=== PATIENT | male | born 1950 | race Caucasian/White ===

== ENCOUNTER 2016-10-04 14:50 | Emergency (ER) | payer OTHER ==
[~2016-10-04] VITALS: Ht 172.7 cm; Wt 93.7 kg
[~2016-10-04 14:50] MED LIST: ASPI325T PO; GABA300C3 PO; LEVEMIR SQ; LISI20 PO; METF500 PO; NIFE1TAB86 PO; PERM5CRE4 TOP
[2016-10-04 14:56] VITALS: BP 153/83; PULSE 94; RESP 16; TEMP 99.3; O2SAT 97
[2016-10-04] MEDS ORDERED: METF500T4 PO (15:09)
[2016-10-04] MEDS ORDERED: LANTUS2P SQ (15:09)
[2016-10-04] MEDS ORDERED: GABA100C4 PO (15:09)
[2016-10-04] MEDS ORDERED: SILV1CRE20 TOPICAL (15:24)
[2016-10-04] MEDS ORDERED: AUGM875T3 PO (15:24)
[2016-10-04] MEDS ORDERED: BACT800T5 PO (15:24)
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
[2016-10-04] MEDS ORDERED: HYDR-3533 PO (15:30)
== END 2016-10-04 15:45 | disposition home or self-care (01) ==
LOC: PHEFT 14:50
DX: J32.1 Chronic frontal sinusitis (principal); T25.222A Burn of second degree of left foot, initial encounter; X08.8XXA Exposure to other specified smoke, fire and flames, initial encounter; Y92.89 Other specified places as the place of occurrence of the external cause
CPT/HCPCS: 99284

== ENCOUNTER 2017-03-13 15:53 | Emergency (ER) | payer OTHER, MEDICAID ==
[~2017-03-13] VITALS: Ht 172.7 cm; Wt 98.1 kg
[~2017-03-13 15:53] MED LIST changes: -ASPI325T PO; +AUGM875T3 PO; +BACT800T5 PO; +GABA100C4 PO; -GABA300C3 PO; +HYDR-3533 PO; +LANTUS2P SQ; -LEVEMIR SQ; -LISI20 PO; -METF500 PO; +METF500T4 PO; -NIFE1TAB86 PO; -PERM5CRE4 TOP; +SILV1CRE20 TOPICAL
[2017-03-13 16:21] VITALS: BP 198/85; PULSE 86; RESP 16; TEMP 98.9; O2SAT 96
[2017-03-13] MEDS ORDERED: LISI2.5T3 PO (16:44)
[2017-03-13] MEDS ORDERED: ATOR10TA15 PO (16:44)
[2017-03-13] MEDS ORDERED: ASPI-516 CHEW (16:44)
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
[2017-03-13] MEDS ORDERED: VANCOMYCIN INJ 1,250 MG in SODIUM CHLOR 0.9% 250 ML INJ 250 ML IV ONE (17:30)
[2017-03-13] MEDS ORDERED: SODIUM CHLORIDE 0.9% FLUSH 10 ML FLUSH IV FLUSH PRN (17:30)
[2017-03-13 17:49] LABS: AUTOMATED NEUTROPHIL # 6.5 TH/MM3 (1.8-7.7); BASOPHIL # 0.1 TH/MM3 (0-0.2); BASOPHIL % 0.6 % (0.0-2.0); EOSINOPHIL # 0.6 TH/MM3 (0-0.4); EOSINOPHIL % 5.9 % (0.0-4.0); HEMATOCRIT 36.2 % (39.0-51.0); LYMPH % 23.3 % (9.0-44.0); LYMPHOCYTE # 2.4 TH/MM3 (1.0-4.8); MEAN CORPUSCULAR HEMOGLOBIN 29.6 PG (27.0-34.0); MEAN CORPUSCULAR HGB CONC 33.2 % (32.0-36.0); MEAN PLATELET VOLUME 7.9 FL (7.0-11.0); MONO % 7.9 % (0.0-8.0); MONOCYTE # 0.8 TH/MM3 (0-0.9); NEUT % 62.3 % (16.0-70.0); PLATELET COUNT 332 TH/MM3 (150-450); RED BLOOD COUNT 4.07 MIL/MM3 (4.50-5.90); WHITE BLOOD COUNT 10.4 TH/MM3 (4.0-11.0)
[2017-03-13 17:59] LABS: BICARBONATE 27.7 MEQ/L (21.0-32.0); CALCIUM 8.9 MG/DL (8.5-10.1)
[2017-03-13 18:03] LABS: CREATININE 1.5 MG/DL (0.60-1.30)
[2017-03-13] MEDS ORDERED: SODIUM CHLOR 0.9% 1000 ML INJ 1,000 ML IV ONE (18:15)
[2017-03-13] MEDS ORDERED: INSULIN HUMAN REGULAR 1,000 UNITS/10 ML VIAL SQ ONE (18:15)
[2017-03-13] MEDS ORDERED: ACETAMINOPHEN 325 MG TAB PO ONE (19:00)
[2017-03-13 19:30] VITALS: BP 202/104; PULSE 84; RESP 18; O2SAT 97
[2017-03-13] MEDS ORDERED: LACTCAP8 PO (19:40)
[2017-03-13] MEDS ORDERED: CLIN300C5 PO (19:40)
[2017-03-13] MEDS ORDERED: MUPI2%T TOPICAL (19:40)
[2017-03-13] MEDS ORDERED: TYLETAB34 PO (19:40)
[2017-03-13] MEDS ORDERED: MUPIROCIN 2% OINT 22 GM TUBE TOPICAL ONE (19:45)
[2017-03-13 20:08] VITALS: BP 193/102
== END 2017-03-13 20:15 | disposition home or self-care (01) ==
LOC: PHED 15:53
DX: L03.115 Cellulitis of right lower limb (principal); E11.65 Type 2 diabetes mellitus with hyperglycemia; N28.9 Disorder of kidney and ureter, unspecified; D63.8 Anemia in other chronic diseases classified elsewhere; I10 Essential (primary) hypertension; M19.90 Unspecified osteoarthritis, unspecified site; F32.9 Major depressive disorder, single episode, unspecified; E78.00 Pure hypercholesterolemia, unspecified; I25.10 Atherosclerotic heart disease of native coronary artery without angina pectoris
CPT/HCPCS: 80048; 85025; 96361; 96365; 96366; 96372; 99284; J1815; J3370; J7030; J7050

== ENCOUNTER 2017-07-16 12:23 | Emergency (ER) | payer OTHER, MEDICAID ==
[~2017-07-16] VITALS: Ht 172.7 cm; Wt 104.6 kg
[~2017-07-16 12:23] MED LIST changes: +ASPI-516 CHEW; +ATOR10TA15 PO; -AUGM875T3 PO; -BACT800T5 PO; +CLIN300C5 PO; -HYDR-3533 PO; +LACTCAP8 PO; +LISI2.5T3 PO; +MUPI2%T TOPICAL; -SILV1CRE20 TOPICAL; +TYLETAB34 PO
[2017-07-16 12:31] VITALS: BP 196/88; PULSE 81; RESP 16; TEMP 98.8; O2SAT 98
[2017-07-16] MEDS ORDERED: DOXY100C PO (13:29)
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
[2017-07-16 14:13] VITALS: BP 158/78
== END 2017-07-16 14:13 | disposition left against medical advice (07) ==
LOC: PHED 12:23
DX: L03.116 Cellulitis of left lower limb (principal); R60.0 Localized edema; E11.9 Type 2 diabetes mellitus without complications; E78.00 Pure hypercholesterolemia, unspecified; F32.9 Major depressive disorder, single episode, unspecified; I10 Essential (primary) hypertension; Z86.73 Personal history of transient ischemic attack (TIA), and cerebral infarction without residual deficits; Z91.19 Patient's noncompliance with other medical treatment and regimen; Z53.20 Procedure and treatment not carried out because of patient's decision for unspecified reasons
CPT/HCPCS: 99281

== ENCOUNTER 2017-10-31 19:06 | Inpatient (IN) ==
[2017-10-31] MEDS ORDERED: Vancomycin Inj 1,000 MG in Sodium Chlor 0.9% Inj 250 ML IV.SIG ONE (20:30)
--- NOTE | 2017-10-31 20:49 | ED ---
HPI General Chief complaint: Extremity Problem,Nontraumatic Stated complaint: Doctor sent Time Seen by Provider: 10/31/17 20:08 Source: patient, RN notes reviewed and old records reviewed Mode of arrival: ambulatory Limitations: no limitations History of Present Illness HPI Narrative: 67-year-old male presents to the emergency department for evaluation of bilateral lower extremity edema and erythema that started approximately 3 weeks ago. He states he was seen the wound care clinic, but states his symptoms are worsening. He denies any fevers or chills. No chest pain or shortness of breath. He states that he saw a vascular surgeon, Dr. Rodriguez, 2 days ago and was told he should go to the emergency department. Patient rates his pain 6/10. He denies any other symptoms or complaints at this time. Moderate severity. MD Complaint: extremity pain and extremity swelling Onset (ago): week(s) (3) Pain Consistency: constant Location: left, right and lower extremity Severity scale (1-10): 6 Quality: aching Radiation: none Relieving factors: immobilization Exacerbating factors: walking Associated symptoms: denies other symptoms Related Data Home Medications Medication Instructions Recorded Confirmed aspirin [Aspirin Low Dose] 81 mg PO DAILY 10/31/17 10/31/17 atorvastatin See Label Instructions .ROUTE 10/31/17 10/31/17 .COMPLEX gabapentin See Label Instructions .ROUTE 10/31/17 10/31/17 .COMPLEX insulin glargine [Lantus Solostar See Label Instructions .ROUTE 10/31/17 U-100 Insulin] .COMPLEX metformin See Label Instructions .ROUTE 10/31/17 10/31/17 .COMPLEX Allergies Allergy/AdvReac Type Severity Reaction Status Date / Time penicillin G Allergy Severe ANAPHYLACTIC Verified 10/31/17 19:49 REACTION Review of Systems ROS: all other systems reviewed are negative PMFSH Medical History Medical History Diabetes (Acute) Hypertension (Acute) Social History Social History Substance History: No History of Abuse Second Hand Smoke Exposure: No Smoking Status: Never smoker How Often Do You Have a Drink Containing Alcohol: Never Recent Travel in [facility] within the Last 8 Weeks: No Recent Out of Country Travel within the Last 8 Weeks: No Immunization History Tetanus Immunization: Unsure Hx Influenza Vaccine This Season: No Exam Narrative Exam Narrative: GENERAL: Well-nourished, well-developed male patient, afebrile SKIN: Focused skin assessment warm/dry. Patient has erythema on bilateral lower extremities from his ankles to his knees. He has open areas on bilateral lower legs. HEAD: Normocephalic. Atraumatic EYES: No scleral icterus. No injection or drainage. NECK: Supple, trachea midline. No JVD or lymphadenopathy. CARDIOVASCULAR: Regular rate and rhythm without murmurs, gallops, or rubs. Bilateral pedal pulses easily found with doppler RESPIRATORY: Breath sounds equal bilaterally. No accessory muscle use. Lung sounds are clear to auscultation GASTROINTESTINAL: Abdomen soft, non-tender, nondistended. MUSCULOSKELETAL: No cyanosis. Patient has 3+ bilateral pitting edema. BACK: No obvious deformity. Course Initial Documented Vital Signs Temperature 97.8 F 10/31/17 19:44 Pulse Rate 81 10/31/17 19:44 Respiratory Rate 18 10/31/17 19:44 Blood Pressure 197/91 H 10/31/17 19:44 Pulse Oximetry 99 10/31/17 19:44 Last Documented Vital Signs Temperature 97.8 F 10/31/17 19:44 Pulse Rate 82 10/31/17 20:10 Respiratory Rate 20 10/31/17 20:10 Blood Pressure 168/77 H 10/31/17 20:10 Pulse Oximetry 97 10/31/17 20:10 Medical Decision Making YAAKOV Attestation YAAKOV supervised visit: Yes Attestation: I, Dr. Paulino, have reviewed the advance practice practitioner's documentation and am in agreement, met with the patient face to face, made the diagnosis, and the medical decision making was done by me. *My assessment and Findings: This patient has cellulitis of both lower extremities. Please see Ana Sams NP's note for a more detailed H&P, final diagnosis and disposition MDM Narrative Medical decision making narrative: 67-year-old male presents to the emergency department stating he was sent for admission by his vascular surgeon, Dr. Rodriguez. I contacted Dr. Rodriguez states that the patient would benefit from IV antibiotics and recommends admission to hospitalist for IV antibiotics. He states it does not have a vascular issue at this time, but significant cellulitis. CBC, CMP, PTT, PT/INR, lactic acid, blood cultures 2 were ordered and pending. Patient is given vancomycin 1 g IV. CBC shows no acute abnormality. CMP shows elevated BUN of 36, creatinine of 2.51, this is increased wince 03/13/17 of BUN 28, creatinine of 1.50. Lactic acid is 0.6. PTT is 29.6. PT/INR is 9.9/1.0. Patient is given NS I L IV bolus. US is pending. Patient is admitted to hospitalist for IV antibiotics. Medical Screen Exam Complete: Yes Emergency Medical Condition: Yes Differential Diagnosis Differential Diagnosis: Cellulitis versus sepsis versus DVT Medical Records Medical records reviewed: Yes I reviewed the patient's medical records. Lab Data Result diagrams: 10/31/17 20:20 10/31/17 20:20 Lab Results 10/31/17 10/31/17 10/31/17 Range/Units 20:20 20:20 20:20 WBC 11.0 (4.0-11.0) th/mm3 RBC 3.55 L (4.50-5.90) mil/mm3 Hgb 10.4 L (13.0-17.0) gm/dL Hct 30.9 L (39.0-51.0) % MCV 87.1 (80.0-100.0) fL MCH 29.4 (27.0-34.0) pg MCHC 33.7 (32.0-36.0) % RDW 14.3 (11.6-17.2) % Plt Count 316 (150-450) th/mm3 MPV 7.4 (7.0-11.0) fL Neut % (Auto) 57.8 (16.0-70.0) % Lymph % (Auto) 25.5 (9.0-44.0) % [place] % (Auto) 10.7 H (0.0-8.0) % Eos % (Auto) 4.8 H (0.0-4.0) % Baso % (Auto) 1.2 (0.0-2.0) % Neut # (Auto) 6.4 (1.8-7.7) th/mm3 Lymph # (Auto) 2.8 (1.0-4.8) th/mm3 [place] # (Auto) 1.2 H (0.0-0.9) th/mm3 Eos # (Auto) 0.5 H (0.0-0.4) th/mm3 Baso # (Auto) 0.1 (0.0-0.2) th/mm3 WBC Differential . Differential Comment Auto diff final PT 9.9 (9.8-11.6) sec INR 1.0 Ratio APTT 29.6 (24.3-30.1) sec Sodium 139 (136-145) meq/L Potassium 3.9 (3.5-5.1) meq/L Chloride 107 (98-107) meq/L Carbon Dioxide 24.1 (21.0-32.0) meq/L Anion Gap 8 (5-15) meq/L BUN 36 H (7-18) mg/dL Creatinine 2.51 H (0.60-1.30) mg/dL Estimated GFR 26 L (>89) mL/min Random Glucose 100 (74-106) mg/dL Lactic Acid (0.4-2.0) mmol/L Calcium 8.4 L (8.5-10.1) mg/dL Total Bilirubin 0.2 (0.2-1.0) mg/dL AST 24 (15-37) U/L ALT 20 (12-78) U/L Alkaline Phosphatase 102 (45-117) U/L Total Protein 6.9 (6.4-8.2) g/dL Albumin 3.0 L (3.4-5.0) g/dL / Range/Units 21:07 WBC (4.0-11.0) th/mm3 RBC (4.50-5.90) mil/mm3 Hgb (13.0-17.0) gm/dL Hct (39.0-51.0) % MCV (80.0-100.0) fL MCH (27.0-34.0) pg MCHC (32.0-36.0) % RDW (11.6-17.2) % Plt Count (150-450) th/mm3 MPV (7.0-11.0) fL Neut % (Auto) (16.0-70.0) % Lymph % (Auto) (9.0-44.0) % [place] % (Auto) (0.0-8.0) % Eos % (Auto) (0.0-4.0) % Baso % (Auto) (0.0-2.0) % Neut # (Auto) (1.8-7.7) th/mm3 Lymph # (Auto) (1.0-4.8) th/mm3 [place] # (Auto) (0.0-0.9) th/mm3 Eos # (Auto) (0.0-0.4) th/mm3 Baso # (Auto) (0.0-0.2) th/mm3 WBC Differential Differential Comment PT (9.8-11.6) sec INR Ratio APTT (24.3-30.1) sec Sodium (136-145) meq/L Potassium (3.5-5.1) meq/L Chloride (98-107) meq/L Carbon Dioxide (21.0-32.0) meq/L Anion Gap (5-15) meq/L BUN (7-18) mg/dL Creatinine (0.60-1.30) mg/dL Estimated GFR (>89) mL/min Random Glucose (74-106) mg/dL Lactic Acid 0.6 (0.4-2.0) mmol/L Calcium (8.5-10.1) mg/dL Total Bilirubin (0.2-1.0) mg/dL AST (15-37) U/L ALT (12-78) U/L Alkaline Phosphatase (45-117) U/L Total Protein (6.4-8.2) g/dL Albumin (3.4-5.0) g/dL Discharge Plan Discharge Disposition Patient Disposition: 30 Still Patient Discharge Details Diagnosis: Bilateral lower leg cellulitis Physicians Team ED Provider: Guillermina Paulino ED Midlevel Provider: Ana Sams Primary Care Provider: NON STAFF,PROVIDER Attending Provider: Mane Lundberg Status ED Status: Admitted Patient
[2017-10-31 21:23] LABS: Baso # (Auto) 0.1 th/mm3 (0.0-0.2); Baso % (Auto) 1.2 % (0.0-2.0); Eos # (Auto) 0.5 th/mm3 (0.0-0.4); Eos % (Auto) 4.8 % (0.0-4.0); Hematocrit 30.9 % (39.0-51.0); Hemoglobin 10.4 gm/dL (13.0-17.0); Lymph # (Auto) 2.8 th/mm3 (1.0-4.8); Lymph % (Auto) 25.5 % (9.0-44.0); Mean Corpuscular HGB Conc 33.7 % (32.0-36.0); Mean Corpuscular Hemoglobin 29.4 pg (27.0-34.0); Mean Corpuscular Volume 87.1 fL (80.0-100.0); Mean Platelet Volume 7.4 fL (7.0-11.0); Mono # (Auto) 1.2 th/mm3 (0.0-0.9); Mono % (Auto) 10.7 % (0.0-8.0); Neut # (Auto) 6.4 th/mm3 (1.8-7.7); Neut % (Auto) 57.8 % (16.0-70.0); Platelet Count 316 th/mm3 (150-450); Red Blood Count 3.55 mil/mm3 (4.50-5.90); Red Cell Distribution Width 14.3 % (11.6-17.2)
[2017-10-31 21:39] LABS: Anion Gap 8 meq/L (5-15); Aspartate Aminotransferase 24 U/L (15-37); Blood Urea Nitrogen 36 mg/dL (7-18); Calcium 8.4 mg/dL (8.5-10.1); Carbon Dioxide 24.1 meq/L (21.0-32.0); Chloride 107 meq/L (98-107); Glomerular Filtration Rate 26 mL/min (>89); Glucose,Random 100 mg/dL (74-106); Potassium 3.9 meq/L (3.5-5.1); Sodium 139 meq/L (136-145)
[2017-10-31 21:41] LABS: Alanine Aminotransferase 20 U/L (12-78)
[2017-10-31 21:43] LABS: Alkaline Phosphatase 102 U/L (45-117); Total Protein 6.9 g/dL (6.4-8.2)
[2017-10-31] MEDS ORDERED: Sod Chloride 0.9% Inj 1,000 ML IV.SIG ONE (21:44)
[2017-10-31 21:45] LABS: Activated Partial Thrombo Time 29.6 sec (24.3-30.1); Prothrombin Time 9.9 sec (9.8-11.6)
--- NOTE | 2017-10-31 23:09 | P.HPIM ---
History of Present Illness Primary Care Physician: PROVIDER NON STAFF Chief Complaint: Lower extremity swelling History of Present Illness: 67 y/o male with a history of diabetes and hyperlipidemia presented to the ED with complaints of bilateral lower extremity swelling. Patient does follow with outpatient wound care and states did have dressings at one point on but they took it off. He followed up with Dr. Howard outpatient to see if it was a vascular issue and Dr. Howard recommended he come to the ED for cellulitis and IV antibiotics. Patient has been having leg swelling weeks. He denies any he does complain of constant, aching pain, 6/10, to his bilateral lower extremities worse with movement and walking, better with rest. Inpatient Certification: I certify that the inpatient services were ordered in accordance with Medicare regulations governing the order. This includes certification that hospital inpatient services are reasonable and necessary and in the case of services not specified as inpatient-only under 42 CFR 419.22(n), that they are appropriately provided as inpatient services in accordance to with the 2-midnight benchmark under 43 CFR 412.3(e) Review of Systems All other systems reviewed negative except as stated in HPI PMFSH - History History Provided By: Patient - Medical / Surgical Hx Neg / Unobtainable Surgical History: No Previous Surgery - Medical History Medical History: Medical History (Last Updated 10/31/17 @ 19:48 by Lupe Schaeffer) Diabetes Hypertension - Family History Family History: Family History (Last Updated 11/01/17 @ 01:57 by LELO Tay) Other Hypertension - Tobacco History Second Hand Smoke Exposure: No Smoking Status: Never smoker - Alcohol History How Often Do You Have a Drink Containing Alcohol: Never - Substance Use History Substance History: No History of Abuse - Travel History Recent Travel in the [place] Within the Last 8 Weeks: No Recent Travel Out of the Country Within the Last 8 Weeks: No - Immunization History Tetanus Immunization: Unsure Hx Influenza Vaccine This Season: No Medications and Allergies Active Medications: Active Medications Cefepime HCl 1,000 mg/ Sodium (Chloride) 100 mls @ 200 mls/hr IV.SIG Q8H VERNA Allergies Allergy/AdvReac Type Severity Reaction Status Date / Time penicillin G Allergy Severe ANAPHYLACTIC Verified 10/31/17 19:49 REACTION Home Medications Medication Instructions Recorded Confirmed Type aspirin [Aspirin Low Dose] 81 mg PO DAILY 10/31/17 10/31/17 History atorvastatin See Label Instructions .ROUTE 10/31/17 10/31/17 History .COMPLEX gabapentin See Label Instructions .ROUTE 10/31/17 10/31/17 History .COMPLEX insulin glargine [Lantus Solostar See Label Instructions .ROUTE 10/31/17 History U-100 Insulin] .COMPLEX metformin See Label Instructions .ROUTE 10/31/17 10/31/17 History .COMPLEX Exam Vital signs: Vital Signs 10/31/17 19:44 10/31/17 20:10 Temperature 97.8 F Pulse Rate 81 82 Respiratory Rate 18 20 Blood Pressure 197/91 H 168/77 H Pulse Oximetry 99 97 Intake & Output 10/31/17 10/31/17 11/01/17 06:59 18:59 06:59 Weight 99.337 kg Narrative: GENERAL: This is a well-nourished, well-developed patient, in no apparent distress. SKIN: Bilateral lower extremity cellulitis, lymphedema, skin tear to left evans EYES: Pupils equal round and reactive, no scleral edema or drainage CARDIOVASCULAR: Regular rate and rhythm without murmurs, gallops, or rubs. RESPIRATORY: Clear to auscultation. Breath sounds equal bilaterally. No wheezes , rales, or rhonchi. GASTROINTESTINAL: Abdomen soft, non-tender, nondistended. Normal active bowel sounds MUSCULOSKELETAL: Extremities without clubbing, cyanosis, or edema. NEURO: Alert & Oriented x4 to person, place, time, situation. Moves all ext x4 Results - Labs CBC & Chem 7: 10/31/17 20:20 10/31/17 20:20 Labs: Short CBC 10/31/17 Range/Units 20:20 WBC 11.0 (4.0-11.0) th/mm3 Hgb 10.4 L (13.0-17.0) gm/dL Hct 30.9 L (39.0-51.0) % Plt Count 316 (150-450) th/mm3 BMP 10/31/17 20:20 Sodium 139 Potassium 3.9 Chloride 107 Carbon Dioxide 24.1 BUN 36 H Creatinine 2.51 H Calcium 8.4 L Liver Function 10/31/17 Range/Units 20:20 Total Bilirubin 0.2 (0.2-1.0) mg/dL AST 24 (15-37) U/L ALT 20 (12-78) U/L Alkaline Phosphatase 102 (45-117) U/L Albumin 3.0 L (3.4-5.0) g/dL Caprini VTE Risk Assessment Caprini VTE Risk Assessment: Moderate/High Risk (score >= 2) Caprini Risk Assessment Model: Point Value = 1 Point Value = 2 Point Value = 3 Point Value = 5 Age 41-60 Minor surgery BMI > 25 kg/m2 Swollen legs Varicose veins or History of unexplained or recurrent spontaneous Oral contraceptives or hormone replacement Sepsis (< 1 month) Serious lung disease, including pneumonia (< 1 month) Abnormal pulmonary function Acute myocardial infarction Congestive heart failure (< 1 month) History of inflammatory bowel disease Medical patient at bed rest Age 61-74 Arthroscopic surgery Major open surgery (> 45 min) Laparoscopic surgery (> 45 min) Malignancy Confined to bed (> 72 hours) Immobilizing plaster cast Central venous access Age >= 75 History of VTE Family history of VTE Factor V Leiden Prothrombin [id number] Lupus anticoagulant Anticardiolipin antibodies Elevated serum homocysteine Heparin-induced thrombocytopenia Other congenital or acquired thrombophilia Stroke (< 1 month) Elective arthroplasty Hip, pelvis, or leg fracture Acute spinal cord injury (< 1 month) Prophylaxis Regimen: Total Risk Factor Score Risk Level Prophylaxis Regimen 0-1 Low Early ambulation 2 Moderate Order ONE of the following: *Sequential Compression Device (SCD) *Heparin 5000 units SQ BID 3-4 Higher Order ONE of the following medications: *Heparin 5000 units SQ TID *Enoxaparin/Lovenox 40 mg SQ daily (WT < 150 kg, CrCl > 30 mL/min) *Enoxaparin/Lovenox 30 mg SQ daily (WT < 150 kg, CrCl > 10-29 mL/min) *Enoxaparin/Lovenox 30 mg SQ BID (WT < 150 kg, CrCl > 30 mL/min) AND/OR *Sequential Compression Device (SCD) 5 or more Highest Order ONE of the following medications: *Heparin 5000 units SQ TID (Preferred with Epidurals) *Enoxaparin/Lovenox 40 mg SQ daily (WT < 150 kg, CrCl > 30 mL/min) *Enoxaparin/Lovenox 30 mg SQ daily (WT < 150 kg, CrCl > 10-29 mL/min) *Enoxaparin/Lovenox 30 mg SQ BID (WT < 150 kg, CrCl > 30 mL/min) AND *Sequential Compression Device (SCD) Assessment and Plan - Plan Cellulitis, bilateral -Iv antibiotics Vancomycin and Zosyn -Consult wound care, patient may benefit from rachel wrapping -Pain management with p.o. [place] -Bilateral venous Doppler ordered to rule out dvt Acute kidney injury, creatine 2.5, baseline 1.5 -IVF for hydration -Trend creatine -Consider kidney ultrasound if no improvement Diabetes, chronic -Accu checks with SSI -Diabetic diet -Continue home gabapentin -Hold Metformin due to kidney function Hyperlipidemia, chronic -Resume home medications DVT prophylaxis: Heparin Discussed Condition With: Patient, RN and ED physician
[2017-10-31] MEDS ORDERED: Acetaminophen 325 MG Tablet PO PRN (23:11)
[2017-10-31] MEDS ORDERED: Vancomycin Consult Pharmacy 1 EACH OTHER SCH (23:45)
[2017-11-01] MEDS: Heparin - SQ 10,000 UNITS/ML Vial SQ SCH ×4 (01:23→23:51)
[2017-11-01] MEDS ORDERED: Dextrose 50% in Water 50 ML Vial IV.PUSH PRN (01:53)
[2017-11-01] MEDS: Sod Chloride 0.9% Inj 1,000 ML IV.CONT SCH ×3 (01:57→23:46)
[2017-11-01 07:30] LABS: Baso # (Auto) 0.1 th/mm3 (0.0-0.2); Baso % (Auto) 0.9 % (0.0-2.0); Eos # (Auto) 0.5 th/mm3 (0.0-0.4); Eos % (Auto) 4.7 % (0.0-4.0); Hematocrit 29.8 % (39.0-51.0); Hemoglobin 10.3 gm/dL (13.0-17.0); Lymph # (Auto) 2.1 th/mm3 (1.0-4.8); Lymph % (Auto) 21.2 % (9.0-44.0); Mean Corpuscular HGB Conc 34.5 % (32.0-36.0); Mean Platelet Volume 8.1 fL (7.0-11.0); Mono # (Auto) 1.2 th/mm3 (0.0-0.9); Mono % (Auto) 12.2 % (0.0-8.0); Platelet Count 277 th/mm3 (150-450); Red Blood Count 3.43 mil/mm3 (4.50-5.90); Red Cell Distribution Width 14.3 % (11.6-17.2); White Blood Count 9.9 th/mm3 (4.0-11.0)
[2017-11-01 07:55] LABS: Calcium 7.9 mg/dL (8.5-10.1); Carbon Dioxide 25.6 meq/L (21.0-32.0); Potassium 3.8 meq/L (3.5-5.1)
[2017-11-01] MEDS: Gabapentin 100 MG Capsule PO PRN (08:18)
[2017-11-01] MEDS: Insulin NovoLOG Aspart Correctional Sugar Inj SQ SCH ×4 (10:17→20:31)
--- NOTE | 2017-11-01 12:32 | P.PNIM ---
Subjective Interval history: 67 y/o male with a history of diabetes and hyperlipidemia presented to the ED with complaints of bilateral lower extremity swelling. Patient does follow with outpatient wound care and states did have dressings at one point on but they took it off. He followed up with Dr. Howard outpatient to see if it was a vascular issue and Dr. Howard recommended he come to the ED for cellulitis and IV antibiotics. Patient has been having leg swelling weeks. He denies any he does complain of constant, aching pain, 6/10, to his bilateral lower extremities worse with movement and walking, better with rest. 8-16 PATIENT COMPLAINS OF PAIN AND SWELLING IN LEGS WITH CHRONIC WOUNDS CURRENTLY ON ANTIBIOTICS WANTS TO SEE DR Howard WILL CONSULT CONSULT PT AND OT AM LABS Physical Exam Vital signs: Vital Signs 10/31/17 19:44 10/31/17 20:10 11/01/17 01:22 Temperature 97.8 F 97.6 F Pulse Rate 81 82 76 Respiratory Rate 18 20 20 Blood Pressure 197/91 H 168/77 H 176/86 H Pulse Oximetry 99 97 96 11/01/17 06:36 11/01/17 08:00 11/01/17 12:00 Temperature 98.6 F 97.9 F 97.5 F L Pulse Rate 81 82 75 Respiratory Rate 18 20 20 Blood Pressure 185/88 H 160/73 H 160/66 H Pulse Oximetry 97 96 98 Intake & Output 10/31/17 11/01/17 11/01/17 18:59 06:59 18:59 Intake Total 1710 / 1710 1000 / 1000 Output Total 500 / 500 Balance 1210 / 1210 1000 / 1000 Weight 99.34 kg Intake: IV 1350 / 1350 1000 / 1000 NS Inj 1,000 ML @ 100 mls/hr IV 1000 / 1000 .CONT .Q10H VERNA Rx#:[id number] Maxipime Inj 1,000 MG In NS Inj 100 / 100 100 ML @ 200 mls/hr IV.SIG Q8H VERNA Rx#:[id number] NS Inj 1,000 ML @ Wide Open IV. 1000 / 1000 SIG BOLUS ONE Rx#:[id number] Vancomycin Inj 1,000 MG In NS 250 / 250 Inj 250 ML @ 250 mls/hr IV.SIG ONCE ONE Rx#:[id number] Oral 360 / 360 Output: Urine 500 / 500 Other: # Urine Diapers 3 Narrative: Awake alert and oriented 3 talkative and cooperative GENERAL: This is a well-nourished, well-developed patient, in no apparent distress. SKIN: Bilateral lower extremity cellulitis, lymphedema, skin tear to left evans versus wound EYES: Pupils equal round and reactive, no scleral edema or drainage EOMI NECK SUPPLE NO JVD CARDIOVASCULAR: Regular rate and rhythm without murmurs, gallops, or rubs. S1- S2 no S3 or S4 RESPIRATORY: Clear to auscultation. Breath sounds equal bilaterally. No wheezes , rales, or rhonchi. GASTROINTESTINAL: Abdomen soft, non-tender, nondistended. Normal active bowel sounds obese MUSCULOSKELETAL: Extremities without clubbing, cyanosis, or +2-3 bilateral lower extremity edema NEURO: Alert & Oriented x4 to person, place, time, situation. Moves all ext x4 Insight and judgment is good Mood and behavior is appropriate Results - Labs CBC & Chem 7: 11/01/17 05:50 11/01/17 05:50 Laboratory Results - last 24 hr 10/31/17 10/31/17 10/31/17 20:20 20:20 20:20 WBC 11.0 RBC 3.55 L Hgb 10.4 L Hct 30.9 L MCV 87.1 MCH 29.4 MCHC 33.7 RDW 14.3 Plt Count 316 MPV 7.4 Neut % (Auto) 57.8 Lymph % (Auto) 25.5 [place] % (Auto) 10.7 H Eos % (Auto) 4.8 H Baso % (Auto) 1.2 Neut # (Auto) 6.4 Lymph # (Auto) 2.8 [place] # (Auto) 1.2 H Eos # (Auto) 0.5 H Baso # (Auto) 0.1 WBC Differential . Differential Comment Auto diff final PT 9.9 INR 1.0 APTT 29.6 Sodium 139 Potassium 3.9 Chloride 107 Carbon Dioxide 24.1 Anion Gap 8 BUN 36 H Creatinine 2.51 H Estimated GFR 26 L POC Glucose Random Glucose 100 Lactic Acid Calcium 8.4 L Total Bilirubin 0.2 AST 24 ALT 20 Alkaline Phosphatase 102 Total Protein 6.9 Albumin 3.0 L 10/31/17 11/01/17 11/01/17 21:07 05:50 05:50 WBC 9.9 RBC 3.43 L Hgb 10.3 L Hct 29.8 L MCV 87.0 MCH 30.0 MCHC 34.5 RDW 14.3 Plt Count 277 MPV 8.1 Neut % (Auto) 61.0 Lymph % (Auto) 21.2 [place] % (Auto) 12.2 H Eos % (Auto) 4.7 H Baso % (Auto) 0.9 Neut # (Auto) 6.0 Lymph # (Auto) 2.1 [place] # (Auto) 1.2 H Eos # (Auto) 0.5 H Baso # (Auto) 0.1 WBC Differential . Differential Comment Auto diff final PT INR APTT Sodium 143 Potassium 3.8 Chloride 111 H Carbon Dioxide 25.6 Anion Gap 6 BUN 32 H Creatinine 2.45 H Estimated GFR 27 L POC Glucose Random Glucose 65 L Lactic Acid 0.6 Calcium 7.9 L Total Bilirubin AST ALT Alkaline Phosphatase Total Protein Albumin 11/01/17 11/01/17 08:14 11:56 WBC RBC Hgb Hct MCV MCH MCHC RDW Plt Count MPV Neut % (Auto) Lymph % (Auto) [place] % (Auto) Eos % (Auto) Baso % (Auto) Neut # (Auto) Lymph # (Auto) [place] # (Auto) Eos # (Auto) Baso # (Auto) WBC Differential Differential Comment PT INR APTT Sodium Potassium Chloride Carbon Dioxide Anion Gap BUN Creatinine Estimated GFR POC Glucose 165 H 82 Random Glucose Lactic Acid Calcium Total Bilirubin AST ALT Alkaline Phosphatase Total Protein Albumin Microbiology 10/31/17 21:00 Blood - Peripheral Aerobic Blood Culture - Preliminary No growth in 1 day 10/31/17 21:00 Blood - Peripheral Anaerobic Blood Culture - Preliminary No growth in 1 day 10/31/17 21:00 Blood - Peripheral Aerobic Blood Culture - Preliminary No growth in 1 day 10/31/17 21:00 Blood - Peripheral Anaerobic Blood Culture - Preliminary No growth in 1 day - Imaging Had outpatient ultrasounds of bilateral lower extremities that shows no DVT Assessment and Plan - Plan Cellulitis, bilateral -Iv antibiotics Vancomycin and Zosyn -Consult wound care, patient may benefit from rachel wrapping--PROBABLY NEEDS LYMPHEDEMA TREATMENTS -Pain management with p.o. [place] -Bilateral venous Doppler WERE DONE YESTERDAY AN OUTPT AND NOTED TO BE NEGATIVE - CONSULT DR Howard FOR SEVERE PVOD Acute kidney injury, creatine 2.5, baseline 1.5 -IVF for hydration -Trend creatine -Consider kidney ultrasound if no improvement Diabetes, chronic -Accu checks with SSI -Diabetic diet -Continue home gabapentin -Hold Metformin due to kidney function Hyperlipidemia, chronic -Resume home medications DVT prophylaxis: Heparin AM LABS PT AND OT Code Status: FULL CODE Discussed Condition With: RN AND PT AND CM Discharge Planning: ONCE IMPROVED AND CLEARED BY ALL
--- NOTE | 2017-11-01 18:23 | MB ---
cc: Jameson Rodriguez MD DATE: 11/01/2017 REASONS FOR CONSULTATION: Edema of both legs, chronic venous stasis, possible vascular insufficiency. HISTORY OF PRESENT ILLNESS: This is a 67-year-old gentleman with longstanding history of hyperlipidemia and diabetes, came initially to my office to be evaluated for peripheral vascular changes. 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 The patient was referred to go to the emergency room, but he could not make it the first day. Patient, therefore, showed up last night. The patient is not being seen for any vascular implications. PAST MEDICAL HISTORY: Diabetes mellitus and hypertension. PAST SURGICAL HISTORY: Negative. ALLERGIES: NONE. SOCIAL HISTORY: The patient does not drink, does not smoke. PHYSICAL EXAMINATION: GENERAL: Reveals a very pleasant 67-year-old gentleman. HEENT: Normocephalic. No trauma to the head. Pupils equal, reactive. Extraocular muscles intact. NECK: Supple. Bilateral carotid pulses. No bruits. CHEST: Clear, bilateral breath sounds. HEART: Regular rate and rhythm. ABDOMEN: Soft. Active bowel sounds. No rebound, no guarding, no masses. EXTREMITIES: The patient has strong Dopplerable popliteal pulses. He has weak posterior tibial bilateral and weak dorsalis pedis bilateral, but part of this is probably due to the patient's skin condition and the penetrates of the ultrasound signal. Examination of the extremities reveals organized edema, hemosiderosis, and stigmata of chronic venous stasis below the level of the knees. Patient has extensive edema with liposclerosis and elephantiasis. In addition, he has a stasis ulcer on the lateral aspect of his right lower leg and then peeling skin on the medial aspect of his left leg. Feet are warm. NEUROLOGIC: The patient is grossly intact. IMPRESSION AND RECOMMENDATIONS: This gentleman has a longstanding stigmata of chronic venous stasis and chronic venous insufficiency. At some point in the distant past, he must have had a DVT, which he may not have even known about, which destroyed his valvular system in the veins and started developing stasis. 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 Patient does have cellulitis and possible infection, and this is treated adequately already. At this point, I recommend this to be washed with soap and water daily, dressed with Xeroform over the areas of injuries, and then wrapped firmly with BERRY, and this should be wrapped at least 3 times a day in order to minimize and eliminate the edema as much as it can be. The patient should also elevate his legs. The patient's creatinine is elevated, therefore, vascular studies cannot be performed at this time. Arterial ultrasound will have no value in this patient considering his anatomy. So, CTA with runoff would be the appropriate study, but right now creatinine is 2.4, and this can always be done on an outpatient basis. Nothing more to add. I thank you very much for referral. MD LARISA Ramon/robert , 05:39 PM , 05:48 PM
[2017-11-01] MEDS: Metoprolol Tartrate 25 MG Tablet PO SCH (22:07)
--- NOTE | 2017-11-02 05:46 | P.PNWCN ---
Wound Care Nurse Consult Description: Consult for wound management of bilateral lower extremities per Selvin LIND Recommendation: Please follow wound care orders in place per Dr Howard Additional information: Dr Howard was consulted and placed orders for daily nursing dressing changes. Patient not seen by wound care for leg wounds.
[2017-11-02] MEDS: Sod Chloride 0.9% Inj 1,000 ML IV.CONT SCH ×2 (07:35→16:26)
[2017-11-02] MEDS: Insulin NovoLOG Aspart Correctional Sugar Inj SQ SCH ×5 (08:24→23:15)
[2017-11-02 08:58] LABS: Baso # (Auto) 0.1 th/mm3 (0.0-0.2); Baso % (Auto) 1.1 % (0.0-2.0); Eos # (Auto) 0.5 th/mm3 (0.0-0.4); Eos % (Auto) 6.1 % (0.0-4.0); Hematocrit 26.9 % (39.0-51.0); Hemoglobin 9.2 gm/dL (13.0-17.0); Lymph # (Auto) 1.8 th/mm3 (1.0-4.8); Lymph % (Auto) 21.5 % (9.0-44.0); Mean Corpuscular HGB Conc 34.3 % (32.0-36.0); Mean Corpuscular Hemoglobin 30.2 pg (27.0-34.0); Mean Corpuscular Volume 88.3 fL (80.0-100.0); Mean Platelet Volume 8.1 fL (7.0-11.0); Mono % (Auto) 12.5 % (0.0-8.0); Neut # (Auto) 4.9 th/mm3 (1.8-7.7); Neut % (Auto) 58.8 % (16.0-70.0); Platelet Count 251 th/mm3 (150-450); Red Blood Count 3.05 mil/mm3 (4.50-5.90); White Blood Count 8.3 th/mm3 (4.0-11.0)
[2017-11-02] MEDS: Metoprolol Tartrate 25 MG Tablet PO SCH ×2 (09:01→20:33)
[2017-11-02 09:33] LABS: Alanine Aminotransferase 15 U/L (12-78); Albumin 2.4 g/dL (3.4-5.0); Alkaline Phosphatase 76 U/L (45-117); Anion Gap 8 meq/L (5-15); Aspartate Aminotransferase 22 U/L (15-37); Blood Urea Nitrogen 32 mg/dL (7-18); Calcium 7.8 mg/dL (8.5-10.1); Carbon Dioxide 21.7 meq/L (21.0-32.0); Chloride 111 meq/L (98-107); Free T4 (Free Thyroxine) 0.92 ng/dL (0.76-1.46); Glomerular Filtration Rate 29 mL/min (>89); Glucose,Random 84 mg/dL (74-106); Magnesium 1.8 mg/dL (1.5-2.5); Phosphorus 2.6 mg/dL (2.5-4.9); Potassium 4.2 meq/L (3.5-5.1); Sodium 141 meq/L (136-145); Total Protein 5.7 g/dL (6.4-8.2); Vancomycin,Random 4.8 Comment
--- NOTE | 2017-11-02 10:20 | P.PNIM ---
Subjective Interval history: Renal function is not improving significantly. Prior baseline was 1.0-1.5. Currently renal function is a 2.2. At admit renal function was 2.7. Cellulitis continues to improve through time on cefepime. Physical Exam Vital signs: Vital Signs 11/01/17 12:00 11/01/17 16:00 11/01/17 17:44 Temperature 97.5 F L 97.8 F Pulse Rate 75 76 Respiratory Rate 20 20 Blood Pressure 160/66 H 183/85 H 151/80 H Pulse Oximetry 98 98 11/01/17 20:00 11/01/17 21:10 11/02/17 00:00 Temperature 97.9 F 97.9 F Pulse Rate 85 81 Respiratory Rate 22 22 Blood Pressure 199/95 H 180/90 H 190/91 H Pulse Oximetry 95 94 L 11/02/17 01:55 11/02/17 04:00 11/02/17 07:26 Temperature 98.0 F 98.2 F Pulse Rate 80 80 75 Respiratory Rate 22 16 Blood Pressure 177/77 H 186/91 H 175/83 H Pulse Oximetry 95 98 Intake & Output 11/01/17 11/02/17 11/02/17 18:59 06:59 18:59 Intake Total 1800 / 1800 1100 / 1100 Output Total 675 / 675 Balance 1125 / 1125 1100 / 1100 Intake: IV 1200 / 1200 1100 / 1100 NS Inj 1,000 ML @ 100 mls/hr IV 1000 / 1000 1000 / 1000 .CONT .Q10H [facility] Rx#:[id number] Maxipime Inj 1,000 MG In NS Inj 200 / 200 100 / 100 100 ML @ 200 mls/hr IV.SIG Q8H [facility] Rx#:[id number] Oral 600 / 600 Output: Urine 675 / 675 Other: # Voids 1 3 # Bowel Movements 1 Narrative: GENERAL: NAD, A&Ox3 HEAD: Normocephalic. NECK: Supple, trachea midline. No lymphadenopathy. EYES: No scleral icterus. No injection or drainage. CARDIOVASCULAR: Regular rate and rhythm without murmurs, gallops, or rubs. RESPIRATORY: Breath sounds equal bilaterally. No accessory muscle use. GASTROINTESTINAL: Abdomen soft, non-tender, nondistended. MUSCULOSKELETAL: No cyanosis, or edema. SKIN: Warm and dry. Bilateral distal lower extremity erythema and induration, legs wrapped. NEURO: No focal neurological deficits. Results - Labs CBC & Chem 7: 11/02/17 07:00 11/02/17 07:00 Laboratory Results - last 24 hr 11/01/17 11/01/17 11/01/17 11:56 16:39 20:27 WBC RBC Hgb Hct MCV MCH MCHC RDW Plt Count MPV Neut % (Auto) Lymph % (Auto) [place] % (Auto) Eos % (Auto) Baso % (Auto) Neut # (Auto) Lymph # (Auto) [place] # (Auto) Eos # (Auto) Baso # (Auto) WBC Differential Differential Comment Sodium Potassium Chloride Carbon Dioxide Anion Gap BUN Creatinine Estimated GFR POC Glucose 82 165 H 199 H Random Glucose Calcium Phosphorus Magnesium Total Bilirubin AST ALT Alkaline Phosphatase Total Protein Albumin TSH Free T4 Random Vancomycin 11/02/17 11/02/17 11/02/17 07:00 07:00 08:20 WBC 8.3 RBC 3.05 L Hgb 9.2 L Hct 26.9 L MCV 88.3 MCH 30.2 MCHC 34.3 RDW 14.0 Plt Count 251 MPV 8.1 Neut % (Auto) 58.8 Lymph % (Auto) 21.5 [place] % (Auto) 12.5 H Eos % (Auto) 6.1 H Baso % (Auto) 1.1 Neut # (Auto) 4.9 Lymph # (Auto) 1.8 [place] # (Auto) 1.0 H Eos # (Auto) 0.5 H Baso # (Auto) 0.1 WBC Differential . Differential Comment Auto diff final Sodium 141 Potassium 4.2 Chloride 111 H Carbon Dioxide 21.7 Anion Gap 8 BUN 32 H Creatinine 2.29 H Estimated GFR 29 L POC Glucose 93 Random Glucose 84 Calcium 7.8 L Phosphorus 2.6 Magnesium 1.8 Total Bilirubin 0.3 AST 22 ALT 15 Alkaline Phosphatase 76 Total Protein 5.7 L D Albumin 2.4 L D TSH 1.480 Free T4 0.92 Random Vancomycin 4.8 Microbiology 10/31/17 21:00 Blood - Peripheral Aerobic Blood Culture - Preliminary No growth in 1 day 10/31/17 21:00 Blood - Peripheral Anaerobic Blood Culture - Preliminary No growth in 1 day 10/31/17 21:00 Blood - Peripheral Aerobic Blood Culture - Preliminary No growth in 1 day 10/31/17 21:00 Blood - Peripheral Anaerobic Blood Culture - Preliminary No growth in 1 day Assessment and Plan - Plan 67-year-old male admitted secondary to bilateral lower extremity cellulitis with acute kidney injury Cellulitis, bilateral Continue cefepime Continue [place] as needed Vascular surgeon following Acute kidney injury Slow improvement Renal ultrasound ordered Continue IV hydration Nephrology consulted Diabetes mellitus type 2 Follow blood sugars Insulin sliding scale Diabetic diet Hyperlipidemia Continue present treatment Follow as an outpatient DVT prophylaxis Heparin
[2017-11-02] MEDS ORDERED: Furosemide 20 MG Tablet PO ONE (10:21)
[2017-11-02] MEDS: Heparin - SQ 10,000 UNITS/ML Vial SQ SCH ×3 (10:58→23:08)
[2017-11-02 14:14] LABS: Hemoglobin A1c 8.2 % (4.3-6.0)
[2017-11-02] MEDS ORDERED: Vancomycin Inj 1,500 MG in Sodium Chlor 0.9% Inj 500 ML IV.SIG ONE (15:00)
--- NOTE | 2017-11-02 15:27 | US ---
EXAM DATE: 11/02/2017 3:23 PM EDT AGE/SEX: 67 years / Male INDICATIONS: Increased BUN/Creatinine. CLINICAL DATA: This is the patient's initial encounter. Patient reports that signs and symptoms have been present for 1 day and indicates a pain score of 0/10. MEDICAL/SURGICAL HISTORY: Diabetes. Hyperlipidemia. Bilateral lower extremity swelling. None. COMPARISON: No prior exams available for comparison. MEASUREMENTS: Right Kidney:__11.4 x 6.2 x 5.7 cm Left Kidney:__12.5 x 5.6 x 6.6 cm FINDINGS: Right Kidney: Increased echotexture. No mass or hydronephrosis. Left Kidney: Increased echotexture. No mass or hydronephrosis. Bladder: Within normal limits given the degree of distension. Other: None. CONCLUSION: 1. Mildly increased renal echogenicity characteristic of medical renal disease. No acute findings. Electronically signed by: Hayes Bryan MD 11/02/2017 3:26 PM EDT
--- NOTE | 2017-11-02 17:40 | P.PNVS ---
Subjective Subjective/Hospital Course: 11/02/2017 This gentleman has a longstanding stigmata of chronic venous stasis and chronic venous insufficiency. At some point in the distant past, he must have had a DVT, which he may not have even known about, which destroyed his valvular system in the veins and started developing stasis. 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 Patient does have cellulitis and possible infection, and this is treated adequately already. At this point, I recommend this to be washed with soap and water daily, dressed with Xeroform over the areas of injuries, and then wrapped firmly with JAMIE, and this should be wrapped at least 3 times a day in order to minimize and eliminate the edema as much as it can be. The patient should also elevate his legs. The patient's creatinine is elevated, therefore, vascular studies cannot be performed at this time. Arterial ultrasound will have no value in this patient considering his anatomy. So, CTA with runoff would be the appropriate study, but right now creatinine is 2.4, and this can always be done on an outpatient basis. Nothing more to add. Patient doing much better today There is a significant decrease in swelling of both legs with application of Jamie bandages and there is also decrease in the rubor and cellulitis Renal function is improving Nothing to add from surgical point and I would continue the current therapy Objective Vital Signs / I&O: Vital Signs 11/01/17 17:44 11/01/17 20:00 11/01/17 21:10 Temperature 97.9 F Pulse Rate 85 Respiratory Rate 22 Blood Pressure 151/80 H 199/95 H 180/90 H Pulse Oximetry 95 11/02/17 00:00 11/02/17 01:55 11/02/17 04:00 Temperature 97.9 F 98.0 F Pulse Rate 81 80 80 Respiratory Rate 22 22 Blood Pressure 190/91 H 177/77 H 186/91 H Pulse Oximetry 94 L 95 11/02/17 07:26 11/02/17 12:00 11/02/17 16:00 Temperature 98.2 F 97.5 F L 98.0 F Pulse Rate 75 69 72 Respiratory Rate 16 18 16 Blood Pressure 175/83 H 195/88 H 201/89 H Pulse Oximetry 98 98 99 Intake & Output 08/16/18 08/17/18 08/17/18 18:59 06:59 18:59 Intake Total 1800 / 1800 1100 / 1100 1100 / 1100 Output Total 675 / 675 Balance 1125 / 1125 1100 / 1100 1100 / 1100 Intake: IV 1200 / 1200 1100 / 1100 1100 / 1100 NS Inj 1,000 ML @ 75 mls/hr IV. 1000 / 1000 1000 / 1000 1000 / 1000 CONT .[id number] [facility] Rx#:[id number] Maxipime Inj 1,000 MG In NS Inj 200 / 200 100 / 100 100 / 100 100 ML @ 200 mls/hr IV.SIG Q8H [facility] Rx#:[id number] Oral 600 / 600 Output: Urine 675 / 675 Other: # Voids 1 3 # Bowel Movements 1 Laboratory Results - last 24 hr 11/01/17 11/02/17 11/02/17 20:27 07:00 07:00 WBC 8.3 RBC 3.05 L Hgb 9.2 L Hct 26.9 L MCV 88.3 MCH 30.2 MCHC 34.3 RDW 14.0 Plt Count 251 MPV 8.1 Neut % (Auto) 58.8 Lymph % (Auto) 21.5 [place] % (Auto) 12.5 H Eos % (Auto) 6.1 H Baso % (Auto) 1.1 Neut # (Auto) 4.9 Lymph # (Auto) 1.8 [place] # (Auto) 1.0 H Eos # (Auto) 0.5 H Baso # (Auto) 0.1 WBC Differential . Differential Comment Auto diff final Sodium 141 Potassium 4.2 Chloride 111 H Carbon Dioxide 21.7 Anion Gap 8 BUN 32 H Creatinine 2.29 H Estimated GFR 29 L POC Glucose 199 H Random Glucose 84 Hemoglobin A1c Calcium 7.8 L Phosphorus 2.6 Magnesium 1.8 Total Bilirubin 0.3 AST 22 ALT 15 Alkaline Phosphatase 76 Total Protein 5.7 L D Albumin 2.4 L D TSH 1.480 Free T4 0.92 Random Vancomycin 4.8 11/02/17 11/02/17 11/02/17 07:00 08:20 12:48 WBC RBC Hgb Hct MCV MCH MCHC RDW Plt Count MPV Neut % (Auto) Lymph % (Auto) [place] % (Auto) Eos % (Auto) Baso % (Auto) Neut # (Auto) Lymph # (Auto) [place] # (Auto) Eos # (Auto) Baso # (Auto) WBC Differential Differential Comment Sodium Potassium Chloride Carbon Dioxide Anion Gap BUN Creatinine Estimated GFR POC Glucose 93 165 H Random Glucose Hemoglobin A1c 8.2 H Calcium Phosphorus Magnesium Total Bilirubin AST ALT Alkaline Phosphatase Total Protein Albumin TSH Free T4 Random Vancomycin 11/02/17 17:24 WBC RBC Hgb Hct MCV MCH MCHC RDW Plt Count MPV Neut % (Auto) Lymph % (Auto) [place] % (Auto) Eos % (Auto) Baso % (Auto) Neut # (Auto) Lymph # (Auto) [place] # (Auto) Eos # (Auto) Baso # (Auto) WBC Differential Differential Comment Sodium Potassium Chloride Carbon Dioxide Anion Gap BUN Creatinine Estimated GFR POC Glucose 141 H Random Glucose Hemoglobin A1c Calcium Phosphorus Magnesium Total Bilirubin AST ALT Alkaline Phosphatase Total Protein Albumin TSH Free T4 Random Vancomycin Microbiology 10/31/17 21:00 Aerobic Blood Culture - Preliminary Blood - Peripheral No growth in 2 days Anaerobic Blood Culture - Preliminary No growth in 2 days 10/31/17 21:00 Aerobic Blood Culture - Preliminary Blood - Peripheral No growth in 2 days Anaerobic Blood Culture - Preliminary No growth in 2 days Impressions Abdomen/Bladder Ultrasound 11/02/17 00:00 CONCLUSION: 1. Mildly increased renal echogenicity characteristic of medical renal disease. No acute findings.
--- NOTE | 2017-11-02 18:05 | P.CONNP ---
History of Present Illness Service: Nephrology Consult date: 11/02/17 Primary Care Provider: PROVIDER NON STAFF Family Provider: UNKNOWN Chief Complaint: Lower extremity swelling History of Present Illness: 67-year-old male with history of diabetes and hypertension who is having increasing leg edema admitted with peripheral vascular disease his creatinine was 1.5 last year and now it has gone up to 2.5 which has improved to 2.2, patient denies knowledge of kidney stones and prostate problems Urinary output is good denies dysuria has bubbles in the urine. He is diabetic for 2 years, diabetes poorly controlled and his blood pressure is poorly controlled. Review of Systems Cardiovascular: Reports generalized swelling Respiratory: Reports shortness of breath Musculoskeletal: Reports joint swelling PMFSH - History History Provided By: Patient - Medical History Medical History: Medical History (Last Reviewed 11/02/17 @ 10:14 by Bossman Delacruz) Diabetes HLD (hyperlipidemia) - Family History Family History: Family History (Last Reviewed 11/02/17 @ 10:14 by Bossman Delacruz) Other Hypertension - Tobacco History Second Hand Smoke Exposure: No Tobacco Use In Past 30 Days: No Smoking Status: Never smoker Tobacco Type: Cigarettes - Alcohol History How Often Do You Have a Drink Containing Alcohol: Never - Substance Use History Substance History: No History of Abuse - Travel History Recent Travel in the [place] Within the Last 8 Weeks: No Recent Travel Out of the Country Within the Last 8 Weeks: No - Immunization History Tetanus Immunization: Unsure Hx Influenza Vaccine This Season: No Medications and Allergies Active Medications: Active Medications Acetaminophen (Tylenol) 650 mg PO Q4H PRN PRN Reason: Temp > 100.4 Hydrocodone Bitart/Acetaminophen ([place] 5/325) 1 tab PO Q4H PRN PRN Reason: pain 1 to 10 Last Admin: 11/01/17 08:18 Dose: 1 tab Aspirin (Ecotrin) 81 mg PO DAILY [facility] Last Admin: 11/02/17 09:01 Dose: 81 mg Atorvastatin Calcium (Lipitor) 10 mg PO HS [facility] Last Admin: 11/01/17 20:31 Dose: 10 mg Clonidine HCl (Catapres) 0.1 mg PO Q6H PRN PRN Reason: SYS BP GREATER THAN 160 MMHG Dextrose (D50w Vial) 50 ml IV.PUSH UNSCH PRN PRN Reason: PER HYPOGLYCEMIA PROTOCOL Furosemide (Lasix) 20 mg PO DAILY [facility] Gabapentin (Neurontin) 100 mg PO TID PRN PRN Reason: Neuropathy Last Admin: 11/01/17 08:18 Dose: 100 mg Glucagon (Glucagon Inj) 1 mg OTHER PRN PRN PRN Reason: for Hypoglycemia Protocol Heparin Sodium (Porcine) (Heparin Inj) 5,000 units SQ Q12H [facility] Last Admin: 11/02/17 11:00 Dose: Not Given Cefepime HCl 1,000 mg/ Sodium (Chloride) 100 mls @ 200 mls/hr IV.SIG Q8H [facility] Last Infusion: 11/02/17 10:16 Dose: Infused Sodium Chloride (Ns Inj) 1,000 mls @ 75 mls/hr IV.CONT .[id number] [facility] Last Admin: 11/02/17 16:26 Dose: 75 mls/hr Pharmacy Profile Note (Vancomycin Consult Pharmacy) 0 mls @ 0 mls/hr OTHER UNSCH [facility] Insulin Aspart (Novolog Insulin Correctional Sugar Inj) 0 unit SQ ACHS [facility]; Protocol Last Admin: 11/02/17 17:53 Dose: Not Given Metoprolol Tartrate (Lopressor) 25 mg PO BID [facility] Last Admin: 11/02/17 09:01 Dose: 25 mg Ondansetron HCl (Zofran Inj) 4 mg IV.PUSH Q6H PRN PRN Reason: NAUSEA OR VOMITING Allergies Allergy/AdvReac Type Severity Reaction Status Date / Time penicillin G Allergy Severe ANAPHYLACTIC Verified 10/31/17 19:49 REACTION Home Medications Medication Instructions Recorded Confirmed Type aspirin [Aspirin Low Dose] 81 mg PO DAILY 10/31/17 10/31/17 History atorvastatin See Label Instructions .ROUTE 10/31/17 10/31/17 History .COMPLEX gabapentin See Label Instructions .ROUTE 10/31/17 10/31/17 History .COMPLEX insulin glargine [Lantus Solostar See Label Instructions .ROUTE 10/31/17 History U-100 Insulin] .COMPLEX metformin See Label Instructions .ROUTE 10/31/17 10/31/17 History .COMPLEX Exam Vital signs: Vital Signs 11/01/17 20:00 11/01/17 21:10 11/02/17 00:00 Temperature 97.9 F 97.9 F Pulse Rate 85 81 Respiratory Rate 22 22 Blood Pressure 199/95 H 180/90 H 190/91 H Pulse Oximetry 95 94 L 11/02/17 01:55 11/02/17 04:00 11/02/17 07:26 Temperature 98.0 F 98.2 F Pulse Rate 80 80 75 Respiratory Rate 22 16 Blood Pressure 177/77 H 186/91 H 175/83 H Pulse Oximetry 95 98 11/02/17 12:00 11/02/17 16:00 Temperature 97.5 F L 98.0 F Pulse Rate 69 72 Respiratory Rate 18 16 Blood Pressure 195/88 H 201/89 H Pulse Oximetry 98 99 Intake & Output 11/01/17 11/02/17 11/02/17 18:59 06:59 18:59 Intake Total 1800 / 1800 1100 / 1100 1100 / 1100 Output Total 675 / 675 Balance 1125 / 1125 1100 / 1100 1100 / 1100 Intake: IV 1200 / 1200 1100 / 1100 1100 / 1100 NS Inj 1,000 ML @ 75 mls/hr IV. 1000 / 1000 1000 / 1000 1000 / 1000 CONT .[id number] [facility] Rx#:[id number] Maxipime Inj 1,000 MG In NS Inj 200 / 200 100 / 100 100 / 100 100 ML @ 200 mls/hr IV.SIG Q8H [facility] Rx#:[id number] Oral 600 / 600 Output: Urine 675 / 675 Other: # Voids 1 3 # Bowel Movements 1 - Constitutional no acute distress - Routine HEENT Exam Head: Present: normocephalic Eye: Present: EOMI - Routine Neck Exam Present: supple - Routine Respiratory Exam Present: CTA bilaterally - Routine Cardiovascular Exam Present: RRR - Routine Abdominal Exam Present: soft, normoactive bowel sounds - Routine Extremities Exam Present: edema Results - Lab Results 11/02/17 07:00 11/02/17 07:00 Most recent lab results Calcium 7.8 mg/dL (8.5-10.1) L 11/02/17 07:00 Phosphorus 2.6 mg/dL (2.5-4.9) 11/02/17 07:00 Magnesium 1.8 mg/dL (1.5-2.5) 11/02/17 07:00 Assessment and Plan - Assessment (1) Bilateral lower leg cellulitis Code(s): L03.116 - Cellulitis of left lower limb; L03.115 - Cellulitis of right lower limb Status: Acute (2) Hypertension Code(s): I10 - Essential (primary) hypertension Status: Acute (3) Diabetes Code(s): E11.9 - Type 2 diabetes mellitus without complications Status: Acute - Plan Check UA Urine protein to creatinine ratio Ultrasound of the kidney Monitor BMP Avoid nephrotoxins Control diabetes and high blood pressure Added amlodipine 5 mg ANTWAN and protein electrophoresis ordered
[2017-11-02] MEDS: amLODIPine 5 MG Tablet PO SCH (21:19)
[2017-11-03 04:14] LABS: Bilirubin,Urine Negative (Negative); Clarity,Urine Clear (Clear); Color,Urine Straw (Yellw/Straw); Glucose,Urine (UA) 500 or Greater mg/dL (Negative); Hyaline Casts,Urine 1 /lpf (0-3); Leukocyte Esterase,Urine Negative (Negative); Nitrite,Urine Negative (Negative); Specific Gravity,Urine 1.008 (1.002-1.035)
[2017-11-03 04:18] LABS: Protein/Creatinine Ratio,Urine 3.68 (0.00-0.14)
[2017-11-03] MEDS: Sod Chloride 0.9% Inj 1,000 ML IV.CONT SCH ×2 (04:53→19:20)
[2017-11-03] MEDS: amLODIPine 5 MG Tablet PO SCH (09:34)
[2017-11-03] MEDS: Insulin NovoLOG Aspart Correctional Sugar Inj SQ SCH ×4 (09:34→22:35)
[2017-11-03] MEDS: Furosemide 20 MG Tablet PO SCH (09:34)
[2017-11-03] MEDS: Metoprolol Tartrate 25 MG Tablet PO SCH ×2 (09:34→22:21)
--- NOTE | 2017-11-03 11:13 | P.PNVS ---
Subjective Subjective/Hospital Course: 11/02/2017 This gentleman has a longstanding stigmata of chronic venous stasis and chronic venous insufficiency. At some point in the distant past, he must have had a DVT, which he may not have even known about, which destroyed his valvular system in the veins and started developing stasis. 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 Patient does have cellulitis and possible infection, and this is treated adequately already. At this point, I recommend this to be washed with soap and water daily, dressed with Xeroform over the areas of injuries, and then wrapped firmly with JAMIE, and this should be wrapped at least 3 times a day in order to minimize and eliminate the edema as much as it can be. The patient should also elevate his legs. The patient's creatinine is elevated, therefore, vascular studies cannot be performed at this time. Arterial ultrasound will have no value in this patient considering his anatomy. So, CTA with runoff would be the appropriate study, but right now creatinine is 2.4, and this can always be done on an outpatient basis. Nothing more to add. Patient doing much better today There is a significant decrease in swelling of both legs with application of Jamie bandages and there is also decrease in the rubor and cellulitis Renal function is improving Nothing to add from surgical point and I would continue the current therapy 11/03/2017 Patient doing well at this time Swelling and redness is decreased Greatly appreciate nephrology consult and management of this patient Indeed patient states that he has pneumaturia. If so the first thought is an occult colovesical fistula not previously recognized We will go ahead and do CT of abdomen and pelvis with p.o. contrast only, in face of patient's elevated BUN creatinine. From vascular point nothing to add at this time Objective Vital Signs / I&O: Vital Signs 11/02/17 12:00 11/02/17 16:00 11/02/17 20:00 Temperature 97.5 F L 98.0 F 98.3 F Pulse Rate 69 72 78 Respiratory Rate 18 16 22 Blood Pressure 195/88 H 201/89 H 213/94 H Pulse Oximetry 98 99 98 11/02/17 23:07 11/03/17 04:00 11/03/17 07:58 Temperature 97.9 F 97.4 F L 98.1 F Pulse Rate 69 74 74 Respiratory Rate 22 22 18 Blood Pressure 165/77 H 166/80 H 175/86 H Pulse Oximetry 96 95 98 Intake & Output 11/02/17 11/03/17 11/03/17 18:59 06:59 18:59 Intake Total 1100 / 1100 1615 / 1615 Balance 1100 / 1100 1615 / 1615 Intake: IV 1100 / 1100 1615 / 1615 NS Inj 1,000 ML @ 75 mls/hr IV. 1000 / 1000 1000 / 1000 CONT .[id number] [facility] Rx#:[id number] Maxipime Inj 1,000 MG In NS Inj 100 / 100 100 / 100 100 ML @ 200 mls/hr IV.SIG Q8H [facility] Rx#:[id number] Vancomycin Inj 1,500 MG In NS 515 / 515 Inj 500 ML @ 250 mls/hr IV.SIG ONCE ONE Rx#:[id number] Other: # Voids 3 Laboratory Results - last 24 hr 11/02/17 11/02/17 11/02/17 07:00 12:48 17:24 POC Glucose 165 H 141 H Hemoglobin A1c 8.2 H Total Protein (PEP) Urine Color Urine Clarity Urine pH Ur Specific [place] Urine Protein Urine Glucose (UA) Urine Ketones Urine Occult Blood Urine Nitrate Urine Bilirubin Urine Urobilinogen Ur Leukocyte Esterase Urine RBC Urine WBC Hyaline Casts Micro UA Comment Urine Culture Comments Ur Random Creatinine U Random Total Protein Ur Random Sodium Protein/Creatinin Ratio Complement C3 Complement C4 11/02/17 11/02/17 11/02/17 20:13 20:24 23:12 POC Glucose 181 H 257 H Hemoglobin A1c Total Protein (PEP) 6.5 Urine Color Urine Clarity Urine pH Ur Specific [place] Urine Protein Urine Glucose (UA) Urine Ketones Urine Occult Blood Urine Nitrate Urine Bilirubin Urine Urobilinogen Ur Leukocyte Esterase Urine RBC Urine WBC Hyaline Casts Micro UA Comment Urine Culture Comments Ur Random Creatinine U Random Total Protein Ur Random Sodium Protein/Creatinin Ratio Complement C3 116 Complement C4 23 11/03/17 11/03/17 11/03/17 03:55 03:55 08:15 POC Glucose 191 H Hemoglobin A1c Total Protein (PEP) Urine Color Straw Urine Clarity Clear Urine pH 5.0 Ur Specific [place] 1.008 Urine Protein 500 or greater Urine Glucose (UA) 500 or greater Urine Ketones Negative Urine Occult Blood Moderate H Urine Nitrate Negative Urine Bilirubin Negative Urine Urobilinogen Less than 2 Ur Leukocyte Esterase Negative Urine RBC 1 Urine WBC 1 Hyaline Casts 1 Micro UA Comment Culture not ind Urine Culture Comments Culture not ind Ur Random Creatinine 70 U Random Total Protein 257.8 H Ur Random Sodium 45 Protein/Creatinin Ratio 3.68 H Complement C3 Complement C4 Microbiology 10/31/17 21:00 Aerobic Blood Culture - Preliminary Blood - Peripheral No growth in 3 days Anaerobic Blood Culture - Preliminary No growth in 3 days 10/31/17 21:00 Aerobic Blood Culture - Preliminary Blood - Peripheral No growth in 3 days Anaerobic Blood Culture - Preliminary No growth in 3 days Impressions Abdomen/Bladder Ultrasound 11/02/17 00:00 CONCLUSION: 1. Mildly increased renal echogenicity characteristic of medical renal disease. No acute findings.
[2017-11-03] MEDS: Heparin - SQ 10,000 UNITS/ML Vial SQ SCH ×2 (11:27→22:22)
[2017-11-03 13:03] LABS: Baso # (Auto) 0.1 th/mm3 (0.0-0.2); Baso % (Auto) 1.2 % (0.0-2.0); Eos # (Auto) 0.5 th/mm3 (0.0-0.4); Eos % (Auto) 6.3 % (0.0-4.0); Hematocrit 30.5 % (39.0-51.0); Hemoglobin 10.2 gm/dL (13.0-17.0); Lymph # (Auto) 1.7 th/mm3 (1.0-4.8); Lymph % (Auto) 19.3 % (9.0-44.0); Mean Corpuscular HGB Conc 33.4 % (32.0-36.0); Mean Corpuscular Hemoglobin 29.7 pg (27.0-34.0); Mean Platelet Volume 7.8 fL (7.0-11.0); Mono # (Auto) 0.9 th/mm3 (0.0-0.9); Mono % (Auto) 9.9 % (0.0-8.0); Neut # (Auto) 5.5 th/mm3 (1.8-7.7); Neut % (Auto) 63.3 % (16.0-70.0); Platelet Count 269 th/mm3 (150-450); Red Blood Count 3.43 mil/mm3 (4.50-5.90); Red Cell Distribution Width 14.3 % (11.6-17.2); White Blood Count 8.7 th/mm3 (4.0-11.0)
[2017-11-03 13:08] LABS: Albumin 2.6 g/dL (3.4-5.0); Anion Gap 9 meq/L (5-15); Aspartate Aminotransferase 24 U/L (15-37); Blood Urea Nitrogen 35 mg/dL (7-18); Calcium 8.4 mg/dL (8.5-10.1); Carbon Dioxide 22.3 meq/L (21.0-32.0); Chloride 108 meq/L (98-107); Glomerular Filtration Rate 30 mL/min (>89); Glucose,Random 155 mg/dL (74-106); Potassium 4.3 meq/L (3.5-5.1); Sodium 139 meq/L (136-145)
[2017-11-03 13:09] LABS: Alanine Aminotransferase 19 U/L (12-78)
[2017-11-03 13:11] LABS: Alkaline Phosphatase 103 U/L (45-117); Total Protein 6.6 g/dL (6.4-8.2); Vancomycin,Random 12.8 Comment
[2017-11-03] MEDS ORDERED: Diatrizoate Meglum/Diatrizoate Sod Liq 9 ML UDC PO ONE (14:15)
--- NOTE | 2017-11-03 14:24 | P.PNNP ---
Subjective Interval history: No acute complaints Physical Exam Vital signs: Vital Signs 11/02/17 16:00 11/02/17 20:00 11/02/17 23:07 Temperature 98.0 F 98.3 F 97.9 F Pulse Rate 72 78 69 Respiratory Rate 16 22 22 Blood Pressure 201/89 H 213/94 H 165/77 H Pulse Oximetry 99 98 96 11/03/17 04:00 11/03/17 07:58 11/03/17 12:00 Temperature 97.4 F L 98.1 F 97.5 F L Pulse Rate 74 74 74 Respiratory Rate 22 18 18 Blood Pressure 166/80 H 175/86 H 137/89 Pulse Oximetry 95 98 99 Intake & Output 11/02/17 11/03/17 11/03/17 18:59 06:59 18:59 Intake Total 1100 / 1100 1615 / 1615 Balance 1100 / 1100 1615 / 1615 Intake: IV 1100 / 1100 1615 / 1615 NS Inj 1,000 ML @ 75 mls/hr IV. 1000 / 1000 1000 / 1000 CONT .[id number] [facility] Rx#:[id number] Maxipime Inj 1,000 MG In NS Inj 100 / 100 100 / 100 100 ML @ 200 mls/hr IV.SIG Q8H [facility] Rx#:[id number] Vancomycin Inj 1,500 MG In NS 515 / 515 Inj 500 ML @ 250 mls/hr IV.SIG ONCE ONE Rx#:[id number] Other: # Voids 3 - Constitutional no acute distress - Routine HEENT Exam Head: Present: normocephalic Eye: Present: EOMI ENT: Present: mucous membranes moist - Routine Neck Exam Present: supple - Routine Respiratory Exam Present: CTA bilaterally - Routine Cardiovascular Exam Present: RRR - Routine Abdominal Exam Present: soft - Routine Extremities Exam Comments: edema - Routine Skin Exam Present: intact - Routine Neurological Exam Present: alert, oriented X3 - Detailed Neurological Exam: Coma Scale Eye Opening: Spontaneous - Routine Psychiatric Exam Present: normal affect Assessment and Plan - Assessment (1) Bilateral lower leg cellulitis Code(s): L03.116 - Cellulitis of left lower limb; L03.115 - Cellulitis of right lower limb Status: Acute (2) Hypertension Code(s): I10 - Essential (primary) hypertension Status: Acute (3) Diabetes Code(s): E11.9 - Type 2 diabetes mellitus without complications Status: Acute - Plan Apparent SHARATH on CKD Renal ultrasound with increased echogenicity. 3grams/day proteinuria Complements wnl SPEP, ANTWAN and protein electrophoresis pending. 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 May be near his new baseline status. Continues on lasix 20mg PO daily Avoid nephrotoxins Control diabetes and high blood pressure BP better today. Ok for D/C from renal standpoint with follow-up with Dr. Childs - if otherwise medically stable
--- NOTE | 2017-11-03 15:56 | P.DS ---
Date of admission: 10/31/17 22:09 Primary care physician: PROVIDER NON STAFF Brief History from admission: 67 y/o male with a history of diabetes and hyperlipidemia presented to the ED with complaints of bilateral lower extremity swelling. Patient does follow with outpatient wound care and states did have dressings at one point on but they took it off. He followed up with Dr. Lee cali to see if it was a vascular issue and Dr. Howard recommended he come to the ED for cellulitis and IV antibiotics. Patient has been having leg swelling weeks. He denies any he does complain of constant, aching pain, 6/10, to his bilateral lower extremities worse with movement and walking, better with rest. DS: Medications - Discharge Medications Prescriptions: Lactobacillus acidophilus 500 mmu cells PO TID #30 cap sulfamethoxazole-trimethoprim [Bactrim DS] 1 tab PO BID #14 tab DS: Summary Hospital Course: Mr. Coburn is a 67-year-old male. He was admitted secondary to bilateral lower extremity cellulitis. This was treated with cefepime. Another finding at time of admit this patient had acute kidney injury. Creatinine levels approximately 2.8. His previous baseline had been 1.5 prior to this as well as 1.0 prior to that. Renal workup was provided and some signs of chronic disease at present. Patient has a downward trend in his creatinine through time and today is determined to be medically stable for discharge home. He has improvement in his cellulitis on antibiotic treatments. He will continue on Bactrim for 7 more days with probiotics. Medically stable and cleared for discharge home today. - Time Spent with Patient Total time spent providing and/or coordinating discharge services: Less than 30 minutes - Quality: VTE Deep Vein Thrombosis/Pulmonary Embolism Present on Admission: No Exam Vital signs: Vital Signs 11/02/17 16:00 11/02/17 20:00 11/02/17 23:07 Temperature 98.0 F 98.3 F 97.9 F Pulse Rate 72 78 69 Respiratory Rate 16 22 22 Blood Pressure 201/89 H 213/94 H 165/77 H Pulse Oximetry 99 98 96 11/03/17 04:00 11/03/17 07:58 11/03/17 12:00 Temperature 97.4 F L 98.1 F 97.5 F L Pulse Rate 74 74 74 Respiratory Rate 18 18 Blood Pressure 166/80 H 175/86 H 137/89 Pulse Oximetry 95 98 99 Intake & Output 11/02/17 11/03/17 11/03/17 18:59 06:59 18:59 Intake Total 1100 / 1100 1615 / 1615 Balance 1100 / 1100 1615 / 1615 Intake: IV 1100 / 1100 1615 / 1615 NS Inj 1,000 ML @ 75 mls/hr IV. 1000 / 1000 1000 / 1000 CONT .[id number] [facility] Rx#:[id number] Maxipime Inj 1,000 MG In NS Inj 100 / 100 100 / 100 100 ML @ 200 mls/hr IV.SIG Q8H [facility] Rx#:[id number] Vancomycin Inj 1,500 MG In NS 515 / 515 Inj 500 ML @ 250 mls/hr IV.SIG ONCE ONE Rx#:[id number] Other: # Voids 3 Results Procedures completed during hospitalization: None Labs on day of discharge: Labs from last 24 hours 11/03/17 11/03/17 11/03/17 12:11 11:56 11:56 WBC RBC Hgb Hct MCV MCH MCHC RDW Plt Count MPV Neut % (Auto) Lymph % (Auto) [place] % (Auto) Eos % (Auto) Baso % (Auto) Neut # (Auto) Lymph # (Auto) [place] # (Auto) Eos # (Auto) Baso # (Auto) WBC Differential Differential Comment Sodium 139 Potassium 4.3 Chloride 108 H Carbon Dioxide 22.3 Anion Gap 9 BUN 35 H Creatinine 2.19 H Estimated GFR 30 L POC Glucose 208 H Random Glucose 155 H Hemoglobin A1c Pending Calcium 8.4 L Total Bilirubin 0.3 AST 24 ALT 19 Alkaline Phosphatase 103 Total Protein 6.6 D Total Protein (PEP) Albumin 2.6 L Albumin (PEP) Albumin/Globulin Ratio Rupna-4-Olkzwltrl Ulosp-1-Vnkeplijj Beta Globulins Gamma Globulins PEP Pathologist Comment Urine Color Urine Clarity Urine pH Ur Specific [place] Urine Protein Urine Glucose (UA) Urine Ketones Urine Occult Blood Urine Nitrate Urine Bilirubin Urine Urobilinogen Ur Leukocyte Esterase Urine RBC Urine WBC Hyaline Casts Micro UA Comment Urine Culture Comments Ur Random Creatinine U Random Total Protein Ur Random Sodium Protein/Creatinin Ratio Random Vancomycin 12.8 ANTWAN Screen Complement C3 Complement C4 11/03/17 11/03/17 11/03/17 11:56 08:15 03:55 WBC 8.7 RBC 3.43 L Hgb 10.2 L Hct 30.5 L MCV 89.0 MCH 29.7 MCHC 33.4 RDW 14.3 Plt Count 269 MPV 7.8 Neut % (Auto) 63.3 Lymph % (Auto) 19.3 [place] % (Auto) 9.9 H Eos % (Auto) 6.3 H Baso % (Auto) 1.2 Neut # (Auto) 5.5 Lymph # (Auto) 1.7 [place] # (Auto) 0.9 Eos # (Auto) 0.5 H Baso # (Auto) 0.1 WBC Differential . Differential Comment Auto diff final Sodium Potassium Chloride Carbon Dioxide Anion Gap BUN Creatinine Estimated GFR POC Glucose 191 H Random Glucose Hemoglobin A1c Calcium Total Bilirubin AST ALT Alkaline Phosphatase Total Protein Total Protein (PEP) Albumin Albumin (PEP) Albumin/Globulin Ratio Avlwi-4-Ytmexixch Iqhdb-6-Cznlmnkdn Beta Globulins Gamma Globulins PEP Pathologist Comment Urine Color Straw Urine Clarity Clear Urine pH 5.0 Ur Specific [place] 1.008 Urine Protein 500 or greater Urine Glucose (UA) 500 or greater Urine Ketones Negative Urine Occult Blood Moderate H Urine Nitrate Negative Urine Bilirubin Negative Urine Urobilinogen Less than 2 Ur Leukocyte Esterase Negative Urine RBC 1 Urine WBC 1 Hyaline Casts 1 Micro UA Comment Culture not ind Urine Culture Comments Culture not ind Ur Random Creatinine U Random Total Protein Ur Random Sodium Protein/Creatinin Ratio Random Vancomycin ANTWAN Screen Complement C3 Complement C4 11/03/17 11/02/17 11/02/17 03:55 23:12 20:24 WBC RBC Hgb Hct MCV MCH MCHC RDW Plt Count MPV Neut % (Auto) Lymph % (Auto) [place] % (Auto) Eos % (Auto) Baso % (Auto) Neut # (Auto) Lymph # (Auto) [place] # (Auto) Eos # (Auto) Baso # (Auto) WBC Differential Differential Comment Sodium Potassium Chloride Carbon Dioxide Anion Gap BUN Creatinine Estimated GFR POC Glucose 257 H 181 H Random Glucose Hemoglobin A1c Calcium Total Bilirubin AST ALT Alkaline Phosphatase Total Protein Total Protein (PEP) Albumin Albumin (PEP) Albumin/Globulin Ratio Znywh-7-Aayfdkuvt Hhbef-0-Dbswwgyat Beta Globulins Gamma Globulins PEP Pathologist Comment Urine Color Urine Clarity Urine pH Ur Specific [place] Urine Protein Urine Glucose (UA) Urine Ketones Urine Occult Blood Urine Nitrate Urine Bilirubin Urine Urobilinogen Ur Leukocyte Esterase Urine RBC Urine WBC Hyaline Casts Micro UA Comment Urine Culture Comments Ur Random Creatinine 70 U Random Total Protein 257.8 H Ur Random Sodium 45 Protein/Creatinin Ratio 3.68 H Random Vancomycin ANTWAN Screen Complement C3 Complement C4 11/02/17 11/02/17 11/02/17 20:13 20:13 17:24 WBC RBC Hgb Hct MCV MCH MCHC RDW Plt Count MPV Neut % (Auto) Lymph % (Auto) [place] % (Auto) Eos % (Auto) Baso % (Auto) Neut # (Auto) Lymph # (Auto) [place] # (Auto) Eos # (Auto) Baso # (Auto) WBC Differential Differential Comment Sodium Potassium Chloride Carbon Dioxide Anion Gap BUN Creatinine Estimated GFR POC Glucose 141 H Random Glucose Hemoglobin A1c Calcium Total Bilirubin AST ALT Alkaline Phosphatase Total Protein Total Protein (PEP) 6.5 Albumin Albumin (PEP) Pending Albumin/Globulin Ratio Pending Qnxth-4-Bojaejgps Pending Awali-2-Hdnxslvlq Pending Beta Globulins Pending Gamma Globulins Pending PEP Pathologist Comment Pending Urine Color Urine Clarity Urine pH Ur Specific [place] Urine Protein Urine Glucose (UA) Urine Ketones Urine Occult Blood Urine Nitrate Urine Bilirubin Urine Urobilinogen Ur Leukocyte Esterase Urine RBC Urine WBC Hyaline Casts Micro UA Comment Urine Culture Comments Ur Random Creatinine U Random Total Protein Ur Random Sodium Protein/Creatinin Ratio Random Vancomycin ANTWAN Screen Pending Complement C3 116 Complement C4 23 11/02/17 07:00 WBC RBC Hgb Hct MCV MCH MCHC RDW Plt Count MPV Neut % (Auto) Lymph % (Auto) [place] % (Auto) Eos % (Auto) Baso % (Auto) Neut # (Auto) Lymph # (Auto) [place] # (Auto) Eos # (Auto) Baso # (Auto) WBC Differential Differential Comment Sodium Potassium Chloride Carbon Dioxide Anion Gap BUN Creatinine Estimated GFR POC Glucose Random Glucose Hemoglobin A1c 8.2 H Calcium Total Bilirubin AST ALT Alkaline Phosphatase Total Protein Total Protein (PEP) Albumin Albumin (PEP) Albumin/Globulin Ratio Iyyda-9-Dxbylhuct Mklyu-1-Onsmiykco Beta Globulins Gamma Globulins PEP Pathologist Comment Urine Color Urine Clarity Urine pH Ur Specific [place] Urine Protein Urine Glucose (UA) Urine Ketones Urine Occult Blood Urine Nitrate Urine Bilirubin Urine Urobilinogen Ur Leukocyte Esterase Urine RBC Urine WBC Hyaline Casts Micro UA Comment Urine Culture Comments Ur Random Creatinine U Random Total Protein Ur Random Sodium Protein/Creatinin Ratio Random Vancomycin ANTWAN Screen Complement C3 Complement C4 Preliminary micro results at discharge 10/31/17 21:00 Aerobic Blood Culture - Preliminary Blood - Peripheral No growth in 3 days Anaerobic Blood Culture - Preliminary No growth in 3 days 10/31/17 21:00 Aerobic Blood Culture - Preliminary Blood - Peripheral No growth in 3 days Anaerobic Blood Culture - Preliminary No growth in 3 days - Impressions ITS Impressions Abdomen/Bladder Ultrasound 11/02/17 00:00 CONCLUSION: 1. Mildly increased renal echogenicity characteristic of medical renal disease. No acute findings. Discharge Plan - Discharge Disposition Patient Disposition: Discharge Home - Discharge Condition Condition: Stable - Discharge Details Anticipated Discharge Date: 11/03/17 Discharge Comment: July discharge after CT scan completed. - Physicians Team Primary Care Provider: NON STAFF,PROVIDER Attending Provider: Canelo Kendrick Other Providers: Jannette Bhatia ; Jameson Rodriguez MD ; Reese Childs MD
[2017-11-03] MEDS ORDERED: Vancomycin Inj 1,500 MG in Sodium Chlor 0.9% Inj 500 ML IV.SIG ONE (16:00)
--- NOTE | 2017-11-03 19:16 | CT ---
EXAM DATE: 11/03/2017 6:56 PM EDT AGE/SEX: 67 years / Male INDICATIONS: Pneumaturia possible colovesical fistula CLINICAL DATA: This is the patient's initial encounter. Patient reports that signs and symptoms have been present for 1 day and indicates a pain score of 4/10. MEDICAL/SURGICAL HISTORY: Diabetes. Bilateral leg celulitis None. RADIATION DOSE: 16.17 CTDI (mGy) COMPARISON: No prior exams available for comparison. TECHNIQUE: Multiple contiguous axial images were obtained through the abdomen. Images were obtained using multiple row detector helical technique. Using automated exposure control and adjustment of the mA and/or kV according to patient size, radiation dose was kept as low as reasonably achievable to o btain optimal diagnostic quality images. DICOM format image data is available electronically for rev iew and comparison. FINDINGS: Lower Lungs: The visualized lower lungs are clear. Liver: The liver has a homogeneous density without space-occupying lesion. There is no dilation of th e biliary tree. 4 mm faint calcification in the neck of the gallbladder. Spleen: Homogeneous density without enlargement. Pancreas: Unremarkable without mass or calcification. Kidneys: Normal in size and shape. No evidence of mass or hydronephrosis. Adrenal Glands: Unremarkable. Aorta: The aorta and proximal iliac vessels are grossly unremarkable without aneurysmal dilation. Bowel/Mesentery: No dilated loops of small or large bowel. Oral contrast passes through to the splen ic flexure. No evidence of free fluid. Abdominal Wall: Intact. Retroperitoneum: No evidence of adenopathy in the retrocrural, para-aortic, or deep pelvic regions. Bladder: Contours are smooth. No gas in the lumen. Reproductive Organs: No abnormal masses or calcifications seen. Inguinal: The inguinal region is unremarkable without evidence of adenopathy. Bony Structures: Unremarkable. CONCLUSION: 1. Faint calcified gallstone. 2. Otherwise negative examination. No evidence of gas within the urinary bladder lumen. Electronically signed by: Ian Starks MD 11/03/2017 7:15 PM EDT
[2017-11-03 20:01] LABS: Hepatitis A IgM Antibody Nonreactive (Nonreactive); Hepatitits B Surface Antigen Nonreactive (Nonreactive)
[2017-11-03] MEDS: Gabapentin 100 MG Capsule PO PRN (22:21)
[2017-11-04 08:10] LABS: Baso # (Auto) 0.1 th/mm3 (0.0-0.2); Baso % (Auto) 1.3 % (0.0-2.0); Eos # (Auto) 0.6 th/mm3 (0.0-0.4); Eos % (Auto) 6.9 % (0.0-4.0); Hematocrit 29.6 % (39.0-51.0); Lymph % (Auto) 24.1 % (9.0-44.0); Mean Corpuscular HGB Conc 33.9 % (32.0-36.0); Mean Corpuscular Volume 88.4 fL (80.0-100.0); Mean Platelet Volume 8.1 fL (7.0-11.0); Mono # (Auto) 1.1 th/mm3 (0.0-0.9); Mono % (Auto) 13.4 % (0.0-8.0); Neut # (Auto) 4.4 th/mm3 (1.8-7.7); Neut % (Auto) 54.3 % (16.0-70.0); Platelet Count 254 th/mm3 (150-450); Red Blood Count 3.34 mil/mm3 (4.50-5.90); Red Cell Distribution Width 14.3 % (11.6-17.2); White Blood Count 8.1 th/mm3 (4.0-11.0)
[2017-11-04 08:22] LABS: Alanine Aminotransferase 21 U/L (12-78); Albumin 2.5 g/dL (3.4-5.0); Anion Gap 5 meq/L (5-15); Blood Urea Nitrogen 36 mg/dL (7-18); Calcium 8.3 mg/dL (8.5-10.1); Carbon Dioxide 23.6 meq/L (21.0-32.0); Chloride 108 meq/L (98-107); Glomerular Filtration Rate 31 mL/min (>89); Glucose,Random 153 mg/dL (74-106); Potassium 4.6 meq/L (3.5-5.1); Sodium 137 meq/L (136-145)
[2017-11-04 08:26] LABS: Alkaline Phosphatase 104 U/L (45-117); Aspartate Aminotransferase 24 U/L (15-37); Total Protein 6.7 g/dL (6.4-8.2); Vancomycin,Random 21.7 Comment
[2017-11-04] MEDS: Sod Chloride 0.9% Inj 1,000 ML IV.CONT SCH (08:29)
[2017-11-04] MEDS: Furosemide 20 MG Tablet PO SCH (08:32)
[2017-11-04] MEDS: amLODIPine 5 MG Tablet PO SCH (08:32)
[2017-11-04] MEDS: Metoprolol Tartrate 25 MG Tablet PO SCH (08:32)
[2017-11-04] MEDS: Insulin NovoLOG Aspart Correctional Sugar Inj SQ SCH (08:33)
--- NOTE | 2017-11-04 10:08 | P.PNIM ---
Subjective Interval history: No overnight events, no fever or chills. Blood pressure is still elevated but denies any chest pain, headache or shortness of breath. No dysuria, frequency or urgency. Bilateral lower extremity swelling better. Physical Exam Vital signs: Vital Signs 11/03/17 12:00 11/03/17 16:00 11/03/17 20:00 Temperature 97.5 F L 97.8 F 97.5 F L Pulse Rate 74 82 83 Respiratory Rate 18 18 18 Blood Pressure 137/89 187/86 H 179/78 H Pulse Oximetry 99 98 98 11/03/17 22:07 11/03/17 23:53 11/04/17 00:07 Temperature 97.9 F Pulse Rate 75 Respiratory Rate 18 Blood Pressure 197/91 H 182/83 H 147/69 H Pulse Oximetry 98 11/04/17 03:36 11/04/17 04:00 11/04/17 08:00 Temperature 97.8 F 97.6 F Pulse Rate 70 76 Respiratory Rate 20 19 Blood Pressure 159/71 H 200/85 H Pulse Oximetry 20 L 98 Intake & Output 11/03/17 11/04/17 11/04/17 18:59 06:59 18:59 Intake Total 715 / 715 1100 / 1100 100 / 100 Balance 715 / 715 1100 / 1100 100 / 100 Intake: IV 715 / 715 1100 / 1100 100 / 100 NS Inj 1,000 ML @ 75 mls/hr IV. 1000 / 1000 CONT .[id number] [facility] Rx#:[id number] Maxipime Inj 1,000 MG In NS Inj 200 / 200 100 / 100 100 / 100 100 ML @ 200 mls/hr IV.SIG Q8H [facility] Rx#:[id number] Vancomycin Inj 1,500 MG In NS 515 / 515 Inj 500 ML @ 250 mls/hr IV.SIG ONCE ONE Rx#:[id number] Narrative: GENERAL: NAD, A&Ox3 HEAD: Normocephalic. NECK: Supple, trachea midline. No lymphadenopathy. EYES: No scleral icterus. No injection or drainage. CARDIOVASCULAR: Regular rate and rhythm without murmurs, gallops, or rubs. RESPIRATORY: Breath sounds equal bilaterally. No accessory muscle use. GASTROINTESTINAL: Abdomen soft, non-tender, nondistended. SKIN: Warm and dry. Bilateral distal lower extremity with mild erythema, no induration, mild swelling, +1 edema. NEURO: No focal neurological deficits. Results - Labs CBC & Chem 7: 11/04/17 06:56 11/04/17 06:56 Laboratory Results - last 24 hr 11/03/17 11/03/17 11/03/17 11:56 11:56 12:11 WBC 8.7 RBC 3.43 L Hgb 10.2 L Hct 30.5 L MCV 89.0 MCH 29.7 MCHC 33.4 RDW 14.3 Plt Count 269 MPV 7.8 Neut % (Auto) 63.3 Lymph % (Auto) 19.3 [place] % (Auto) 9.9 H Eos % (Auto) 6.3 H Baso % (Auto) 1.2 Neut # (Auto) 5.5 Lymph # (Auto) 1.7 [place] # (Auto) 0.9 Eos # (Auto) 0.5 H Baso # (Auto) 0.1 WBC Differential . Differential Comment Auto diff final Sodium 139 Potassium 4.3 Chloride 108 H Carbon Dioxide 22.3 Anion Gap 9 BUN 35 H Creatinine 2.19 H Estimated GFR 30 L POC Glucose 208 H Random Glucose 155 H Calcium 8.4 L Total Bilirubin 0.3 AST 24 ALT 19 Alkaline Phosphatase 103 Total Protein 6.6 D Albumin 2.6 L Random Vancomycin 12.8 Hepatitis A IgM Ab Hep Bs Antigen Hep B Core IgM Ab Hep C IgG Ab HIV 1&2 Ab/P24 Ag 4thGn 11/03/17 11/03/17 11/03/17 17:27 17:50 22:33 WBC RBC Hgb Hct MCV MCH MCHC RDW Plt Count MPV Neut % (Auto) Lymph % (Auto) [place] % (Auto) Eos % (Auto) Baso % (Auto) Neut # (Auto) Lymph # (Auto) [place] # (Auto) Eos # (Auto) Baso # (Auto) WBC Differential Differential Comment Sodium Potassium Chloride Carbon Dioxide Anion Gap BUN Creatinine Estimated GFR POC Glucose 91 244 H Random Glucose Calcium Total Bilirubin AST ALT Alkaline Phosphatase Total Protein Albumin Random Vancomycin Hepatitis A IgM Ab Nonreactive Hep Bs Antigen Nonreactive Hep B Core IgM Ab Nonreactive Hep C IgG Ab Nonreactive HIV 1&2 Ab/P24 Ag 4thGn Nonreactive 11/04/17 11/04/17 11/04/17 06:56 06:56 07:54 WBC 8.1 RBC 3.34 L Hgb 10.0 L Hct 29.6 L MCV 88.4 MCH 30.0 MCHC 33.9 RDW 14.3 Plt Count 254 MPV 8.1 Neut % (Auto) 54.3 Lymph % (Auto) 24.1 [place] % (Auto) 13.4 H Eos % (Auto) 6.9 H Baso % (Auto) 1.3 Neut # (Auto) 4.4 Lymph # (Auto) 2.0 [place] # (Auto) 1.1 H Eos # (Auto) 0.6 H Baso # (Auto) 0.1 WBC Differential . Differential Comment Auto diff final Sodium 137 Potassium 4.6 Chloride 108 H Carbon Dioxide 23.6 Anion Gap 5 BUN 36 H Creatinine 2.15 H Estimated GFR 31 L POC Glucose 189 H Random Glucose 153 H Calcium 8.3 L Total Bilirubin 0.3 AST 24 ALT 21 Alkaline Phosphatase 104 Total Protein 6.7 Albumin 2.5 L Random Vancomycin 21.7 Hepatitis A IgM Ab Hep Bs Antigen Hep B Core IgM Ab Hep C IgG Ab HIV 1&2 Ab/P24 Ag 4thGn Microbiology 10/31/17 21:00 Blood - Peripheral Aerobic Blood Culture - Preliminary No growth in 3 days 10/31/17 21:00 Blood - Peripheral Anaerobic Blood Culture - Preliminary No growth in 3 days 10/31/17 21:00 Blood - Peripheral Aerobic Blood Culture - Preliminary No growth in 3 days 10/31/17 21:00 Blood - Peripheral Anaerobic Blood Culture - Preliminary No growth in 3 days - Imaging Impressions Abdomen/Pelvis CT 11/03/17 00:00 CONCLUSION: 1. Faint calcified gallstone. 2. Otherwise negative examination. No evidence of gas within the urinary bladder lumen. - Procedures None Assessment and Plan - Plan 67-year-old male admitted secondary to bilateral lower extremity cellulitis with acute kidney injury Cellulitis, bilateral Continue antibiotics, switch to Bactrim for discharge. Cleared by vascular surgery. CT scan of the abdomen did not show any colovesical fistula. Discussed with Dr. Howard on discharge, agreed with discharge home. Acute kidney injury Continues to improve, creatinine is 2.15, cleared by nephrology for discharge. Continue Lasix. Renal function likely at baseline per nephrology. If remains stable, may start on BERRY inhibitors. Hypertension-continue metoprolol, increase Norvasc, blood pressure getting better. May need to start BERRY inhibitors as outpatient. Diabetes mellitus type 2 Follow blood sugars Insulin sliding scale Diabetic diet Hyperlipidemia Continue present treatment Follow as an outpatient DVT prophylaxis Heparin
[2017-11-04] MEDS: Heparin - SQ 10,000 UNITS/ML Vial SQ SCH (12:17)
[2017-11-04 14:15] LABS: Hemoglobin A1c 7.9 % (4.3-6.0)
[2017-11-05 14:37] LABS: Anti-Nuclear Antibody Screen Pos (Neg)
[2017-11-07 16:43] LABS: Anti-Nuclear Antibody Pattern Speckled
== END 2017-11-04 14:04 | disposition home or self-care (01) ==
LOC: NEPC 19:06 → NEDA 22:09 → NEPHCDU 11-01 00:57 → N07 11-03 20:16
PROVIDERS: ADMIT Hospitalist; ATTEND Hospitalist

== ENCOUNTER 2018-05-10 12:12 | Inpatient (IN) ==
[2018-05-10] MEDS ORDERED: Sod Chloride 0.9% Inj 1,000 ML IV.CONT SCH ×2 (12:30→13:30)
[2018-05-10 12:39] LABS: Baso # (Auto) 0.1 th/mm3 (0.0-0.2); Baso % (Auto) 0.7 % (0.0-2.0); Eos # (Auto) 0.4 th/mm3 (0.0-0.4); Eos % (Auto) 3.7 % (0.0-4.0); Hematocrit 38.6 % (39.0-51.0); Hemoglobin 13.1 gm/dL (13.0-17.0); Lymph % (Auto) 19.2 % (9.0-44.0); Mean Corpuscular HGB Conc 33.8 % (32.0-36.0); Mean Corpuscular Hemoglobin 29.8 pg (27.0-34.0); Mean Platelet Volume 8.5 fL (7.0-11.0); Mono % (Auto) 9.8 % (0.0-8.0); Neut # (Auto) 6.9 th/mm3 (1.8-7.7); Neut % (Auto) 66.6 % (16.0-70.0); Platelet Count 349 th/mm3 (150-450); Red Blood Count 4.39 mil/mm3 (4.50-5.90); Red Cell Distribution Width 12.3 % (11.6-17.2); White Blood Count 10.4 th/mm3 (4.0-11.0)
[2018-05-10 12:41] LABS: Potassium 4.4 meq/L (3.5-5.1)
--- NOTE | 2018-05-10 12:41 | CT ---
EXAM DATE: 05/10/2018 12:36 PM EST AGE/SEX: 68 years / Male INDICATIONS: Stroke alert. Slurred speech. Left facial droop. CLINICAL DATA: This is the patient's initial encounter. Patient reports that signs and symptoms have been present for 1 day and indicates a pain score of 0/10. MEDICAL/SURGICAL HISTORY: None. None. RADIATION DOSE: 56.54 CTDI (mGy) COMPARISON: [facility], MRI BRAIN W & W/O CONTRAST, 09/16/2014. . TECHNIQUE: CT of the head without contrast. Using automated exposure control and adjustment of the mA and/or kV according to patient size, radiation dose was kept as low as reasonably achievable to ob tain optimal diagnostic quality images. DICOM format image data is available electronically for revi ew and comparison. FINDINGS: Cerebrum: The ventricles are normal for age. No evidence of midline shift, mass lesion, hemorrhage or acute infarction. No extraaxial fluid collections are seen. Posterior Fossa: The cerebellum and brainstem are intact. The 4th ventricle is midline. The cerebe llopontine angle is unremarkable. Extracranial: The visualized portion of the orbits is intact. Skull: The calvaria is intact. No evidence of skull fracture. CONCLUSION: 1. Negative for acute process Report was called by Dr. Degroot . Electronically signed by: Dudley Degroot MD Board Certified Radiologist 05/10/2018 12:39 PM EST
--- NOTE | 2018-05-10 12:42 | ED ---
HPI General Chief Complaint: Neuro Symptoms/Deficit Stated Complaint: neuro symptoms Time Seen by Provider: 05/10/18 12:20 History of Present Illness HPI Narrative: This is a 68-year-old male with history of hypertension, dyslipidemia, diabetes mellitus//Insulin-dependent, who presents to the ED with left-sided facial droop, dysarthria, left upper and left lower extremity weakness. Patient states that he noticed the symptoms about 1 AM and said they were much more mild than they are now. He states he went to bed and when he woke up 0 worse. He denies any headache. He denies any blurry vision. He does report that he has had a previous stroke/TIA about a year and a half ago. There are no other complaints time of my examination. Related Data Home Medications Medication Instructions Recorded Confirmed aspirin [Aspirin Low Dose] 81 mg PO DAILY 10/31/17 05/10/18 gabapentin 800 mg PO DAILY 10/31/17 05/10/18 hydrocodone-acetaminophen 1 tab PO Q6H PRN 05/10/18 05/10/18 insulin glargine [Lantus U-100 30 unit SUBCUT BID 05/10/18 05/10/18 Insulin] Allergies Allergy/AdvReac Type Severity Reaction Status Date / Time penicillin G Allergy Severe ANAPHYLACTIC Verified 05/10/18 13:10 REACTION Review of Systems ROS: all other systems reviewed are negative Constitutional Reports system reviewed and no additional complaints, except as docu Eyes Reports system reviewed and no additional complaints, except as docu ENT Reports system reviewed and no additional complaints, except as docu Cardiovascular Reports system reviewed and no additional complaints, except as docu Respiratory Reports system reviewed and no additional complaints, except as docu Gastrointestinal Reports system reviewed and no additional complaints, except as docu Genitourinary Reports system reviewed and no additional complaints, except as docu Musculoskeletal Reports system reviewed and no additional complaints, except as docu Integumentary/Breasts Reports system reviewed and no additional complaints, except as docu Neurologic Reports system reviewed and no additional complaints, except as docu and Reports as per HPI PENDING SALE TO [facility] Medical History Medical History TIA (transient ischemic attack) (Acute) Diabetes (Acute) HLD (hyperlipidemia) (Acute) Surgical history unknown (Acute) Social History Social History Substance History: No History of Abuse Second Hand Smoke Exposure: No Smoking Status: Never smoker Tobacco Type: Cigarettes How Often Do You Have a Drink Containing Alcohol: Monthly or less Exam Narrative Exam Narrative: GENERAL: Well-developed well-nourished male in no acute respiratory distress. SKIN: Focused skin assessment warm/dry. HEAD: Atraumatic. Normocephalic. EYES: Pupils equal and round extraocular muscles appeared intact. No scleral icterus. No injection or drainage. ENT: No nasal bleeding or discharge. Mucous membranes pink and moist. NECK: Trachea midline. Supple. CARDIOVASCULAR: Regular rate and rhythm. No murmur appreciated. RESPIRATORY: No accessory muscle use. Clear to auscultation. Breath sounds equal bilaterally. GASTROINTESTINAL: Abdomen soft, non-tender, nondistended. Hepatic and splenic margins not palpable. MUSCULOSKELETAL: No obvious deformities. No clubbing. No cyanosis. No edema. NEUROLOGICAL: Awake and alert. Obvious left-sided facial droop. Patient had associated dysarthria. He had 4 out of 5 left upper extremity and left lower extremity strength. 5 out of 5 right upper and right lower extremity. Questionable left-sided visual field deficits. Dr. Hutchinson, on-call neurologist was at the bedside and estimated his stroke scale to be 7. Course Initial Documented Vital Signs Pulse Rate 93 H 05/10/18 12:17 Pulse Oximetry 98 05/10/18 12:17 Last Documented Vital Signs Pulse Rate 80 05/10/18 12:59 Respiratory Rate 18 05/10/18 12:50 Blood Pressure 211/106 H 05/10/18 12:50 Pulse Oximetry 100 05/10/18 12:59 Critical Care Time Critical Care Time: Yes Total Critical Care Time: 60 Attestation: Aggregate critical care time was 60 minutes. Time to perform other separately billable procedures was not included in the critical care time. My time did not include minutes spent treating any other patients simultaneously or on activities that did not directly contribute to the patient's treatment. The services I provided to this patient were to treat and/or prevent clinically significant deterioration that could result in: I provided critical care services requiring my management, as noted below: Chart data review, documentation time, medication orders and management, vital sign assessments/reviewing monitor data, ordering and reviewing lab tests, ordering and interpreting/reviewing x-rays and diagnostic studies, care of the patient and discussion of the patient with the admitting physicians. NIH Stroke Scale NIH Stroke Scale Level of Consciousness: 0-Alert Orientation Questions: 0-Answers both correct Responds to Commands: 0-Both tasks correct Gaze Eye Movement: 0-Horizontal movement WNL Visual Pace: 1-Partial hemianopia Facial Movement: 2-Partial facial palsy Motor Functions Arm LEFT: 0-No drift Motor Functions Arm RIGHT: 0-No drift Motor Functions Leg LEFT: 0-No drift Motor Functions Leg RIGHT: 0-No drift Limb Ataxia: 1-Ataxia in one limb Sensory Loss: 1-Mild sensory loss Best Language: 1-Mild aphasia Articulation: 1-Mild dysarthia Extinction or Inattention Sensory: 0-Absent Total: 7 Medical Decision Making MDM Narrative Medical decision making narrative: This is a 68-year-old male with history of hypertension, diabetes mellitus, dyslipidemia, presents with facial droop and left upper and lower extremity weakness. Patient was called a stroke alert as he was on the 24-hour window. Dr. Paulo Hutchinson came down and saw the patient before he went to CT. The patient's CT scan was negative for acute process. CT a was also negative. The patient has nothing at this point it would be possible for interventional radiology. He was started on Plavix 150 mg with recommendations for 75 mg daily. Patient's creatinine was 3.8. Recommendation was that we hydrate him. He is been started on 1 L IV bolus. He will need further hydration during his hospitalization. Case was discussed with Dr. Robledo he will be the admitting physician. He will be admitted to the [facility] care area. Medical Screen Exam Complete: Yes Emergency Medical Condition: Yes Differential Diagnosis Differential Diagnosis: Acute embolic stroke versus acute hemorrhagic stroke versus TIA versus metabolic derangement Lab Data Result diagrams: 05/10/18 12:20 05/10/18 12:20 Lab Results 05/10/18 05/10/18 05/10/18 Range/Units 12:20 12:20 12:20 CBC w Diff Auto diff final WBC 10.4 (4.0-11.0) th/mm3 RBC 4.39 L (4.50-5.90) mil/mm3 Hgb 13.1 (13.0-17.0) gm/dL Hct 38.6 L (39.0-51.0) % MCV 88.0 (80.0-100.0) fL MCH 29.8 (27.0-34.0) pg MCHC 33.8 (32.0-36.0) % RDW 12.3 (11.6-17.2) % Plt Count 349 (150-450) th/mm3 MPV 8.5 (7.0-11.0) fL Neut % (Auto) 66.6 (16.0-70.0) % Lymph % (Auto) 19.2 (9.0-44.0) % Cataño % (Auto) 9.8 H (0.0-8.0) % Eos % (Auto) 3.7 (0.0-4.0) % Baso % (Auto) 0.7 (0.0-2.0) % Neut # (Auto) 6.9 (1.8-7.7) th/mm3 Lymph # (Auto) 2.0 (1.0-4.8) th/mm3 Cataño # (Auto) 1.0 H (0.0-0.9) th/mm3 Eos # (Auto) 0.4 (0.0-0.4) th/mm3 Baso # (Auto) 0.1 (0.0-0.2) th/mm3 WBC Differential . Differential Comment . PT 9.6 L (9.8-11.6) sec INR 0.9 Ratio APTT 28.5 (23.4-31.7) sec Fibrinogen 493 H (227-377) mg/dL Sodium 138 (136-145) meq/L Potassium 4.4 (3.5-5.1) meq/L Chloride 104 (98-107) meq/L Carbon Dioxide 23.2 (21.0-32.0) meq/L Anion Gap 11 (5-15) meq/L BUN 54 H (7-18) mg/dL Creatinine 3.80 H (0.60-1.30) mg/dL Estimated GFR 16 L (>89) mL/min Random Glucose 283 H (74-106) mg/dL Calcium 9.6 (8.5-10.1) mg/dL Total Creatine Kinase 215 (39-308) U/L Troponin I 0.04 (0.02-0.05) ng/mL Imaging Data Radiologist's impression: Head CT 05/10/18 12:21 CONCLUSION: 1. Negative for acute process Report was called by Dr. Degroot . Head CTA 05/10/18 12:21 CONCLUSION: 1. Negative CT of the head Report was called by Dr. Degroot. Neck CTA 05/10/18 12:21 CONCLUSION: 1. Negative for hemodynamically significant carotid stenosis Report was called by Zane. Discharge Plan Discharge Disposition Patient Disposition: ED Admit(ED Internal Use Only) Discharge Order Discharge Orders: ED Use Only Admit Order (Routine); Ordered 05/10/18 Ordered By: Blaine Lucas Discharge Details Diagnosis: Acute cerebrovascular accident (CVA), Hypertension, Diabetes, Chronic kidney disease (CKD), Dyslipidemia Physicians Team ED Provider: Blaine Lucas Primary Care Provider: Primary Care Betsey Ricci Attending Provider: Brayden Robledo Discharge Interventions Interventions: Vital Signs Last Done: 05/10/18 12:50 Status ED Status: Admitted Patient
[2018-05-10 12:44] LABS: Calcium 9.6 mg/dL (8.5-10.1); Carbon Dioxide 23.2 meq/L (21.0-32.0)
[2018-05-10 12:52] LABS: Troponin I 0.04 ng/mL (0.02-0.05)
--- NOTE | 2018-05-10 12:52 | CT ---
EXAM DATE: 05/10/2018 12:49 PM EST AGE/SEX: 68 years / Male INDICATIONS: Stroke alert. Slurred speech. Left facial droop. CLINICAL DATA: This is the patient's initial encounter. Patient reports that signs and symptoms have been present for 1 day and indicates a pain score of 0/10. MEDICAL/SURGICAL HISTORY: Diabetes. Hypertension. None. RADIATION DOSE: 42.78 CTDI (mGy) ; Combined studies COMPARISON: No prior exams available for comparison. TECHNIQUE: Volumetric scanning was performed using a multi-row detector CT scanner during bolus infu shay of 100 ml Visipaque 320 (iodixanol) nonionic water-soluble contrast as a cumulative dose for mu ltiple exams. The data was post processed with a variety of visualization algorithms including full volume maximum intensity projection, multi-planar sliding thin slab reformation, curved planar refor mation, and surface rendering techniques. Using automated exposure control and adjustment of the mA and/or kV according to patient size, radiation dose was kept as low as reasonably achievable to obtai n optimal diagnostic quality images. DICOM format image data is available electronically for review and comparison. FINDINGS: There is excellent visualization of the major intracranial arteries out to the second-order branch ve ssels. There is no evidence for aneurysm, vessel truncation or stenosis, and no evidence for vascula r malformation. CONCLUSION: 1. Negative CT of the head Report was called by Dr. Degroot. Electronically signed by: Dudley Degroot MD Board Certified Radiologist 05/10/2018 12:51 PM EST
[2018-05-10 12:57] LABS: Activated Partial Thrombo Time 28.5 sec (23.4-31.7); INR 0.9 Ratio; Prothrombin Time 9.6 sec (9.8-11.6)
[2018-05-10] MEDS ORDERED: Labetalol HCl Inj 100 MG/20 ML Vial IV.PUSH ONE (13:01)
--- NOTE | 2018-05-10 13:10 | CT ---
EXAM DATE: 05/10/2018 1:06 PM EST AGE/SEX: 68 years / Male INDICATIONS: Stroke alert. Slurred speech. Left facial droop. CLINICAL DATA: This is the patient's initial encounter. Patient reports that signs and symptoms have been present for 1 day and indicates a pain score of 0/10. MEDICAL/SURGICAL HISTORY: Hypertension. Diabetes. None. RADIATION DOSE: 42.78 CTDI (mGy) ; Combined studies COMPARISON: No prior exams available for comparison. TECHNIQUE: Volumetric scanning was performed using a multirow detector CT scanner during bolus infus ion of 100 ml Visipaque 320 (iodixanol) nonionic water-soluble contrast as a cumulative dose for mul tiple exams. The data was postprocessed with a variety of visualization algorithms including full-v olume maximum intensity projection, multiplanar sliding thin-slab reformation, curved-planar reformat ion, and surface-rendering techniques. Using automated exposure control and adjustment of the mA and /or kV according to patient size, radiation dose was kept as low as reasonably achievable to obtain o ptimal diagnostic quality images. DICOM format image data is available electronically for review and comparison. Percent stenosis is calculated using the diameter of the stenotic region over the diameter of the nor mal distal internal carotid artery. FINDINGS: Aortic Arch: There is a three-vessel origin of the great vessels from the aorta. No evidence of ost ial narrowing Right Carotid: The common carotid artery is intact. The carotid bulb has a normal configuration wit hout ulceration or narrowing. The internal carotid artery lumen is smooth without stenosis. The ext ernal carotid artery is intact. Left Carotid: The common carotid artery is intact. The carotid bulb has a normal configuration with out ulceration or narrowing. Minimal carotid body calcification The internal carotid artery lumen is smooth without stenosis. The external carotid artery is intact. Vertebrals: Small left vertebral artery ending in PICA patient basilar CONCLUSION: 1. Negative for hemodynamically significant carotid stenosis Report was called by Zane. Electronically signed by: Dudley Degroot MD Board Certified Radiologist 05/10/2018 1:08 PM EST
[2018-05-10] MEDS ORDERED: Sod Chloride 0.9% Inj 1,000 ML IV.SIG SCH (13:15)
--- NOTE | 2018-05-10 13:27 | MB ---
cc: Paulo Hutchinson MD DATE: 05/10/2018 HISTORY OF PRESENT ILLNESS: This patient is a 68-year-old right-handed man with hypertension, insulin-dependent diabetes, hypercholesterolemia. He said he had a stroke a year and a half ago, not quite sure of his symptoms, similar slurred speech than he has now. Thinks he came to this hospital. Nevertheless, he woke up at 1 a.m. this morning, felt like his left arm felt weird and went back to sleep. He got up this morning and he was more weak. He has had a mild headache on the left frontal area of his head. No chest pain or palpitations. REVIEW OF SYSTEMS: He denies any NM, stent, angioplasty, AFib, Coumadin, although he does see Dr. Beverly for cardiology, even though he says he does not have any heart problems. No history of renal, hepatic, pulmonary disease, thyroid disease, lupus, ulcer, cancer or seizure. SOCIAL HISTORY: Not a smoker or drinker, lives with his girlfriend. FAMILY HISTORY: Negative for cancer, seizure or stroke. MEDICATIONS: He does take a baby aspirin a day. Other medications at home appear to be insulin, Gabapentin, Jardiance and the baby aspirin. PHYSICAL EXAMINATION: VITAL SIGNS: 220/110, sinus rhythm. 80 per minute. NECK: No carotid bruits. HEART: Regular rate and rhythm. I did not detect a murmur. NEUROLOGIC: Pupils are equal. He appears to have possibly some visual field defect to the left, it is hard to say, but appears to have some. He does not see as well to the left, although he can count fingers but he tends to look over there. Tongue was midline. He has a left facial droop with normal sensation. There is a positive left drift. He has best strength 5-/5 in left upper extremity. Normal right upper extremity. Bilateral lower extremity strength was normal. Tibialis anterior had normal strength bilaterally. Toes downgoing bilaterally. DTRs are trace to absent throughout. Pinprick was intact, face, arm and leg, both sides. He is ataxic on the left side. Speech is slurred, but fluent. He is not aphasic. Follows commands well. LABORATORY DATA: Pending. He has been in the hospital several times here. In 2014, he was in here with posterior circulation insufficiency. NIH STROKE SCALE: 7. PAST MEDICAL HISTORY: As above. Unable to obtain the old 2015 neuro notes he had come in with, however, apparently from dizziness and unsteady gait he had a left anterior ronnie lacunar infarct with some white matter change. He was started on aspirin. MRA of the brain showed small-vessel atherosclerotic changes. Echo was negative with a normal EF. Strength was noted as normal by rehabilitation. No formal rehab needed to be done. Unfortunately, those images cannot be pulled up on the computer, his old workup. Dr. Mejia's original note showed the MRA of the neck was negative. MRA of the brain was negative and the MRI was positive. He felt dizzy, room spinning, felt weak on the right side but that seemed to have resolved. At that time, I believe he was on 81 of aspirin a day and it was increased to 325 mg. Echocardiogram at that time: Valves looked okay, a normal ejection fraction. Left atrial size was read as normal. No Holter monitor was done. His LDL was 113. His troponin was initially 0.24 and then negative. IMPRESSION: Stroke alert here, an NIH stroke scale of 7. He is going down to CAT scan, but the symptoms started at 1 a.m. and so he will not get IV TPA. We will do a CTA and see if there are any clot that could be pulled out. I was able to get his MRA to come up from 2014. His cabazon of [place] was normal. He looks to be right vertebral dominant. MRA of the neck shows he is right vertebral strongly dominant. The left vert is very tiny. His carotid arteries looked okay bilaterally at that time. MRI of the brain did in fact show an acute left superior ronnie lower midbrain around the cerebral peduncle infarct at the midbrain ronnie junction. No hemorrhage was noted. Small old stroke in bilateral cerebellum was noted, very tiny, with minimal white matter changes, although on the FLAIR in the inferior cerebellum it looks like there may be more. If we do not find anything, we will give him a dose of Plavix on the CTA, MD TOM Lee/viktoria , 12:42 PM , 12:54 PM
[2018-05-10] MEDS ORDERED: Dextrose 50% in Water 50 ML Vial IV.PUSH PRN ×2 (13:28→13:34)
[2018-05-10 13:38] LABS: Bilirubin,Urine Negative (Negative); Clarity,Urine Clear (Clear); Leukocyte Esterase,Urine Negative (Negative); Nitrite,Urine Negative (Negative); Urobilinogen,Urine 0.2 mg/dL (Less than 2)
[2018-05-10 13:49] LABS: Color,Urine Straw (Yellw/Straw)
[2018-05-10 13:54] LABS: Amphetamine Screen,Urine Neg (Neg)
[2018-05-10 13:55] LABS: Barbiturate Screen,Urine Neg (Neg)
[2018-05-10 13:58] LABS: Cannabinoid Screen,Urine Neg (Neg)
[2018-05-10 13:59] LABS: Cocaine Screen,Urine Neg (Neg)
[2018-05-10 14:01] LABS: Squamous Epithelial Cell,Urine 0-5 /hpf (0-5); WBC,Urine 0-5 /hpf (0-5)
[2018-05-10 14:13] LABS: Opiate Screen,Urine Neg (Neg)
--- NOTE | 2018-05-10 14:48 | MR ---
EXAM DATE: 05/10/2018 2:38 PM EST AGE/SEX: 68 years / Male INDICATIONS: CVA. Left sided weakness with slurred speech. CLINICAL DATA: This is the patient's initial encounter. Patient reports that signs and symptoms have been present for 1 day and indicates a pain score of 3/10. MEDICAL/SURGICAL HISTORY: Hyperparathyroidism. Diabetes mellitus type II. Transient ischemic attack. . Neck sx as a child. COMPARISON: [facility], MRI BRAIN W & W/O CONTRAST, 09/16/2014. . TECHNIQUE: Multiplanar, multisequence examination of the brain was performed without contrast. FINDINGS: Problems specific findings: The examination demonstrates a focal area of abnormal diffusion restricte d signal involving the caudate nucleus on the right. There is increased T2 signal within this area on the inversion recovery images. There is no evidence of hemorrhage. Findings would be consistent with a small area of acute cortical infarct. The ventricular system is normal in size and configuration. There are no abnormal extra-axial fluid c ollection. There are scattered areas of increased T2 signal within the white matter most consistent w ith microvascular ischemic demyelinative changes. Imaging through the posterior fossa demonstrates an area of encephalomalacia in the left cerebellar h emisphere consistent with an old left cerebellar infarct as well. Of note, this was not present on e patient's examination of 2014. The orbits are intact. Visualized sinuses are clear. CONCLUSION: 1. Focal area of acute cortical infarct involving the right caudate nucleus as above. 2. Old area of infarct involving the left cerebellar hemisphere. 3. Microvascular ischemic demyelinative changes. Electronically signed by: Canelo Degroot MD Board Certified Radiologist 05/10/2018 2:46 PM EST
--- NOTE | 2018-05-10 15:12 | P.HPIM ---
History of Present Illness Primary Care Physician: No Primary Care Physician Chief Complaint: Slurred speech, Left-sided weakness History of Present Illness: 68-year-old male who past medical history of hypertension, diabetes type 2 and previous history of stroke about a year and half ago per the ED for evaluation of slurred speech, left-sided weakness which initially started around 1 AM this morning. However patient went back to bed and when awake earlier around 6-7 AM he had worsening of slurred speech with significant left-sided weakness. He also reported mild headache. Patient has recently stopped taking his aspirin secondary to a plan eye surgery. While in the ED, initial head CT scan was negative however follow-up brain MRI was positive for ischemic stroke for which neurology was consulted. Inpatient Certification Inpatient Certification: I certify that the inpatient services were ordered in accordance with Medicare regulations governing the order. This includes certification that hospital inpatient services are reasonable and necessary and in the case of services not specified as inpatient-only under 42 CFR 419.22(n), that they are appropriately provided as inpatient services in accordance to with the 2-midnight benchmark under 43 CFR 412.3(e) Estimated Total Length of Stay (Days): 2 Plans for Post Hospital Care: Not yet determined Review of Systems Review of Systems: all other systems reviewed are negative [facility] Family History Family History Other Hypertension Lung cancer Social History Social History Substance History: No History of Abuse Second Hand Smoke Exposure: No Smoking Status: Never smoker Tobacco Type: Cigarettes How Often Do You Have a Drink Containing Alcohol: Monthly or less Recent Travel in [facility] within the Last 8 Weeks: No Recent Out of Country Travel within the Last 8 Weeks: No Immunization History Tetanus Immunization: <5 Years Medications and Allergies Allergies Allergy/AdvReac Type Severity Reaction Status Date / Time penicillin G Allergy Severe ANAPHYLACTIC Verified 05/10/18 13:10 REACTION Home Medications Medication Instructions Recorded Confirmed Type aspirin [Aspirin Low Dose] 81 mg PO DAILY 10/31/17 05/10/18 History gabapentin 800 mg PO DAILY 10/31/17 05/10/18 History hydrocodone-acetaminophen 1 tab PO Q6H PRN 05/10/18 05/10/18 History insulin glargine [Lantus U-100 30 unit SUBCUT BID 05/10/18 05/10/18 History Insulin] Active Medications: Active Medications Clopidogrel Bisulfate (Plavix) 75 mg PO DAILY [facility] Dextrose (D50w Vial) 50 ml IV.PUSH UNSCH PRN PRN Reason: PER HYPOGLYCEMIA PROTOCOL Dextrose (D50w Vial) 50 ml IV.PUSH UNSCH PRN PRN Reason: PER HYPOGLYCEMIA PROTOCOL Glucagon (Glucagon Inj) 1 mg OTHER UNSCH PRN PRN Reason: for Hypoglycemia Protocol Glucagon (Glucagon Inj) 1 mg OTHER UNSCH PRN PRN Reason: for Hypoglycemia Protocol Hydralazine HCl (Apresoline) 25 mg PO TID PRN PRN Reason: SBP>180, DBP>100, HR>65 Sodium Chloride (Ns Inj) 1,000 mls @ 70 mls/hr IV.CONT .[id number] [facility]NA Last Admin: 05/10/18 12:51 Dose: 70 mls/hr Sodium Chloride (Ns Inj) 1,000 mls @ 70 mls/hr IV.CONT .[id number] [facility] Sodium Chloride (Ns Inj) 1,000 mls @ 100 mls/hr IV.CONT .Q10H [facility] Insulin Aspart (Novolog Insulin Correctional Sugar Inj) 0 unit SQ ACHS VER[facility]; Protocol Insulin Aspart (Novolog Insulin Correctional Sugar Inj) 0 unit SQ ACHS [facility]; Protocol Miscellaneous Medication ([facility]) 1 each OTHER ONCE [facility] Stop: 05/15/18 12:38 Sodium Chloride (Ns Flush) 2 ml IV.FLUSH BID [facility]NA Sodium Chloride (Ns Flush) 2 ml IV.FLUSH PRN PRN PRN Reason: FLUSH AFTER USING IV ACCESS Sodium Chloride (Ns Flush) 2 ml IV.FLUSH BID [facility]NA Sodium Chloride (Ns Flush) 2 ml IV.FLUSH PRN PRN PRN Reason: FLUSH AFTER USING IV ACCESS Physical Exam Vital signs: Vital Signs 05/10/18 12:17 05/10/18 12:26 05/10/18 12:50 Pulse Rate 93 H 84 Respiratory Rate 18 Blood Pressure 229/109 H 211/106 H Pulse Oximetry 98 98 05/10/18 12:59 Pulse Rate 80 Respiratory Rate Blood Pressure Pulse Oximetry 100 Intake & Output 05/09/18 05/10/18 05/10/18 18:59 06:59 18:59 Weight 91.8 kg Narrative: GENERAL: NAD SKIN: Warm and dry. HEAD: Atraumatic. Normocephalic. EYES: Pupils equal and round. No scleral icterus. No injection or drainage. ENT: No nasal bleeding or discharge. Mucous membranes pink and moist. NECK: Trachea midline. No JVD. CARDIOVASCULAR: Regular rate and rhythm. RESPIRATORY: No accessory muscle use. Clear to auscultation. Breath sounds equal bilaterally. GASTROINTESTINAL: Abdomen soft, non-tender, nondistended. Hepatic and splenic margins not palpable. MUSCULOSKELETAL: Extremities without clubbing, cyanosis, or edema. No obvious deformities. NEUROLOGICAL: Awake and alert. No obvious cranial nerve deficits. Motor grossly within normal limits. Five out of 5 muscle strength in the arms and legs. Left facial droop. slurred speech PSYCHIATRIC: Appropriate mood and affect; insight and judgment normal. Results Labs CBC & Chem 7: 05/10/18 12:20 05/10/18 12:[address] 05/10/18 12:21 CONCLUSION: 1. Negative for acute process Report was called by Dr. Degroot . Head CTA 05/10/18 12:21 CONCLUSION: 1. Negative CT of the head Report was called by Dr. Degroot. Neck CTA 05/10/18 12:21 CONCLUSION: 1. Negative for hemodynamically significant carotid stenosis Report was called by Zane. Head MRI 05/10/18 12:40 CONCLUSION: 1. Focal area of acute cortical infarct involving the right caudate nucleus as above. 2. Old area of infarct involving the left cerebellar hemisphere. 3. Microvascular ischemic demyelinative changes. Caprini VTE Risk Assessment Caprini VTE Risk Assessment: Moderate/High Risk (score >= 2) Caprini Risk Assessment Model: Point Value = 1 Point Value = 2 Point Value = 3 Point Value = 5 Age 41-60 Minor surgery BMI > 25 kg/m2 Swollen legs Varicose veins or History of unexplained or recurrent spontaneous Oral contraceptives or hormone replacement Sepsis (< 1 month) Serious lung disease, including pneumonia (< 1 month) Abnormal pulmonary function Acute myocardial infarction Congestive heart failure (< 1 month) History of inflammatory bowel disease Medical patient at bed rest Age 61-74 Arthroscopic surgery Major open surgery (> 45 min) Laparoscopic surgery (> 45 min) Malignancy Confined to bed (> 72 hours) Immobilizing plaster cast Central venous access Age >= 75 History of VTE Family history of VTE Factor V Leiden Prothrombin [id number] Lupus anticoagulant Anticardiolipin antibodies Elevated serum homocysteine Heparin-induced thrombocytopenia Other congenital or acquired thrombophilia Stroke (< 1 month) Elective arthroplasty Hip, pelvis, or leg fracture Acute spinal cord injury (< 1 month) Prophylaxis Regimen: Total Risk Factor Score Risk Level Prophylaxis Regimen 0-1 Low Early ambulation 2 Moderate Order ONE of the following: *Sequential Compression Device (SCD) *Heparin 5000 units SQ BID 3-4 Higher Order ONE of the following medications: *Heparin 5000 units SQ TID *Enoxaparin/Lovenox 40 mg SQ daily (WT < 150 kg, CrCl > 30 mL/min) *Enoxaparin/Lovenox 30 mg SQ daily (WT < 150 kg, CrCl > 10-29 mL/min) *Enoxaparin/Lovenox 30 mg SQ BID (WT < 150 kg, CrCl > 30 mL/min) AND/OR *Sequential Compression Device (SCD) 5 or more Highest Order ONE of the following medications: *Heparin 5000 units SQ TID (Preferred with Epidurals) *Enoxaparin/Lovenox 40 mg SQ daily (WT < 150 kg, CrCl > 30 mL/min) *Enoxaparin/Lovenox 30 mg SQ daily (WT < 150 kg, CrCl > 10-29 mL/min) *Enoxaparin/Lovenox 30 mg SQ BID (WT < 150 kg, CrCl > 30 mL/min) AND *Sequential Compression Device (SCD) Assessment and Plan Plan 68-year-old man with Ischemic CVA Continue treatment per ischemic stroke per protocol Head CT noted and reviewed by me and negative for acute process MRI noted and reviewed by me with finding of focal area of an acute cortical infarct involving the right caudate nucleus Neurology was consulted Allow for permissive hypertension Check 2D echo and Place Holter monitoring Check lipid profile, hemoglobin A1c PT/OT/speech consult to treat and eval Start aspirin and consider Plavix Hypertension Allow for permissive hypertension Hydralazine IV as needed Diabetes type 2 Hold all oral antihyperglycemic agents Start insulin sliding scale with fingerstick blood glucose monitoring 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
[2018-05-10] MEDS: Sod Chloride 0.9% Inj 1,000 ML IV.CONT SCH (15:15)
--- NOTE | 2018-05-10 16:42 | OTSOAPIP ---
TIME SESSION COMPLETED: 1530 TREATMENT TIME: 0 MINS. CHART REVIEWED. RECEIVED ORDER FOR OT CONSULT FROM DR. ORDAZ. PATIENT ON BEDREST HEAD OF BED FLAT AND NURSE AND DR. ORDAZ IN TO SEE PATIENT AND REQUESTED TO DEFER UNTIL TOMORROW. Therapist: Nancy Marks Signature on file
--- NOTE | 2018-05-10 16:51 | ECHRPT ---
Indication: CVA/TIA CONCLUSIONS Normal left ventricular size. Wall thickness is measured at the upper limits of normal. The left ventricular systolic function is normal with an estimated ejection fraction in the range of 55-60%. Trace mitral valve regurgitation. There is trace tricuspid valve regurgitation. The estimated pulmonary arterial pressure is 28 mmHg. There is a small pericardial effusion present. BP: 213 / 103 HR: 82 Rhythm: MEASUREMENTS (Male / Female) Normal Values Technical Quality:Fair 2D ECHO LV Diastolic Diameter PLAX 5.0 cm 4.2 - 5.9 / 3.9 - 5.3 cm LV Systolic Diameter PLAX 3.0 cm IVS Diastolic Thickness 0.9 cm 0.6 - 1.0 / 0.6 - 0.9 cm LVPW Diastolic Thickness 1.0 cm 0.6 - 1.0 / 0.6 - 0.9 cm LV Relative Wall Thickness 0.4 RV Internal Dim ED PLAX 2.5 cm LVOT Diameter 2.3 cm Aortic Root Diameter 2.9 cm LA Systolic Diameter LX 3.5 cm 3.0 - 4.0 / 2.7 - 3.8 cm M-MODE AV Cusp Separation MM 2.2 cm DOPPLER AV Peak Velocity 78.7 cm/s AV Peak Gradient 2.5 mmHg LVOT Peak Velocity 67.1 cm/s LVOT Peak Gradient 1.8 mmHg AV Area Cont Eq pk 3.5 cm Mitral E Point Velocity 94.8 cm/s Mitral A Point Velocity 48.4 cm/s Mitral E to A Ratio 2.0 LV E' Lateral Velocity 3.8 cm/s Mitral E to LV E' Lateral Ratio 24.9 LV E' Septal Velocity 3.3 cm/s Mitral E to LV E' Septal Ratio 28.6 TR Peak Velocity 213.0 cm/s TR Peak Gradient 18.1 mmHg Right Atrial Pressure 10.0 mmHg Pulmonary Artery Systolic Pressu 28.1 mmHg Right Ventricular Systolic Press 28.1 mmHg FINDINGS LEFT VENTRICLE Normal left ventricular size. Wall thickness is measured at the upper limits of normal. The left ventricular systolic function is normal with an estimated ejection fraction in the range of 55-60%. RIGHT VENTRICLE Normal right ventricular size and systolic function. LEFT ATRIUM The left atrial size is normal. RIGHT ATRIUM The right atrial size is normal. ATRIAL SEPTUM Normal atrial septal thickness without atrial level shunting by limited color doppler interrogation. AORTA The aortic root and proximal ascending aorta are normal in size on limited imaging. MITRAL VALVE Trace mitral valve regurgitation. AORTIC VALVE Trileaflet aortic valve. No aortic valve stenosis or regurgitation. TRICUSPID VALVE There is trace tricuspid valve regurgitation. The estimated pulmonary arterial pressure is 28 mmHg. PULMONARY VALVE No pulmonary valve regurgitation or stenosis. VESSELS The inferior vena cava is normal in size. PERICARDIUM There is a small pericardial effusion present. Stephen Hair MD, FACC (Electronically Signed) Final Date:10 May 2018 16:50
[2018-05-10] MEDS: Insulin NovoLOG Aspart Correctional Sugar Inj SQ SCH ×3 (17:18→21:57)
[2018-05-10] MEDS: Labetalol HCl Inj 20 MG/4 ML Vial IV.PUSH PRN (18:05)
[2018-05-10] MEDS ORDERED: Acetaminophen 325 MG Tablet PO ONE (22:48)
[2018-05-11] MEDS: Sod Chloride 0.9% Inj 1,000 ML IV.CONT SCH ×2 (01:56→11:53)
[2018-05-11 06:36] LABS: Albumin 2.5 g/dL (3.4-5.0)
[2018-05-11 06:41] LABS: Total Protein 5.9 g/dL (6.4-8.2)
[2018-05-11] MEDS: Insulin NovoLOG Aspart Correctional Sugar Inj SQ SCH ×5 (07:16→20:32)
[2018-05-11] MEDS: Acetaminophen 325 MG Tablet PO PRN (10:41)
[2018-05-11 12:14] LABS: Chol/HDL Ratio 6.91 Ratio; HDL Cholesterol 31.1 mg/dL (40.0-60.0)
[2018-05-11 13:18] LABS: Hemoglobin A1c 10.3 % (4.3-6.0)
[2018-05-11] MEDS: hydrALAZINE 25 MG Tablet PO PRN ×2 (13:36→20:32)
--- NOTE | 2018-05-11 13:45 | P.PNIM ---
Subjective Interval history: Follow-up acute ischemic CVA May 11, 2018-patient seen and examined, he was up and ambulated with assistance of PT. Reported improvement of slurring of the speech. Sister by the bedside. Physical Exam Vital signs: Vital Signs 05/10/18 16:00 05/10/18 17:00 05/10/18 18:00 Temperature Pulse Rate 78 78 86 Respiratory Rate 19 13 28 H Blood Pressure 196/116 H 184/100 H 227/115 H Pulse Oximetry 97 97 98 05/10/18 18:03 05/10/18 18:07 05/10/18 18:10 Temperature Pulse Rate 88 72 Respiratory Rate 29 H 18 Blood Pressure 221/108 H 153/81 H Pulse Oximetry 99 100 96 05/10/18 18:30 05/10/18 19:36 05/10/18 19:40 Temperature 98.8 F Pulse Rate 78 74 Respiratory Rate 20 24 Blood Pressure 196/96 H 174/83 H Pulse Oximetry 99 97 97 05/10/18 20:00 05/10/18 21:00 05/10/18 22:00 Temperature Pulse Rate 88 80 80 Respiratory Rate 21 Blood Pressure 180/84 H Pulse Oximetry 97 05/11/18 00:00 05/11/18 00:18 05/11/18 02:00 Temperature 98 F Pulse Rate 78 74 74 Respiratory Rate 20 18 Blood Pressure 148/78 H Pulse Oximetry 95 05/11/18 04:00 05/11/18 04:03 05/11/18 06:00 Temperature 98.2 F Pulse Rate 68 70 78 Respiratory Rate 14 28 H Blood Pressure 167/79 H Pulse Oximetry 96 05/11/18 07:59 05/11/18 09:08 05/11/18 09:27 Temperature 98.6 F Pulse Rate 81 84 Respiratory Rate 16 Blood Pressure 137/74 Pulse Oximetry 97 97 05/11/18 11:36 05/11/18 12:00 05/11/18 12:41 Temperature 99.1 F Pulse Rate 89 82 Respiratory Rate 16 Blood Pressure Pulse Oximetry 97 05/11/18 13:16 05/11/18 13:21 Temperature Pulse Rate Respiratory Rate Blood Pressure 208/105 H 203/88 H Pulse Oximetry Intake & Output 05/10/18 05/11/18 05/11/18 18:59 06:59 18:59 Intake Total 240 / 240 1620 / 1620 2550 / 2550 Output Total 500 / 500 700 / 700 100 / 100 Balance -260 / -260 920 / 920 2450 / 2450 Weight 90 kg 92.2 kg Intake: IV 1000 / 1000 2550 / 2550 NS Inj 1,000 ML @ 100 mls/hr IV 1000 / 1000 2550 / 2550 .CONT .Q10H VERNA Rx#:[id number] Oral 240 / 240 620 / 620 Output: Urine 500 / 500 700 / 700 100 / 100 Other: # Voids 1 Date of Last Bowel Movement 05/10/18 05/10/18 # Bowel Movements 0 Weight On Admission 91.8 kg Narrative: GENERAL: NAD SKIN: Warm and dry. HEAD: Atraumatic. Normocephalic. EYES: Pupils equal and round. No scleral icterus. No injection or drainage. ENT: No nasal bleeding or discharge. Mucous membranes pink and moist. NECK: Trachea midline. No JVD. CARDIOVASCULAR: Regular rate and rhythm. RESPIRATORY: No accessory muscle use. Clear to auscultation. Breath sounds equal bilaterally. GASTROINTESTINAL: Abdomen soft, non-tender, nondistended. Hepatic and splenic margins not palpable. MUSCULOSKELETAL: Extremities without clubbing, cyanosis, or edema. No obvious deformities. NEUROLOGICAL: Awake and alert. No obvious cranial nerve deficits. Motor grossly within normal limits. Five out of 5 muscle strength in the arms and legs. Left facial droop. slurred speech PSYCHIATRIC: Appropriate mood and affect; insight and judgment normal. Results Labs CBC & Chem 7: 05/10/18 12:20 05/10/18 12:20 Imaging Imaging: Impressions Head MRI 05/10/18 12:40 CONCLUSION: 1. Focal area of acute cortical infarct involving the right caudate nucleus as above. 2. Old area of infarct involving the left cerebellar hemisphere. 3. Microvascular ischemic demyelinative changes. Assessment and Plan Plan 68-year-old man with Ischemic CVA Continue treatment per ischemic stroke per protocol Head CT negative for acute process MRI with finding of focal area of an acute cortical infarct involving the right caudate nucleus Neurology ff Allow for permissive hypertension 2D echo with EF 55-60% and Holter monitoring placed Cardiology consultation pending Start Lipitor 10 mg at bedtime PT/OT/speech consult to treat and eval Currently on Plavix Hypertension Allow for permissive hypertension Hydralazine IV as needed Diabetes type 2 Hold all oral antihyperglycemic agents Continue insulin sliding scale with fingerstick blood glucose monitoring 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
--- NOTE | 2018-05-11 17:56 | MB ---
cc: Alfa Beverly MD DATE: 05/11/2018 REASON FOR CONSULTATION: CVA. HISTORY OF PRESENT ILLNESS: The patient is a very pleasant 68-year-old gentleman with a history of prior CVA who presented with another CVA, which she experiences left-sided weakness. I have been asked to perform a loop recorder to exclude atrial fibrillation. The patient is completely asymptomatic from a cardiac standpoint. No chest pain, shortness of breath, lightheadedness, dizziness, syncope. PAST MEDICAL HISTORY: CVA, hypertension, diabetes. CURRENT MEDICATIONS: 1. Tylenol. 2. Lipitor. 3. Plavix 75 mg daily. ALLERGIES: PENICILLIN. PHYSICAL EXAMINATION: VITAL SIGNS: Temperature 99.1, pulse 99, blood pressure 198/102, saturating 97% on room air. GENERAL: Pleasant gentleman in no distress. NECK: No JVD. LUNGS: Clear to auscultation bilaterally. CARDIOVASCULAR: Regular rate and rhythm. No murmurs appreciated. ABDOMEN: Lax. EXTREMITIES: No edema. LABORATORY DATA: White count 10.4, hematocrit 38.6, platelets 349. Sodium 138, potassium 4.4, chloride 104, bicarbonate 23.2, BUN 54, creatinine 3.8, glucose 283. EKG shows sinus rhythm without any significant ST or T-wave changes. Echocardiogram shows normal ejection fraction. IMPRESSION: Cerebrovascular accident. The patient had a second cerebrovascular accident and there is concern for embolic phenomenon. I will have him undergo a loop recorder on Sunday for which the patient agrees. Further recommendations based on the above. Thank you for the opportunity to participate in this patient's care. Alfa Beverly MD FABRICE/sv , 04:25 PM , 04:32 PM
[2018-05-11] MEDS: Labetalol HCl Inj 20 MG/4 ML Vial IV.PUSH PRN (19:45)
--- NOTE | 2018-05-11 21:23 | ECG ---
Date Performed: 05/10/2018 Time Performed: 12:59:43 PTAGE: 68 years EKG: Sinus rhythm MARKED LEFT AXIS DEVIATION NONSPECIFIC T-WAVE ABNORMALITY ABNORMAL ECG PREVIOUS TRACING : 09/16/2014 11.41 Since the previous tracing, no significant change noted DOCTOR: Stephen Hair Interpretating Date/Time 05/11/2018 21:22:56
[2018-05-11] MEDS ORDERED: hydrALAZINE HCl Inj 20 MG/ML Vial IV.PUSH ONE ×2 (21:31)
--- NOTE | 2018-05-11 22:13 | P.PNNEU ---
Subjective Subjective Comments: Patient is seen with no family members at the bed side Sits on a chair No new complaint, left facial droop, left sided weakness, dysarthria MRI brain revealed right sided caudate ischemic stroke Active Medications: Active Medications Acetaminophen (Tylenol) 650 mg PO Q4H PRN PRN Reason: HEADACHE Last Admin: 05/11/18 10:41 Dose: 650 mg Atorvastatin Calcium (Lipitor) 10 mg PO HS [facility] Last Admin: 05/11/18 20:23 Dose: 10 mg Clopidogrel Bisulfate (Plavix) 75 mg PO DAILY [facility] Last Admin: 05/11/18 08:07 Dose: 75 mg Dextrose (D50w Vial) 50 ml IV.PUSH UNSCH PRN PRN Reason: PER HYPOGLYCEMIA PROTOCOL Glucagon (Glucagon Inj) 1 mg OTHER UNSCH PRN PRN Reason: for Hypoglycemia Protocol Hydralazine HCl (Apresoline) 25 mg PO TID PRN PRN Reason: SBP>180, DBP>100, HR>65 Last Admin: 05/11/18 20:32 Dose: 25 mg Sodium Chloride (Ns Inj) 1,000 mls @ 60 mls/hr IV.CONT .[id number] [facility] Last Infusion: 05/11/18 19:06 Dose: 60 mls/hr Insulin Aspart (Novolog Insulin Correctional Sugar Inj) 0 unit SQ ACHS [facility]; Protocol Last Admin: 05/11/18 20:32 Dose: 4 unit Labetalol HCl (Trandate Inj) 10 mg IV.PUSH Q6H PRN PRN Reason: SBP>180, DBP>110 Last Admin: 05/11/18 19:45 Dose: 10 mg Miscellaneous Medication ([facility]) 1 each OTHER ONCE [facility] Stop: 05/15/18 12:38 Sodium Chloride (Ns Flush) 2 ml IV.FLUSH BID [facility] Last Admin: 05/11/18 08:06 Dose: Not Given Sodium Chloride (Ns Flush) 2 ml IV.FLUSH PRN PRN PRN Reason: FLUSH AFTER USING IV ACCESS Sodium Chloride (Ns Flush) 2 ml IV.FLUSH BID [facility] Last Admin: 05/11/18 08:06 Dose: Not Given Sodium Chloride (Ns Flush) 2 ml IV.FLUSH PRN PRN PRN Reason: FLUSH AFTER USING IV ACCESS Allergies/Adverse Reactions: Allergies Allergy/AdvReac Type Severity Reaction Status Date / Time penicillin G Allergy Severe ANAPHYLACTIC Verified 05/10/18 13:10 REACTION Physical Exam Vital signs: Vital Signs 05/11/18 00:00 05/11/18 00:18 05/11/18 02:00 Temperature 98 F Pulse Rate 78 74 74 Respiratory Rate 20 18 Blood Pressure 148/78 H Pulse Oximetry 95 05/11/18 04:00 05/11/18 04:03 05/11/18 06:00 Temperature 98.2 F Pulse Rate 68 70 78 Respiratory Rate 14 28 H Blood Pressure 167/79 H Pulse Oximetry 96 05/11/18 07:59 05/11/18 09:08 05/11/18 09:27 Temperature 98.6 F Pulse Rate 81 84 Respiratory Rate 16 Blood Pressure 137/74 Pulse Oximetry 97 97 05/11/18 11:36 05/11/18 12:00 05/11/18 12:41 Temperature 99.1 F Pulse Rate 89 82 Respiratory Rate 16 Blood Pressure Pulse Oximetry 97 05/11/18 13:16 05/11/18 13:21 05/11/18 14:00 Temperature Pulse Rate 89 Respiratory Rate Blood Pressure 208/105 H 203/88 H Pulse Oximetry 05/11/18 14:34 05/11/18 16:00 05/11/18 16:39 Temperature 98.3 F Pulse Rate 85 82 Respiratory Rate 12 Blood Pressure 198/102 H 184/97 H Pulse Oximetry 05/11/18 18:00 05/11/18 19:29 05/11/18 20:00 Temperature Pulse Rate 98 H 90 Respiratory Rate 24 Blood Pressure 214/108 H Pulse Oximetry 98 05/11/18 20:24 05/11/18 21:11 Temperature 98.8 F Pulse Rate 82 86 Respiratory Rate 25 H 23 Blood Pressure 206/110 H 207/105 H Pulse Oximetry Intake & Output 05/11/18 05/11/18 05/12/18 06:59 18:59 06:59 Intake Total 1620 / 1620 2550 / 2550 420 / 420 Output Total 700 / 700 400 / 400 Balance 920 / 920 2150 / 2150 420 / 420 Weight 92.2 kg Intake: IV 1000 / 1000 2550 / 2550 420 / 420 NS Inj 1,000 ML @ 60 mls/hr IV. 1000 / 1000 2550 / 2550 420 / 420 CONT .[id number] [facility] Rx#: [id number] Oral 620 / 620 Output: Urine 700 / 700 400 / 400 Other: # Voids 1 Date of Last Bowel Movement 05/10/18 # Bowel Movements 0 - Constitutional no acute distress, obese, cooperative - Routine HEENT Exam Head: Present: normocephalic, atraumatic Eye: Present: EOMI, PERRL, normal accommodation ENT: Present: mucous membranes moist - Routine Neck Exam Present: supple, full ROM - Routine Cardiovascular Exam Present: RRR, S1, S2 - Routine Abdominal Exam Present: soft, normoactive bowel sounds - Routine Neurological Exam Present: alert, oriented X3, sensory deficit Awake, alert, orientedx3, dysarthria, no dysphasia, no nystagmus, no diplopia, pupils are equal reaction to light L facial palsy, left hemiparesis in pyramidal distribution. intact snesation and cerebellar functions. - Routine Psychiatric Exam Present: normal affect, normal thought process Objective Radiology Results: MRI brain revealed 1. Focal area of acute cortical infarct involving the right caudate nucleus as above. 2. Old area of infarct involving the left cerebellar hemisphere. 3. Microvascular ischemic demyelinative changes. CT head with no acute intracranial abnormality CTA Head&Neck with no significant stenosis Laboratory Results - last 24 hr 05/11/18 05/11/18 05/11/18 03:01 03:25 03:52 POC Glucose 65 66 88 Hemoglobin A1c Total Bilirubin Direct Bilirubin Indirect Bilirubin AST ALT Alkaline Phosphatase Total Protein Albumin Triglycerides Cholesterol LDL Cholesterol, Calc HDL Cholesterol Cholesterol/HDL Ratio 05/11/18 05/11/18 05/11/18 04:13 05:39 05:39 POC Glucose 99 Hemoglobin A1c 10.3 H Total Bilirubin 0.2 Direct Bilirubin 0.1 Indirect Bilirubin 0.1 AST 16 ALT 12 Alkaline Phosphatase 83 Total Protein 5.9 L Albumin 2.5 L Triglycerides 211 H Cholesterol 215 H LDL Cholesterol, Calc 142 H HDL Cholesterol 31.1 L Cholesterol/HDL Ratio 6.91 05/11/18 05/11/18 05/11/18 07:46 11:35 16:37 POC Glucose 161 217 197 Hemoglobin A1c Total Bilirubin Direct Bilirubin Indirect Bilirubin AST ALT Alkaline Phosphatase Total Protein Albumin Triglycerides Cholesterol LDL Cholesterol, Calc HDL Cholesterol Cholesterol/HDL Ratio 05/11/18 20:28 POC Glucose 235 Hemoglobin A1c Total Bilirubin Direct Bilirubin Indirect Bilirubin AST ALT Alkaline Phosphatase Total Protein Albumin Triglycerides Cholesterol LDL Cholesterol, Calc HDL Cholesterol Cholesterol/HDL Ratio Review/Management - Review/Management Plan: Aciure right sided lacunar stroke HTN DM Neuro checks Q4h Plavix 75 mg daily Cardiac ECHO unremarkable Follow up with cardiology for loop recorder placement Telemetry Can downgrade to a medical floor DVT prophylaxis GI prophylaxis PT/OT, recommendations are appreciated
[2018-05-12] MEDS: hydrALAZINE 25 MG Tablet PO PRN ×2 (04:21→17:16)
[2018-05-12] MEDS: Sod Chloride 0.9% Inj 1,000 ML IV.CONT SCH (04:23)
[2018-05-12 07:43] LABS: Baso # (Auto) 0.1 th/mm3 (0.0-0.2); Baso % (Auto) 0.8 % (0.0-2.0); Eos # (Auto) 0.7 th/mm3 (0.0-0.4); Eos % (Auto) 7.4 % (0.0-4.0); Hematocrit 33.8 % (39.0-51.0); Hemoglobin 11.2 gm/dL (13.0-17.0); Lymph # (Auto) 2.4 th/mm3 (1.0-4.8); Lymph % (Auto) 23.7 % (9.0-44.0); Mean Corpuscular Hemoglobin 29.4 pg (27.0-34.0); Mean Corpuscular Volume 88.9 fL (80.0-100.0); Mean Platelet Volume 8.3 fL (7.0-11.0); Mono # (Auto) 1.1 th/mm3 (0.0-0.9); Mono % (Auto) 10.9 % (0.0-8.0); Neut # (Auto) 5.6 th/mm3 (1.8-7.7); Neut % (Auto) 57.2 % (16.0-70.0); Platelet Count 304 th/mm3 (150-450); Red Cell Distribution Width 12.6 % (11.6-17.2); White Blood Count 9.9 th/mm3 (4.0-11.0)
[2018-05-12 08:37] LABS: Alanine Aminotransferase 13 U/L (12-78); Albumin 2.5 g/dL (3.4-5.0); Alkaline Phosphatase 76 U/L (45-117); Anion Gap 10 meq/L (5-15); Aspartate Aminotransferase 16 U/L (15-37); Blood Urea Nitrogen 36 mg/dL (7-18); Calcium 8.1 mg/dL (8.5-10.1); Chloride 112 meq/L (98-107); Glomerular Filtration Rate 21 mL/min (>89); Glucose,Random 110 mg/dL (74-106); Potassium 3.5 meq/L (3.5-5.1); Sodium 144 meq/L (136-145); Total Protein 5.9 g/dL (6.4-8.2)
[2018-05-12] MEDS: Insulin NovoLOG Aspart Correctional Sugar Inj SQ SCH ×4 (08:56→20:47)
--- NOTE | 2018-05-12 10:50 | P.PNIM ---
Subjective Interval history: Follow-up acute ischemic CVA For as patient seen and examined, stable, denies any chest pain or shortness of breath. BP labile. Case discussed with Sister by the bedside. Discuss about the need for loop recorder explant on Sunday, to which patient is now agreeable Physical Exam Vital signs: Vital Signs 05/11/18 11:36 05/11/18 12:00 05/11/18 12:41 Temperature 99.1 F Pulse Rate 89 82 Respiratory Rate 16 Blood Pressure Pulse Oximetry 97 05/11/18 13:16 05/11/18 13:21 05/11/18 14:00 Temperature Pulse Rate 89 Respiratory Rate Blood Pressure 208/105 H 203/88 H Pulse Oximetry 05/11/18 14:34 05/11/18 16:00 05/11/18 16:39 Temperature 98.3 F Pulse Rate 85 82 Respiratory Rate 12 Blood Pressure 198/102 H 184/97 H Pulse Oximetry 05/11/18 18:00 05/11/18 19:29 05/11/18 20:00 Temperature Pulse Rate 98 H 90 83 Respiratory Rate 24 Blood Pressure 214/108 H Pulse Oximetry 98 05/11/18 20:24 05/11/18 21:11 05/11/18 21:39 Temperature 98.8 F Pulse Rate 82 86 80 Respiratory Rate 25 H 23 24 Blood Pressure 206/110 H 207/105 H 176/93 H Pulse Oximetry 05/11/18 22:00 05/11/18 23:00 05/12/18 00:00 Temperature 98 F Pulse Rate 80 84 88 Respiratory Rate 19 26 H Blood Pressure 170/89 H 170/79 H Pulse Oximetry 05/12/18 02:00 05/12/18 04:00 05/12/18 04:17 Temperature 98.6 F Pulse Rate 78 88 86 Respiratory Rate 13 13 Blood Pressure 184/88 H Pulse Oximetry 05/12/18 05:15 05/12/18 06:00 Temperature Pulse Rate 84 79 Respiratory Rate 18 Blood Pressure 151/73 H Pulse Oximetry 97 Intake & Output 05/11/18 05/12/18 05/12/18 18:59 06:59 18:59 Intake Total 2550 / 2550 1600 / 1600 Output Total 400 / 400 1200 / 1200 Balance 2150 / 2150 400 / 400 Weight 94.2 kg Intake: IV 2550 / 2550 1000 / 1000 NS Inj 1,000 ML @ 60 mls/hr IV. 2550 / 2550 1000 / 1000 CONT .[id number] [facility] Rx#: [id number] Oral 600 / 600 Output: Urine 400 / 400 1200 / 1200 Other: # Voids 9 Date of Last Bowel Movement 05/10/18 05/10/18 # Bowel Movements 0 Narrative: GENERAL: NAD SKIN: Warm and dry. HEAD: Atraumatic. Normocephalic. EYES: Pupils equal and round. No scleral icterus. No injection or drainage. ENT: No nasal bleeding or discharge. Mucous membranes pink and moist. NECK: Trachea midline. No JVD. CARDIOVASCULAR: Regular rate and rhythm. RESPIRATORY: No accessory muscle use. Clear to auscultation. Breath sounds equal bilaterally. GASTROINTESTINAL: Abdomen soft, non-tender, nondistended. Hepatic and splenic margins not palpable. MUSCULOSKELETAL: Extremities without clubbing, cyanosis, or edema. No obvious deformities. NEUROLOGICAL: Awake and alert. No obvious cranial nerve deficits. Motor grossly within normal limits. Five out of 5 muscle strength in the arms and legs. Left facial droop. slurred speech PSYCHIATRIC: Appropriate mood and affect; insight and judgment normal. Results Labs CBC & Chem 7: 05/12/18 05:38 05/12/18 05:38 Assessment and Plan Plan 68-year-old man with Ischemic CVA Continue treatment per ischemic stroke per protocol Head CT negative for acute process MRI with finding of focal area of an acute cortical infarct involving the right caudate nucleus Neurology ff d/c permissive hypertension 2D echo with EF 55-60% and Holter monitoring placed Appreciate input from cardiology pending loop recorder placement on Sunday May 13, 2018 Continue Lipitor 10 mg at bedtime PT/OT/speech consult to treat and eval Currently on Plavix Hypertension d/c permissive hypertension Start Lopressor 50 mg p.o. 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
[2018-05-12] MEDS: Metoprolol Tartrate 50 MG Tablet PO SCH ×2 (12:43→20:47)
--- NOTE | 2018-05-12 15:34 | P.PNCA ---
Subjective Interval history: Pt feeling well, no complaints. Medications and Allergies Active Medications: Active Medications Acetaminophen (Tylenol) 650 mg PO Q4H PRN PRN Reason: HEADACHE Last Admin: 05/11/18 10:41 Dose: 650 mg Acetaminophen (Tylenol) 650 mg PO Q4H PRN PRN Reason: HEADACHE Atorvastatin Calcium (Lipitor) 10 mg PO HS [facility] Last Admin: 05/11/18 20:23 Dose: 10 mg Clopidogrel Bisulfate (Plavix) 75 mg PO DAILY [facility] Last Admin: 05/12/18 08:56 Dose: 75 mg Dextrose (D50w Vial) 50 ml IV.PUSH UNSCH PRN PRN Reason: PER HYPOGLYCEMIA PROTOCOL Glucagon (Glucagon Inj) 1 mg OTHER UNSCH PRN PRN Reason: for Hypoglycemia Protocol Hydralazine HCl (Apresoline) 25 mg PO TID PRN PRN Reason: SBP>180, DBP>100, HR>65 Last Admin: 05/12/18 04:21 Dose: 25 mg Insulin Aspart (Novolog Insulin Correctional Sugar Inj) 0 unit SQ ACHS [facility]; Protocol Last Admin: 05/12/18 12:40 Dose: 4 unit Labetalol HCl (Trandate Inj) 10 mg IV.PUSH Q6H PRN PRN Reason: SBP>180, DBP>110 Last Admin: 05/11/18 19:45 Dose: 10 mg Metoprolol Tartrate (Lopressor) 50 mg PO BID [facility] Last Admin: 05/12/18 12:43 Dose: 50 mg Miscellaneous Medication ([facility] Information) 1 each OTHER ONCE [facility] Stop: 05/15/18 12:38 Sodium Chloride (Ns Flush) 2 ml IV.FLUSH BID [facility] Last Admin: 05/12/18 08:57 Dose: 2 ml Sodium Chloride (Ns Flush) 2 ml IV.FLUSH PRN PRN PRN Reason: FLUSH AFTER USING IV ACCESS Sodium Chloride (Ns Flush) 2 ml IV.FLUSH BID [facility] Last Admin: 05/12/18 08:58 Dose: Not Given Sodium Chloride (Ns Flush) 2 ml IV.FLUSH PRN PRN PRN Reason: FLUSH AFTER USING IV ACCESS Allergies Allergy/AdvReac Type Severity Reaction Status Date / Time penicillin G Allergy Severe ANAPHYLACTIC Verified 05/10/18 13:10 REACTION Home Medications Medication Instructions Recorded Confirmed Type aspirin [Aspirin Low Dose] 81 mg PO DAILY 10/31/17 05/10/18 History gabapentin 800 mg PO DAILY 10/31/17 05/10/18 History hydrocodone-acetaminophen 1 tab PO Q6H PRN 05/10/18 05/10/18 History insulin glargine [Lantus U-100 30 unit SUBCUT BID 05/10/18 05/10/18 History Insulin] Physical Exam Vital signs: Vital Signs 05/11/18 16:00 05/11/18 16:39 05/11/18 18:00 Temperature 98.3 F Pulse Rate 85 82 98 H Respiratory Rate 12 Blood Pressure 184/97 H Pulse Oximetry 05/11/18 19:29 05/11/18 20:00 05/11/18 20:24 Temperature 98.8 F Pulse Rate 90 83 82 Respiratory Rate 24 25 H Blood Pressure 214/108 H 206/110 H Pulse Oximetry 98 05/11/18 21:11 05/11/18 21:39 05/11/18 22:00 Temperature Pulse Rate 86 80 80 Respiratory Rate 23 24 Blood Pressure 207/105 H 176/93 H Pulse Oximetry 05/11/18 23:00 05/12/18 00:00 05/12/18 02:00 Temperature 98 F Pulse Rate 84 88 78 Respiratory Rate 19 26 H Blood Pressure 170/89 H 170/79 H Pulse Oximetry 05/12/18 04:00 05/12/18 04:17 05/12/18 05:15 Temperature 98.6 F Pulse Rate 88 86 84 Respiratory Rate 13 13 18 Blood Pressure 184/88 H 151/73 H Pulse Oximetry 97 05/12/18 06:00 05/12/18 08:01 05/12/18 12:42 Temperature Pulse Rate 79 88 90 Respiratory Rate 25 H 27 H Blood Pressure 194/91 H 199/100 H Pulse Oximetry 98 Intake & Output 05/11/18 05/12/18 05/12/18 18:59 06:59 18:59 Intake Total 2550 / 2550 1600 / 1600 Output Total 400 / 400 1200 / 1200 Balance 2150 / 2150 400 / 400 Weight 94.2 kg Intake: IV 2550 / 2550 1000 / 1000 NS Inj 1,000 ML @ 60 mls/hr IV. 2550 / 2550 1000 / 1000 CONT .[id number] [facility] Rx#: [id number] Oral 600 / 600 Output: Urine 400 / 400 1200 / 1200 Other: # Voids 9 Date of Last Bowel Movement 05/10/18 05/10/18 05/10/18 # Bowel Movements 0 - Constitutional no acute distress - Routine HEENT Exam Head: Present: normocephalic ENT: Present: mucous membranes moist - Routine Neck Exam Absent: JVD - Routine Respiratory Exam Present: accessory muscle use - Routine Cardiovascular Exam Present: RRR. Absent: murmur - Routine Abdominal Exam Present: soft - Routine Extremities Exam Absent: edema Results 05/12/18 05:38 05/12/18 05:38 Cardiac Enzymes 05/11/18 05/12/18 Range/Units 05:39 05:38 AST 16 16 (15-37) U/L Lipids 05/11/18 Range/Units 05:39 Triglycerides 211 H (42-150) mg/dL Cholesterol 215 H (120-200) mg/dL HDL Cholesterol 31.1 L (40.0-60.0) mg/dL Cholesterol/HDL Ratio 6.91 Ratio CBC 05/12/18 Range/Units 05:38 WBC 9.9 (4.0-11.0) th/mm3 RBC 3.80 L (4.50-5.90) mil/mm3 Hgb 11.2 L (13.0-17.0) gm/dL Hct 33.8 L (39.0-51.0) % Plt Count 304 (150-450) th/mm3 Neut # (Auto) 5.6 (1.8-7.7) th/mm3 Lymph # (Auto) 2.4 (1.0-4.8) th/mm3 [place] # (Auto) 1.1 H (0.0-0.9) th/mm3 Eos # (Auto) 0.7 H (0.0-0.4) th/mm3 Baso # (Auto) 0.1 (0.0-0.2) th/mm3 Comprehensive Metabolic Panel 05/11/18 05/12/18 Range/Units 05:39 05:38 Sodium 144 (136-145) meq/L Potassium 3.5 D (3.5-5.1) meq/L Chloride 112 H D (98-107) meq/L Carbon Dioxide 22.0 (21.0-32.0) meq/L BUN 36 H (7-18) mg/dL Creatinine 3.00 H (0.60-1.30) mg/dL Calcium 8.1 L D (8.5-10.1) mg/dL Direct Bilirubin 0.1 (0.0-0.2) mg/dL Indirect Bilirubin 0.1 (0.0-0.8) mg/dL AST 16 16 (15-37) U/L ALT 12 13 (12-78) U/L Alkaline Phosphatase 83 76 (45-117) U/L Total Protein 5.9 L 5.9 L (6.4-8.2) g/dL Albumin 2.5 L 2.5 L (3.4-5.0) g/dL Intake and Output 05/12/18 05/12/18 05/12/18 06:59 14:59 22:59 Intake Total 1180 / 1180 Output Total 1200 / 1200 Balance -20 Intake: IV 580 / 580 NS Inj 1,000 ML @ 60 mls/hr IV. 580 / 580 CONT .[id number] [facility] Rx#: [id number] Oral 600 / 600 Output: Urine 1200 / 1200 Other: # Voids 9 Date of Last Bowel Movement 05/10/18 05/10/18 # Bowel Movements 0 Weight 94.2 kg Assessment and Plan - Assessment (1) Acute cerebrovascular accident (CVA) Code(s): I63.9 - Cerebral infarction, unspecified Status: Acute - Plan Plan for loop tomorrow AM about 730
[2018-05-12] MEDS: Labetalol HCl Inj 20 MG/4 ML Vial IV.PUSH PRN (16:05)
[2018-05-12] MEDS: Acetaminophen 325 MG Tablet PO PRN (19:12)
[2018-05-13] MEDS: Labetalol HCl Inj 20 MG/4 ML Vial IV.PUSH PRN (04:09)
[2018-05-13] MEDS: Acetaminophen 325 MG Tablet PO PRN ×3 (04:13→21:45)
[2018-05-13] MEDS ORDERED: fentaNYL Citrate Inj 100 MCG/2 ML Ampul ONE (09:47)
[2018-05-13] MEDS ORDERED: Mupirocin 2% Nasal Oint Topical Syringe EACH NARE SCH (10:00)
[2018-05-13] MEDS ORDERED: Vancomycin Inj 1,000 MG in Sodium Chlor 0.9% Inj 250 ML IV.SIG SCH (10:00)
[2018-05-13] MEDS ORDERED: Chlorhexidine Gluconate 2% 1 Pack (2 Cloths) TOPICAL SCH (10:00)
[2018-05-13] MEDS: Metoprolol Tartrate 50 MG Tablet PO SCH ×2 (10:17→21:45)
[2018-05-13 10:34] LABS: Anti-Nuclear Antibody Screen Pos (Neg)
--- NOTE | 2018-05-13 11:45 | MP ---
cc: Markus Harper MD DATE OF OPERATION: 05/13/2018 PROCEDURE PERFORMED: Loop recorder insertion sedation. INDICATIONS FOR PROCEDURE: This patient is a 68-year-old gentleman with TIA, cryptogenic stroke, referred by Dr. Beverly loop recorder insertion. The risks, the nature and the benefits of the procedure are clearly stated to him. Risks include pneumothorax, infection, cardiac perforation, stroke and even . The patient understood and agreed to proceed. DESCRIPTION OF PROCEDURE: After written informed consent was obtained, the patient was brought to the DOCU unit where he was prepped and draped in usual sterile fashion. Conscious sedation was initiated and maintained throughout the procedure using intravenous Versed and Fentanyl. Once sedation was verified, the left parasternal area was anesthetized with 2% Xylocaine. Using a , a less than 1 centimeter incision was made. Subsequently, the loop was inserted under the skin. After adequate sensing obtained, the border was reapproximated using Dermabond and Steri-Strips. No incident to report. The patient tolerated the procedure. Blood loss minimal. The loop recorder is a [employer] model #LNQ11, serial number [id number]. Sensing was at 1.4 millivolts. Setting: The device was set for edouard under 30, tachy over 160. COMMENTS: Successful loop recorder insertion. RECOMMENDATION: The patient can be observed. Further decision by the managing team. MD OLIVERIO Moreno/sb/brigitte , 10:14 AM , 10:20 AM
--- NOTE | 2018-05-13 12:52 | HM ---
Date Performed: 05/10/2018 Time Performed: 19:36:00 HOOKUP DATE: 05/10/18 07:36:00 PM Fri ANALYSIS START TIME: 05/10/2018 7:41:00 PM ANALYSIS END TIME: 05/11/2018 6:58:59 PM PATIENT AGE: 68 PATIENT HEIGHT PATIENT WEIGHT DRUG LIST: ROOM [id number] PATIENT DIAGNOSIS: NEURO TEST NARRATIVE: The patient's average heart rate was 81 BPM. No episodes of tachycardia wer e noted. No episodes of bradycardia were noted. No pauses exceeding 2.0 seconds were noted. 26 ventricular ectopics, which represented < 1% of the total beat count, were noted. The highest keara tricular ectopic frequency occurred from 09:00 PM to 10:00 PM Fri. During this time 4 VE(s) occurred . Ventricular ectopics were observed as 26 isolated beat(s) only. No couplets or runs were noted. 10 supraventricular ectopics, which represented < 1% of the total beat count, were noted. The hig hest supraventricular ectopic frequency occurred from 06:00 PM to 07:00 PM Sat. During this time 4 S VE(s) occurred. No episodes of ST depression (defined as -1.0 mm or more) were noted in channel [address] . No episodes of ST depression (defined as -1.0 mm or more) were noted in channel 2. No episodes of ST depression (defined as -1.0 mm or more) were noted in channel 3. NO DIARY WAS GIVEN TO PATIENT TEST INTERPRETATION: The underlying rhythm is a Sinus rhythm varying from 65-105 bpm. There are rare isolated PVCs and likewise rare PACs including one couplet. There is no significant ST T changes. There are no pauses greater than 2 seconds. Probable normal tra cing for a 68 year old. Signed by : Tim Reynoso
[2018-05-13] MEDS: Insulin NovoLOG Aspart Correctional Sugar Inj SQ SCH ×4 (13:49→21:46)
[2018-05-13] MEDS: Sod Chloride 0.9% Inj 1,000 ML IV.CONT SCH (14:08)
--- NOTE | 2018-05-13 15:44 | P.PNIM ---
Physical Exam Vital signs: Vital Signs 05/12/18 16:00 05/12/18 17:00 05/12/18 17:03 Temperature Pulse Rate 74 78 78 Respiratory Rate 30 H 31 H 29 H Blood Pressure 189/99 H 199/96 H 188/102 H Pulse Oximetry 05/12/18 17:30 05/12/18 18:00 05/12/18 18:30 Temperature Pulse Rate 78 84 80 Respiratory Rate 27 H 28 H 18 Blood Pressure 167/82 H 150/78 H 117/59 L Pulse Oximetry 05/12/18 19:47 05/12/18 19:58 05/12/18 20:48 Temperature 98.1 F Pulse Rate 90 Respiratory Rate 24 16 Blood Pressure 175/81 H Pulse Oximetry 98 98 05/12/18 21:55 05/13/18 00:00 05/13/18 02:00 Temperature 98 F Pulse Rate 67 63 72 Respiratory Rate 14 Blood Pressure 161/88 H Pulse Oximetry 05/13/18 04:00 05/13/18 04:43 05/13/18 06:00 Temperature 97.7 F Pulse Rate 70 64 Respiratory Rate 14 12 Blood Pressure 197/110 H Pulse Oximetry 96 05/13/18 08:00 05/13/18 09:09 05/13/18 14:00 Temperature 98.3 F 98.2 F Pulse Rate 74 74 Respiratory Rate 12 18 Blood Pressure 163/89 H 134/78 Pulse Oximetry 98 94 L 95 05/13/18 15:00 Temperature Pulse Rate 72 Respiratory Rate Blood Pressure Pulse Oximetry Intake & Output 05/12/18 05/13/18 05/13/18 18:59 06:59 18:59 Intake Total 360 / 360 250 / 250 Output Total 800 / 800 600 / 600 Balance -800 / -800 -240 / -240 250 / 250 Intake: IV 250 / 250 Vancomycin Inj 1,000 MG In NS 250 / 250 Inj 250 ML @ 250 mls/hr IV.[facility] [employer] Rx#:[id number] Oral 360 / 360 Output: Urine 800 / 800 600 / 600 Other: Date of Last Bowel Movement 05/10/18 # Bowel Movements 0 Narrative: GENERAL: Pleasant 68-year-old male, well-nourished well-developed appears in not acute distress. CARDIOVASCULAR: Regular rate and rhythm. Shala recorder in place. RESPIRATORY: No accessory muscle use. Clear to auscultation. Breath sounds equal bilaterally. GASTROINTESTINAL: Abdomen soft, non-tender, nondistended. Hepatic and splenic margins not palpable. MUSCULOSKELETAL: Extremities without clubbing, cyanosis, or edema. No obvious deformities. NEUROLOGICAL: Awake and alert. No obvious cranial nerve deficits. Motor grossly within normal limits. Five out of 5 muscle strength in the arms and legs. Left facial droop. slurred speech PSYCHIATRIC: Appropriate mood and affect; insight and judgment normal. Results Labs CBC & Chem 7: 05/12/18 05:38 05/12/18 05:38 Imaging Imaging: Impressions Head CT 05/10/18 12:21 CONCLUSION: 1. Negative for acute process Report was called by Dr. Degroot . Assessment and Plan (1) Acute cerebrovascular accident (CVA): Code(s): I63.9 - Cerebral infarction, unspecified Status: Acute Plan 68-year-old man with Ischemic CVA Continue treatment per ischemic stroke per protocol Head CT negative for acute process MRI with finding of focal area of an acute cortical infarct involving the right caudate nucleus Neurology ff d/c permissive hypertension 2D echo with EF 55-60% and Holter monitoring placed Appreciate input from cardiology, s/p loop recorder placement on Sunday May 13, [address] Harper Continue Lipitor 10 mg at bedtime PT/OT/speech consult to treat and eval Currently on Plavix Hypertension d/c permissive hypertension Start Lopressor 50 mg p.o. 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 Monitor BUN and creatinine, avoid all nephrotoxic drug Renal indices improving with gentle IV fluid hydration, however secondary to sign of volume overload will Hep-Lock fluid Nephrology consultation PRN DVT prophylaxis: Bilateral SCDs Discharge when improved and cleared by consultants Possible discharge tomorrow Physical therapy recommends PT at home Progress Note: Quality VTE Deep Vein Thrombosis/Pulmonary Embolism Present on Admission: No
--- NOTE | 2018-05-13 15:50 | P.DS ---
DS: Providers Date of admission: 05/10/18 13:24 Primary care physician: No Primary Care Physician Consults: 05/10/18 12:21 Consult to Neurology Stat Consulting Provider: Paulo Kinney For STAT consult, spoke directly to:: dr. kinney Preferred Commercial Sales Representative:: Paulo Kinney Reason for Consultation: Brain Attack Notified:: Office Spoke with:: MARISABEL Date Notified:: 05/10/18 Time Notified:: 13:46 Comments:: [id number] Ordering Provider: BRYAN 05/10/18 13:28 Consult to Neurology Routine Consulting Provider: Paulo Kinney Reason for Consultation: Ischemic Stroke Ordering Provider: ABDI 05/11/18 08:27 Consult to Cardiology Routine Consulting Provider: Alfa Beverly Does the patient have a Attendance Clerk who follows them?: Yes Preferred Technical Intern:: Alfa Beverly Reason for Consultation: loop Notified:: Service Spoke with:: gerson Date Notified:: 05/11/18 Time Notified:: 08:33 Ordering Provider: ALEX Brief History from admission: 68-year-old male who past medical history of hypertension, diabetes type 2 and previous history of stroke about a year and half ago per the ED for evaluation of slurred speech, left-sided weakness which initially started around 1 AM this morning. However patient went back to bed and when awake earlier around 6-7 AM he had worsening of slurred speech with significant left-sided weakness. He also reported mild headache. Patient has recently stopped taking his aspirin secondary to a plan eye surgery. While in the ED, initial head CT scan was negative however follow-up brain MRI was positive for ischemic stroke for which neurology was consulted. DS: Diagnosis Discharge Diagnosis (1) Acute cerebrovascular accident (CVA): Status: Acute DS: Summary 68-year-old man with PMH of HTN, HLD, DM2, previous h/o CVA who presented to ED with surred speech. Patient was found with ischemic stroke, MRI showed acute cortical infarct involving the right caudate nucleus. Placed on stroke protocol permissive HTN, neuro consulted. 2D ECHO showed EF of 55-60 %. Patient had a loop recorder placed. PT recommended SNF. The patient improved , he was DC to SNF in stable condition to follow up as OP with PCP and consultants as OP. Patient was DC on coumadin , to have INR checked in SNF results to be forwarded to his PCP and Dr Buck neurology. Note patient was changing insurance and had no PCP, he also did not have refills of his meds and was noncompliant with taking meds because of this reason. Patient has established with PCP and will follow up. Ischemic CVA Continue treatment per ischemic stroke per protocol Head CT negative for acute process MRI with finding of focal area of an acute cortical infarct involving the right caudate nucleus Neurology ff d/c permissive hypertension 2D echo with EF 55-60% Appreciate input from cardiology, s/p loop recorder placement on Sunday May 13, [address] Harper Continue Lipitor 10 mg at bedtime PT/OT/speech consult to treat and eval Currently on Plavix Hypertension d/c permissive hypertension Start Lopressor 50 mg p.o. 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 Monitor BUN and creatinine, avoid all nephrotoxic drug Renal indices improving with gentle IV fluid hydration, however secondary to sign of volume overload will Hep-Lock fluid Nephrology consultation PRN DC to SNF in stable condition to follow up as OP with PCP and consultants Time Spent with Patient Total time spent providing and/or coordinating discharge services: > 30 min Quality: Stroke Last date observed well: 05/09/18 Last time observed well: 23:30 Quality: VTE Deep Vein Thrombosis/Pulmonary Embolism Present on Admission: No Exam Narrative Exam Narrative: GENERAL: Pleasant 68-year-old male, well-nourished well- developed appears in not acute distress. CARDIOVASCULAR: Regular rate and rhythm. Loop recorder in place. RESPIRATORY: No accessory muscle use. Clear to auscultation. Breath sounds equal bilaterally. GASTROINTESTINAL: Abdomen soft, non-tender, nondistended. Hepatic and splenic margins not palpable. MUSCULOSKELETAL: Extremities without clubbing, cyanosis, or edema. No obvious deformities. NEUROLOGICAL: Awake and alert. No obvious cranial nerve deficits. Motor grossly within normal limits. Five out of 5 muscle strength in the arms and legs. Left facial droop. slurred speech PSYCHIATRIC: Appropriate mood and affect; insight and judgment normal. Results Labs on day of discharge: Labs from last 24 hours 05/13/18 05/12/18 05/12/18 13:55 20:43 17:13 POC Glucose 313 H 266 193 ANTWAN Screen ANTWAN Titer ANTWAN Pattern ANTWAN Interpretation RPR 05/10/18 13:25 POC Glucose ANTWAN Screen Pos H ANTWAN Titer Pending ANTWAN Pattern Pending ANTWAN Interpretation Pending RPR Nonreactive Impressions ITS Impressions Head CT 05/10/18 12:21 CONCLUSION: 1. Negative for acute process Report was called by Dr. Degroot . Head CTA 05/10/18 12:21 CONCLUSION: 1. Negative CT of the head Report was called by Dr. Degroot. Neck CTA 05/10/18 12:21 CONCLUSION: 1. Negative for hemodynamically significant carotid stenosis Report was called by Zane. Head MRI 05/10/18 12:40 CONCLUSION: 1. Focal area of acute cortical infarct involving the right caudate nucleus as above. 2. Old area of infarct involving the left cerebellar hemisphere. 3. Microvascular ischemic demyelinative changes. Discharge Plan Discharge Disposition Patient Disposition: Discharge to SNF Discharge Condition Condition: Stable Discharge Order Discharge Orders: Discharge Order (Routine); Ordered 05/14/18 Ordered By: Liliam Johnson Discharge Details Anticipated Discharge Date: 05/13/18 Discharge Comment: DC when arrangements are done Physicians Team ED Provider: Blaine Lucas Primary Care Provider: Primary Care Betsey Ricci Attending Provider: Liliam Johnson Other Providers: Paulo Kinney ; Alfa Beverly ; [facility] Rxs /Orders / Referrals /Forms Prescriptions: New atorvastatin [Lipitor] 10 mg Tablet 10 mg PO HS Qty: 30 RF: 0 metoprolol tartrate 50 mg Tablet 50 mg PO BID Qty: 60 RF: 0 warfarin [Coumadin] 5 mg Tablet 5 mg PO DAILY@1600 Qty: 30 RF: 0 Continue aspirin [Aspirin Low Dose] 81 mg Tablet,Delayed Release (Dr/Ec) 81 mg PO DAILY RF: 0 gabapentin 100 mg Capsule 800 mg PO DAILY RF: 0 insulin glargine [Lantus U-100 Insulin] 100 unit/mL Solution 30 unit SUBCUT BID RF: 0 Discontinued hydrocodone-acetaminophen 10-325 mg Tablet 1 tab PO Q6H PRN (Reason: Pain) RF: 0 Ambulatory Orders / Order Sets / DME: Walker Rolling/GetGo (1 each) (Routine) Location: Determined by Patient Ordered By: Liliam Johnson Prothrombin Time INR (Routine) Location: Determined by Patient Ordered By: Liliam Johnson Referrals: Paulo Kinney MD [Physician] - See Instructions (Dr. Kinney's office will call you with a follow up appointment.) Alfa Beverly MD [Physician] - 05/23/18 2:15 pm (Follow up with Dr Beverly in the [facility] on 05/23/18 @ 2:15) [facility] Caden Boo MD, R2 [FAMILY MEDICINE] - 05/21/18 8:40 am [facility] [Agency] - See Instructions Primary Care Physici,No [Primary Care Provider] - See Instructions (Please call the physician's office to book the appointment to be seen within [2-3 days with your PCP]. If no insurance can follow up at [facility] ) UNKNOWN, [Family Provider] - See Instructions Discharge Instructions Patient Printed Instructions: Metoprolol (By mouth), Warfarin (By mouth), Atorvastatin (By mouth), Heart Healthy Diet (DC), Ischemic Stroke (DC), Cardiac Loop Recorder Insertion (DC) Status ED Status: Left Department Discharge Information Discharge Date/Time: 05/15/18 17:11
--- NOTE | 2018-05-13 15:52 | P.DCO ---
Diagnosis (1) Acute cerebrovascular accident (CVA): Status: Acute Physical Therapy Order: Evaluate and treat Home Health Nursing Order: Medical education, Signs/symptoms of disease process, Medication education-adverse effect and Nursing assessment with vital signs Case Management Consult Case Management Consult-Home Health: Yes I have seen patient Aurelio Coburn on 05/13/18. My clinical findings support the need for the requested home health care services because: Limited mobility due to disease progression I certify that my clinical findings support that this patient is homebound because: Post-op weakness and Unsteady gait/balance
--- NOTE | 2018-05-13 18:11 | P.PNNEU ---
Subjective Active Medications: Active Medications Acetaminophen (Tylenol) 650 mg PO Q4H PRN PRN Reason: HEADACHE Last Admin: 05/13/18 04:13 Dose: 650 mg Acetaminophen (Tylenol) 650 mg PO Q4H PRN PRN Reason: HEADACHE Last Admin: 05/13/18 15:26 Dose: 650 mg Atorvastatin Calcium (Lipitor) 10 mg PO HS [facility] Last Admin: 05/12/18 20:47 Dose: 10 mg Chlorhexidine Gluconate (Chlorhexidine 2% Cloth) 3 pack TOPICAL DIRECTOR OF PUBLIC SAFETY [facility] Stop: 05/16/18 09:52 Last Admin: 05/13/18 11:05 Dose: 3 pack Clopidogrel Bisulfate (Plavix) 75 mg PO DAILY [facility] Last Admin: 05/13/18 10:17 Dose: 75 mg Dextrose (D50w Vial) 50 ml IV.PUSH UNSCH PRN PRN Reason: PER HYPOGLYCEMIA PROTOCOL Glucagon (Glucagon Inj) 1 mg OTHER UNSCH PRN PRN Reason: for Hypoglycemia Protocol Hydralazine HCl (Apresoline) 25 mg PO TID PRN PRN Reason: SBP>180, DBP>100, HR>65 Last Admin: 05/12/18 17:16 Dose: 25 mg Sodium Chloride (Ns Inj) 1,000 mls @ 30 mls/hr IV.CONT .Q24H [facility] Last Admin: 05/13/18 14:08 Dose: Not Given Vancomycin HCl 1,000 mg/ (Sodium Chloride) 250 mls @ 250 mls/hr IV.SIG DIRECTOR OF PUBLIC SAFETY [facility] Stop: 05/16/18 09:53 Last Infusion: 05/13/18 14:08 Dose: Infused Insulin Aspart (Novolog Insulin Correctional Sugar Inj) 0 unit SQ ACHS [facility]; Protocol Last Admin: 05/13/18 17:13 Dose: 7 unit Labetalol HCl (Trandate Inj) 10 mg IV.PUSH Q6H PRN PRN Reason: SBP>180, DBP>110 Last Admin: 05/13/18 04:09 Dose: 10 mg Metoprolol Tartrate (Lopressor) 50 mg PO BID [facility] Last Admin: 05/13/18 10:17 Dose: 50 mg Miscellaneous Medication ([facility] Information) 1 each OTHER ONCE [facility] Stop: 05/15/18 12:38 Mupirocin (Bactroban 2% Nasal Oint) 1 applicatio EACH NARE DIRECTOR OF PUBLIC SAFETY [facility] Stop: 05/16/18 09:52 Povidone Iodine (Betadine 5% Antisepsis Kit) 1 applicatio EACH NARE DIRECTOR OF PUBLIC SAFETY [facility] Stop: 05/16/18 09:52 Sodium Chloride (Ns Flush) 2 ml IV.FLUSH BID [facility] Last Admin: 05/13/18 13:50 Dose: 2 ml Sodium Chloride (Ns Flush) 2 ml IV.FLUSH PRN PRN PRN Reason: FLUSH AFTER USING IV ACCESS Sodium Chloride (Ns Flush) 2 ml IV.FLUSH BID [facility] Last Admin: 05/13/18 13:50 Dose: Not Given Sodium Chloride (Ns Flush) 2 ml IV.FLUSH PRN PRN PRN Reason: FLUSH AFTER USING IV ACCESS Allergies/Adverse Reactions: Allergies Allergy/AdvReac Type Severity Reaction Status Date / Time penicillin G Allergy Severe ANAPHYLACTIC Verified 05/10/18 13:10 REACTION Physical Exam Vital signs: Vital Signs 05/12/18 18:30 05/12/18 19:47 05/12/18 19:58 Temperature 98.1 F Pulse Rate 80 90 Respiratory Rate 18 24 16 Blood Pressure 117/59 L 175/81 H Pulse Oximetry 98 05/12/18 20:48 05/12/18 21:55 05/13/18 00:00 Temperature 98 F Pulse Rate 67 63 Respiratory Rate 14 Blood Pressure 161/88 H Pulse Oximetry 98 05/13/18 02:00 05/13/18 04:00 05/13/18 04:43 Temperature 97.7 F Pulse Rate 72 70 Respiratory Rate 14 12 Blood Pressure 197/110 H Pulse Oximetry 96 05/13/18 06:00 05/13/18 08:00 05/13/18 09:09 Temperature 98.3 F Pulse Rate 64 74 Respiratory Rate 12 Blood Pressure 163/89 H Pulse Oximetry 98 94 L 05/13/18 14:00 05/13/18 15:00 05/13/18 16:00 Temperature 98.2 F 97.5 F L Pulse Rate 74 72 80 Respiratory Rate 18 20 Blood Pressure 134/78 122/67 Pulse Oximetry 95 97 05/13/18 16:49 05/13/18 17:27 Temperature Pulse Rate 78 74 Respiratory Rate Blood Pressure Pulse Oximetry Intake & Output 05/12/18 05/13/18 05/13/18 18:59 06:59 18:59 Intake Total 360 / 360 870 / 870 Output Total 800 / 800 600 / 600 Balance -800 / -800 -240 / -240 870 / 870 Intake: IV 250 / 250 Vancomycin Inj 1,000 MG In NS 250 / 250 Inj 250 ML @ 250 mls/hr IV.SIG DIRECTOR OF PUBLIC SAFETY [facility] Rx#:[id number] Oral 360 / 360 620 / 620 Output: Urine 800 / 800 600 / 600 Other: # Voids 2 Date of Last Bowel Movement 05/10/18 # Bowel Movements 0 Narrative: left droop spotty poor vision bilat with dm retinopathy 4+/5 lue ow moving well Objective Laboratory Results - last 24 hr 05/10/18 05/12/18 05/13/18 13:25 20:43 13:55 POC Glucose 266 313 H ANTWAN Screen Pos H RPR Nonreactive 05/13/18 16:24 POC Glucose 283 H ANTWAN Screen RPR Review/Management - Review/Management Plan: Aciure right sided lacunar stroke HTN DM Neuro checks Q4h Plavix 75 mg daily Cardiac ECHO unremarkable Follow up with cardiology for loop recorder placement Telemetry Can downgrade to a medical floor DVT prophylaxis GI prophylaxis PT/OT, recommendations are appreciated 05/13/18 i reviewed films with nurse sister ctax2 neg echo neg on statin mri shows old left cbllr cva and mult old r mca cva and acute r mca deep cva loop in i suspect occult afib and coumadin started i dced plavix he should go to rehab where they can manage coumadin and then when out of rehab move [place] with sister
[2018-05-13] MEDS: Heparin - SQ 10,000 UNITS/ML Vial SQ SCH (18:39)
[2018-05-14] MEDS: Heparin - SQ 10,000 UNITS/ML Vial SQ SCH ×2 (05:30→17:30)
[2018-05-14 06:28] LABS: Prothrombin Time 9.9 sec (9.8-11.6)
[2018-05-14] MEDS: Insulin NovoLOG Aspart Correctional Sugar Inj SQ SCH ×4 (08:18→21:24)
[2018-05-14] MEDS: hydrALAZINE 25 MG Tablet PO PRN ×2 (08:18→17:18)
[2018-05-14] MEDS: Metoprolol Tartrate 50 MG Tablet PO SCH ×2 (08:18→21:24)
[2018-05-14] MEDS: Acetaminophen 325 MG Tablet PO PRN ×3 (11:57→21:27)
--- NOTE | 2018-05-14 17:50 | P.PNIM ---
Subjective Interval history: The patient is in the chair. No new motor or sensory deficit. Blood pressure is however noted labile. Will start amlodipine. Patient denies any headaches. No chest pain or shortness of breath. No nausea or vomiting. Physical Exam Vital signs: Vital Signs 05/13/18 19:00 05/13/18 20:00 05/13/18 21:00 Temperature 98.0 F Pulse Rate 83 90 88 Respiratory Rate 16 Blood Pressure 178/92 H Pulse Oximetry 98 05/13/18 22:00 05/13/18 23:00 05/13/18 23:15 Temperature 98.2 F Pulse Rate 82 80 80 Respiratory Rate 16 Blood Pressure 146/96 H Pulse Oximetry 99 05/14/18 00:00 05/14/18 01:00 05/14/18 02:00 Temperature Pulse Rate 73 78 70 Respiratory Rate Blood Pressure Pulse Oximetry 05/14/18 03:00 05/14/18 03:55 05/14/18 04:00 Temperature 98.0 F Pulse Rate 72 89 77 Respiratory Rate 16 Blood Pressure 170/90 H Pulse Oximetry 99 05/14/18 05:00 05/14/18 06:00 05/14/18 07:00 Temperature Pulse Rate 76 73 79 Respiratory Rate Blood Pressure Pulse Oximetry 05/14/18 08:00 05/14/18 08:16 05/14/18 09:00 Temperature 97.7 F Pulse Rate 82 81 72 Respiratory Rate 17 Blood Pressure 196/110 H Pulse Oximetry 99 99 05/14/18 09:16 05/14/18 10:00 05/14/18 11:00 Temperature Pulse Rate 68 67 Respiratory Rate Blood Pressure 150/78 H Pulse Oximetry 05/14/18 11:51 05/14/18 17:09 Temperature 97.8 F 98.7 F Pulse Rate 70 74 Respiratory Rate 15 16 Blood Pressure 161/85 H 192/108 H Pulse Oximetry 98 100 Intake & Output 05/13/18 05/14/18 05/14/18 18:59 06:59 18:59 Intake Total 870 / 870 600 / 600 Balance 870 / 870 600 / 600 Weight 94 kg Intake: IV 250 / 250 Vancomycin Inj 1,000 MG In NS 250 / 250 Inj 250 ML @ 250 mls/hr IV.SIG LDR RN [facility] Rx#:[id number] Oral 620 / 620 600 / 600 Other: # Voids 2 2 Date of Last Bowel Movement 05/14/18 Narrative: GENERAL: Pleasant 68-year-old male, well-nourished well-developed appears in not acute distress. CARDIOVASCULAR: Regular rate and rhythm. Shala recorder in place. RESPIRATORY: No accessory muscle use. Clear to auscultation. Breath sounds equal bilaterally. GASTROINTESTINAL: Abdomen soft, non-tender, nondistended. Hepatic and splenic margins not palpable. MUSCULOSKELETAL: Extremities without clubbing, cyanosis, or edema. No obvious deformities. NEUROLOGICAL: Awake and alert. No obvious cranial nerve deficits. Motor grossly within normal limits. Five out of 5 muscle strength in the arms and legs. Left facial droop. slurred speech PSYCHIATRIC: Appropriate mood and affect; insight and judgment normal. Results Labs CBC & Chem 7: 05/12/18 05:38 05/12/18 05:38 Assessment and Plan (1) Acute cerebrovascular accident (CVA): Code(s): I63.9 - Cerebral infarction, unspecified Status: Acute Plan 68-year-old man with Ischemic CVA Continue treatment per ischemic stroke per protocol Head CT negative for acute process MRI with finding of focal area of an acute cortical infarct involving the right caudate nucleus Neurology ff d/c permissive hypertension . Keep normotensive normal glycemic 2D echo with EF 55-60% and Holter monitoring placed Appreciate input from cardiology, s/p loop recorder placement on Sunday May 13, [address] Harper Continue Lipitor 10 mg at bedtime PT/OT/speech consult to treat and eval Currently on Plavix Hypertension d/c permissive hypertension Start Lopressor 50 mg p.o. twice daily. On hydralazine 25 mg p.o. 3 times daily. We will add amlodipine 5 mg blood pressure is still labile. 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 However the patient is homeless. Patient has insurance. Case management consulted for discharge plan and is working on finding a rehab. Discharge plan discharge when arrangements are done. Transfer to [facility] floor. Progress Note: Quality VTE Deep Vein Thrombosis/Pulmonary Embolism Present on Admission: No
[2018-05-14] MEDS: amLODIPine 5 MG Tablet PO SCH (18:17)
[2018-05-14] MEDS: Labetalol HCl Inj 20 MG/4 ML Vial IV.PUSH PRN (18:17)
[2018-05-14] MEDS: Sod Chloride 0.9% Inj 1,000 ML IV.CONT SCH (18:18)
[2018-05-15] MEDS: Heparin - SQ 10,000 UNITS/ML Vial SQ SCH ×2 (05:16→11:43)
[2018-05-15 06:51] LABS: INR 1.1 Ratio
[2018-05-15] MEDS: Acetaminophen 325 MG Tablet PO PRN (08:29)
[2018-05-15] MEDS: Metoprolol Tartrate 50 MG Tablet PO SCH (08:29)
[2018-05-15] MEDS: Insulin NovoLOG Aspart Correctional Sugar Inj SQ SCH ×2 (08:30→13:02)
[2018-05-15] MEDS: amLODIPine 5 MG Tablet PO SCH (08:30)
--- NOTE | 2018-05-15 08:32 | P.PNNEU ---
Subjective Active Medications: Active Medications Acetaminophen (Tylenol) 650 mg PO Q4H PRN PRN Reason: HEADACHE Last Admin: 05/14/18 21:27 Dose: 650 mg Amlodipine Besylate (Norvasc) 5 mg PO DAILY [facility] Last Admin: 05/14/18 18:17 Dose: 5 mg Atorvastatin Calcium (Lipitor) 10 mg PO HS [facility] Last Admin: 05/14/18 21:24 Dose: 10 mg Chlorhexidine Gluconate (Chlorhexidine 2% Cloth) 3 pack TOPICAL IRON GUARDRAIL INSTALLER [facility] Stop: 05/16/18 09:52 Last Admin: 05/13/18 11:05 Dose: 3 pack Dextrose (D50w Vial) 50 ml IV.PUSH UNSCH PRN PRN Reason: PER HYPOGLYCEMIA PROTOCOL Glucagon (Glucagon Inj) 1 mg OTHER UNSCH PRN PRN Reason: for Hypoglycemia Protocol Heparin Sodium (Porcine) (Heparin Inj) 5,000 units SQ Q12H [facility] Last Admin: 05/15/18 05:16 Dose: 5,000 units Hydralazine HCl (Apresoline) 25 mg PO TID PRN PRN Reason: SBP>180, DBP>100, HR>65 Last Admin: 05/14/18 17:18 Dose: 25 mg Sodium Chloride (Ns Inj) 1,000 mls @ 30 mls/hr IV.CONT .Q24H [facility] Last Admin: 05/14/18 18:18 Dose: Not Given Vancomycin HCl 1,000 mg/ (Sodium Chloride) 250 mls @ 250 mls/hr IV.SIG IRON GUARDRAIL INSTALLER [facility] Stop: 05/16/18 09:53 Last Infusion: 05/13/18 14:08 Dose: Infused Insulin Aspart (Novolog Insulin Correctional Sugar Inj) 0 unit SQ ACHS [facility]; Protocol Last Admin: 05/14/18 21:24 Dose: 4 unit Labetalol HCl (Trandate Inj) 10 mg IV.PUSH Q6H PRN PRN Reason: SBP>180, DBP>110 Last Admin: 05/14/18 18:17 Dose: 10 mg Metoprolol Tartrate (Lopressor) 50 mg PO BID [facility] Last Admin: 05/14/18 21:24 Dose: 50 mg Miscellaneous Medication ([facility]) 1 each OTHER ONCE [facility] Stop: 05/15/18 12:38 Mupirocin (Bactroban 2% Nasal Oint) 1 applicatio EACH NARE IRON GUARDRAIL INSTALL[facility] Stop: 05/16/18 09:52 Povidone Iodine (Betadine 5% Antisepsis Kit) 1 applicatio EACH NARE IRON GUARDRAIL INSTALL[employer] [facility] Stop: 05/16/18 09:52 Sodium Chloride (Ns Flush) 2 ml IV.FLUSH BID [facility] Last Admin: 05/14/18 21:25 Dose: 2 ml Sodium Chloride (Ns Flush) 2 ml IV.FLUSH PRN PRN PRN Reason: FLUSH AFTER USING IV ACCESS Warfarin Sodium (Coumadin) 5 mg PO DAILY@1600 [facility] Last Admin: 05/14/18 15:13 Dose: 5 mg Allergies/Adverse Reactions: Allergies Allergy/AdvReac Type Severity Reaction Status Date / Time penicillin G Allergy Severe ANAPHYLACTIC Verified 05/10/18 13:10 REACTION Physical Exam Vital signs: Vital Signs 05/14/18 09:00 05/14/18 09:16 05/14/18 10:00 Temperature Pulse Rate 72 68 Respiratory Rate Blood Pressure 150/78 H Pulse Oximetry 05/14/18 11:00 05/14/18 11:51 05/14/18 12:00 Temperature 97.8 F Pulse Rate 67 70 72 Respiratory Rate 15 Blood Pressure 161/85 H Pulse Oximetry 98 05/14/18 13:00 05/14/18 14:00 05/14/18 15:00 Temperature Pulse Rate 70 74 79 Respiratory Rate Blood Pressure Pulse Oximetry 05/14/18 16:00 05/14/18 17:00 05/14/18 17:09 Temperature 98.7 F Pulse Rate 76 68 74 Respiratory Rate 16 Blood Pressure 192/108 H Pulse Oximetry 100 05/14/18 18:01 05/14/18 18:34 05/14/18 18:38 Temperature Pulse Rate 77 76 Respiratory Rate 17 Blood Pressure 195/116 H 178/96 H Pulse Oximetry 05/14/18 19:00 05/14/18 19:55 05/14/18 20:00 Temperature 98.4 F Pulse Rate 79 84 82 Respiratory Rate 18 Blood Pressure 180/93 H Pulse Oximetry 97 05/14/18 21:00 05/14/18 22:00 05/14/18 23:00 Temperature Pulse Rate 79 70 72 Respiratory Rate Blood Pressure Pulse Oximetry 05/14/18 23:50 05/15/18 00:00 05/15/18 01:00 Temperature 97.8 F Pulse Rate 76 71 66 Respiratory Rate 16 Blood Pressure 157/88 H Pulse Oximetry 98 05/15/18 02:00 05/15/18 03:00 05/15/18 04:00 Temperature 97.8 F Pulse Rate 60 68 76 Respiratory Rate 16 Blood Pressure 137/67 Pulse Oximetry 98 05/15/18 05:00 05/15/18 06:00 05/15/18 08:01 Temperature 98.4 F Pulse Rate 68 67 80 Respiratory Rate 15 Blood Pressure 177/95 H Pulse Oximetry 97 Intake & Output 05/14/18 05/15/18 05/15/18 18:59 06:59 18:59 Intake Total 480 / 480 240 / 240 Output Total 400 / 400 700 / 700 Balance 80 / 80 -460 / -460 Weight 93.8 kg Intake: Oral 480 / 480 240 / 240 Output: Urine 400 / 400 700 / 700 Other: Date of Last Bowel Movement 05/14/18 Narrative: doing well co mild harris temples nontender Objective Laboratory Results - last 24 hr 05/14/18 05/14/18 05/15/18 17:08 21:21 05:21 PT 11.0 INR 1.1 POC Glucose 124 H 256 H Review/Management - Review/Management Plan: Aciure right sided lacunar stroke HTN DM Neuro checks Q4h Plavix 75 mg daily Cardiac ECHO unremarkable Follow up with cardiology for loop recorder placement Telemetry Can downgrade to a medical floor DVT prophylaxis GI prophylaxis PT/OT, recommendations are appreciated 05/13/18 i reviewed films with nurse sister ctax2 neg echo neg on statin mri shows old left cbllr cva and mult old r mca cva and acute r mca deep cva loop in i suspect occult afib and coumadin started i dced plavix he should go to rehab where they can manage coumadin and then when out of rehab move to [place] with sister 05/15/18 check [facility] esr 7.5 coumadin today inr 1.1
[2018-05-15 10:59] LABS: Anti-Nuclear Antibody Titer >1:1280 (Neg)
[2018-05-15] MEDS: Sod Chloride 0.9% Inj 1,000 ML IV.CONT SCH (11:43)
--- NOTE | 2018-05-15 11:44 | P.PNIM ---
Physical Exam Vital signs: Vital Signs 05/14/18 11:51 05/14/18 12:00 05/14/18 13:00 Temperature 97.8 F Pulse Rate 70 72 70 Respiratory Rate 15 Blood Pressure 161/85 H Pulse Oximetry 98 05/14/18 14:00 05/14/18 15:00 05/14/18 16:00 Temperature Pulse Rate 74 79 76 Respiratory Rate Blood Pressure Pulse Oximetry 05/14/18 17:00 05/14/18 17:09 05/14/18 18:01 Temperature 98.7 F Pulse Rate 68 74 Respiratory Rate 16 Blood Pressure 192/108 H 195/116 H Pulse Oximetry 100 05/14/18 18:34 05/14/18 18:38 05/14/18 19:00 Temperature Pulse Rate 77 76 79 Respiratory Rate 17 Blood Pressure 178/96 H Pulse Oximetry 05/14/18 19:55 05/14/18 20:00 05/14/18 21:00 Temperature 98.4 F Pulse Rate 84 82 79 Respiratory Rate 18 Blood Pressure 180/93 H Pulse Oximetry 97 05/14/18 22:00 05/14/18 23:00 05/14/18 23:50 Temperature 97.8 F Pulse Rate 70 72 76 Respiratory Rate 16 Blood Pressure 157/88 H Pulse Oximetry 98 05/15/18 00:00 05/15/18 01:00 05/15/18 02:00 Temperature Pulse Rate 71 66 60 Respiratory Rate Blood Pressure Pulse Oximetry 05/15/18 03:00 05/15/18 04:00 05/15/18 05:00 Temperature 97.8 F Pulse Rate 68 76 68 Respiratory Rate 16 Blood Pressure 137/67 Pulse Oximetry 98 05/15/18 06:00 05/15/18 08:01 05/15/18 09:16 Temperature 98.4 F Pulse Rate 67 80 94 H Respiratory Rate 15 Blood Pressure 177/95 H Pulse Oximetry 97 05/15/18 11:01 Temperature Pulse Rate Respiratory Rate Blood Pressure Pulse Oximetry 98 Intake & Output 05/14/18 05/15/18 05/15/18 18:59 06:59 18:59 Intake Total 480 / 480 240 / 240 Output Total 400 / 400 700 / 700 Balance 80 / 80 -460 / -460 Weight 93.8 kg Intake: Oral 480 / 480 240 / 240 Output: Urine 400 / 400 700 / 700 Other: Date of Last Bowel Movement 02/26/19 02/26/19 Narrative: GENERAL: Pleasant 68-year-old male, well-nourished well-developed appears in not acute distress. CARDIOVASCULAR: Regular rate and rhythm. Shala recorder in place. RESPIRATORY: No accessory muscle use. Clear to auscultation. Breath sounds equal bilaterally. GASTROINTESTINAL: Abdomen soft, non-tender, nondistended. Hepatic and splenic margins not palpable. MUSCULOSKELETAL: Extremities without clubbing, cyanosis, or edema. No obvious deformities. NEUROLOGICAL: Awake and alert. No obvious cranial nerve deficits. Motor grossly within normal limits. Five out of 5 muscle strength in the arms and legs. Left facial droop. slurred speech PSYCHIATRIC: Appropriate mood and affect; insight and judgment normal. Results Labs CBC & Chem 7: 05/12/18 05:38 05/12/18 05:38 Assessment and Plan (1) Acute cerebrovascular accident (CVA): Code(s): I63.9 - Cerebral infarction, unspecified Status: Acute Plan 68-year-old man with Ischemic CVA Continue treatment per ischemic stroke per protocol Head CT negative for acute process MRI with finding of focal area of an acute cortical infarct involving the right caudate nucleus Neurology ff d/c permissive hypertension . Keep normotensive normal glycemic 2D echo with EF 55-60% and Holter monitoring placed Appreciate input from cardiology, s/p loop recorder placement on Sunday May 13, [address] Harper Continue Lipitor 10 mg at bedtime PT/OT/speech consult to treat and eval Currently on Plavix Hypertension d/c permissive hypertension Start Lopressor 50 mg p.o. twice daily. On hydralazine 25 mg p.o. 3 times daily. We will add amlodipine 5 mg blood pressure is still labile. 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 However the patient is homeless. Patient has insurance. Case management consulted for discharge plan and is working on finding a rehab. Discharge plan discharge when arrangements are done. Transfer to [facility] floor. Progress Note: Quality VTE Deep Vein Thrombosis/Pulmonary Embolism Present on Admission: No
[2018-05-15 12:21] VITALS: O2SAT 100
[2018-05-15 14:38] LABS: Methylmalonic Acid 0.63 nmol/mL (<=0.40)
[2018-05-15 15:31] VITALS: BP 158/82; PULSE 60; RESP 16; TEMP 97.6
== END 2018-05-15 17:11 | DRG 41 ==
LOC: PHED 12:12 → PHEDA 13:24 → PHICU 14:05 → HCIS 05-13 09:21
PROVIDERS: ADMIT Hospitalist; ATTEND Hospitalist
CPT/HCPCS: 33282; 33285; 70450; 70496; 70498; 70551; 80048; 80053; 80061; 80076; 80307; 81001; 82550; 82607; 82948; 82962; 83036; 83918; 83921; 84425; 84484; 85025; 85384; 85610; 85651; 85652; 85730; 86038; 86039; 86140; 86592; 86850; 86900; 86901; 90760; 92507; 92522; 92610; 93005; 93225; 93306; 96360; 97110; 97116; 97162; 97167; 97530; 97535; 99152; 99291; G0168; G0195; J0360; J1644; J1815; J2250; J3010; J3370; J7030; J7050; Q9967